=== PATIENT | male | born 1975 | race Caucasian/White ===

== ENCOUNTER 2018-05-19 05:31 | Inpatient (IN) | payer BC, OTHER ==
[~2018-05-19] VITALS: Ht 182.9 cm; Wt 138.9 kg
[~2018-05-19 05:31] MED LIST: ACET-1256 PO; CIPR1TAB11 PO; EFFSR150 PO; FLUT0.15 NAE; LEVO5TAB2 PO; METF-384 PO; MONT1TAB3 PO; OMEG10007 PO; PHEN-571 PO; POLY335019 PO; TAMS0.4C38 PO
[2018-05-19] MEDS ORDERED: MoRPHine SULFATE 10 MG/ML CARP/VIAL IV STA (05:42)
[2018-05-19] MEDS ORDERED: KETOROLAC TROMETHAMINE 30 MG/ML VIAL IV STA (05:42)
[2018-05-19] MEDS ORDERED: ONDANSETRON INJ 2 MG/ML 2 ML VIAL IV STA (05:42)
[2018-05-19] MEDS ORDERED: SODIUM CHLORIDE 0.9% 1000ML 1,000 ML IV ONE (05:45)
[2018-05-19] MEDS ORDERED: GLC/500 PO (06:05)
[2018-05-19] MEDS ORDERED: VENL150C71 PO (06:08)
[2018-05-19 06:09] LABS: BASO % 0.2 %; BASO ABS # 0.02 K/uL (0-0.2); EOS % 0.2 %; EOS ABS # 0.03 K/uL (0-0.5); HEMOGLOBIN 14.1 g/dL (14.0-18.0); IG# 0.04 K/uL (0.00-0.02); LYMPH % 12.7 %; LYMPH ABS # 1.64 K/uL (1.2-3.4); MEAN CELL VOLUME 88.6 fL (80-100); MEAN CORPUSCULAR HEMOGLOBIN 29.7 pg (25-34); MEAN CORPUSCULAR HGB CONC 33.6 g/dl (32-36); MEAN PLATELET VOLUME 10.3 fL (7.4-10.4); MONO % 4.1 %; MONO ABS # 0.53 K/uL (0.11-0.59); NEUT % 82.5 %; NEUT ABS # 10.61 K/uL (1.4-6.5); PLATELET COUNT 217 K/uL (130-400); RED CELL DISTRIBUTION WIDTH CV 14.4 % (11.5-14.5); RED CELL DISTRIBUTION WIDTH SD 47.2 fL (36.4-46.3); WHITE BLOOD COUNT 12.87 K/uL (4.8-10.8)
[2018-05-19 06:29] LABS: CALCIUM 8.8 mg/dl (8.5-10.1); CREATININE 1.33 mg/dl (0.60-1.40); POTASSIUM 3.9 mmol/L (3.5-5.1); TOTAL PROTEIN 7.9 gm/dl (6.4-8.2)
[2018-05-19] MEDS ORDERED: HYDROmorphone INJ 0.5 MG/0.5 ML SYR IV STA (07:25)
--- NOTE | 2018-05-19 08:19 | History and Physical ---
History & Physical Date & Time of Service: May 19, 2018 at 08:00 Chief Complaint: Severe Right Flank Pain,Nausea/Vomiting Primary Care Physician: No Doctor, Assigned History of Present Illness Source: patient 43yo male with history of T2DM, morbid obesity, and prior kidney stone requiring lithotripsy & stent placement who presents with back and right flank pain beginning late last evening. He started having back pain late last night while he and his family were camping at a campground, followed by right flank pain starting about 0130. This was associated with multiple episodes of vomiting as well as vomiting en route to the hospital. He has mild suprapubic pain and dysuria. No obvious fever. Some gross hematuria. He received multiple doses of IV narcotic and anti-emetics in the ER with improved pain and nausea. Past Medical/Surgical History PMH: 1. Nephrolithiasis - 2016, s/p stent placement ([facility] [address]) 2. T2DM 3. allergic rhinitis 4. anxiety PSH: 1. lumbar back surgery - diskectomy 2. 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[employer]) Immunizations History of Influenza Vaccine: Yes History of Tetanus Vaccine?: Yes History of Pneumococcal: No History of Hepatitis B Vaccine: Yes Allergies Coded Allergies: Clarithromycin (Verified Adverse Reaction, Mild, METALLIC TASTE IN MOUTH, 03/13/16) Home Medications Scheduled Fish Oil ([place]-3), 1 CAP PO QPM Fluticasone Propionate (Nasal) (Flonase Allergy Relief), 2 SPRAYS PHONG QAM Levocetirizine Dihydrochloride (Xyzal), 5 MG PO QPM Metformin Hcl (Glucophage), 500 MG PO BID Montelukast Sodium (Singulair), 10 MG PO HS Venlafaxine Hcl (Effexor Xr), 150 MG PO DAILY Scheduled PRN Acetaminophen (Tylenol), 1,000 MG PO TID PRN for Pain Review of Systems Constitutional: + sweats, No fever Eyes: No worsening of vision ENT: + sore throat (from vomiting) Respiratory: No cough, No shortness of breath, No dyspnea on exertion Cardiovascular: No chest pain, No edema Abdomen: + pain, + nausea, + vomiting, No diarrhea, No constipation, No GI bleeding Musculoskeletal: No joint pain Genitourinary - Male: + hematuria, + dysuria Neurologic: + numbness/tingling (left foot - chronic), No memory loss Psychiatric: + anxiety Endocrine: No fatigue Hematologic / Lymphatic: No abnormal bleeding/bruising Integumentary: No rash Allergic / Immunologic: + environmental allergies Physical Exam Vital Signs Date Time Temp Pulse Resp B/P (MAP) Pulse Ox O2 Delivery O2 Flow Rate FiO2 05/19/18 06:44 80 18 156/91 96 Room Air 05/19/18 05:34 36.7 79 18 153/93 95 Room Air General Appearance: no apparent distress, + obese Head: normocephalic, atraumatic Eyes: PERRL ENT: TMs normal, + pharyngeal erythema Neck: supple, no adenopathy, thyroid normal, no JVD Respiratory/Chest: lungs clear, no respiratory distress, no accessory muscle use Cardiovascular: regular rate, rhythm, no gallop, no murmur, normal peripheral pulses Abdomen/GI: normal bowel sounds, non tender, soft, no organomegaly, + pertinent finding (mild flank tenderness, right side) Back: normal inspection Extremities/Musculoskelatal: no pedal edema Neurologic/Psych: no motor/sensory deficits, alert, normal mood/affect, normal reflexes, oriented x 3 Skin: + rash (tinea pedis b/l feet) Lymphatic: no adenopathy (no cervical LAD) Diagnostics Laboratory Results Results Past 24 Hours Test 05/19/18 05:45 05/19/18 05:50 Range/Units Urine Color BROWN Urine Appearance CLOUDY CLEAR Urine pH 5.0 4.5-7.5 Urine Specific [place] 1.027 1.000-1.030 Urine Protein 1+ NEG Urine Glucose (UA) NEG NEG Urine Ketones TRACE NEG Urine Occult Blood 3+ NEG Urine Nitrite NEG NEG Urine Bilirubin NEG NEG Urine Urobilinogen NEG NEG Urine Leukocyte Esterase TRACE NEG Urine WBC (Auto) 1-5 0-5 /hpf Urine RBC (Auto) >30 0-4 /hpf Urine Hyaline Casts (Auto) 5-10 0-5 /lpf Urine Epithelial Cells (Auto) 5-10 0-5 /lpf Urine Bacteria (Auto) NEG NEG Urine Yeast (Auto) NONE PRSENT Bedside Glucose 155 70-99 mg/dl White Blood Count 12.87 4.8-10.8 K/uL Red Blood Count 4.74 4.7-6.1 M/uL Hemoglobin 14.1 14.0-18.0 g/dL Hematocrit 42.0 42-52 % Mean Corpuscular Volume 88.6 80-100 fL Mean Corpuscular Hemoglobin 29.7 25-34 pg Mean Corpuscular Hemoglobin Concent 33.6 32-36 g/dl Platelet Count 217 130-400 K/uL Mean Platelet Volume 10.3 7.4-10.4 fL Neutrophils (%) (Auto) 82.5 % Lymphocytes (%) (Auto) 12.7 % Monocytes (%) (Auto) 4.1 % Eosinophils (%) (Auto) 0.2 % Basophils (%) (Auto) 0.2 % Neutrophils # (Auto) 10.61 1.4-6.5 K/uL Lymphocytes # (Auto) 1.64 1.2-3.4 K/uL Monocytes # (Auto) 0.53 0.11-0.59 K/uL Eosinophils # (Auto) 0.03 0-0.5 K/uL Basophils # (Auto) 0.02 0-0.2 K/uL RDW Standard Deviation 47.2 36.4-46.3 fL RDW Coefficient of Variation 14.4 11.5-14.5 % Immature Granulocyte % (Auto) 0.3 % Immature Granulocyte # (Auto) 0.04 0.00-0.02 K/uL Sodium Level 137 136-145 mmol/L Potassium Level 3.9 3.5-5.1 mmol/L Chloride Level 105 98-107 mmol/L Carbon Dioxide Level 25 21-32 mmol/L Anion Gap 7.0 3-11 mmol/L Blood Urea Nitrogen 19 7-18 mg/dl Creatinine 1.33 0.60-1.40 mg/dl Est Creatinine Clear Calc Drug Dose 103.5 ml/min Estimated GFR () 75.4 Estimated GFR (Non- 65.0 BUN/Creatinine Ratio 14.0 10-20 Random Glucose 155 70-99 mg/dl Calcium Level 8.8 8.5-10.1 mg/dl Total Bilirubin 0.5 0.2-1 mg/dl Aspartate Amino Transf (AST/SGOT) 24 15-37 U/L Alanine Aminotransferase (ALT/SGPT) 38 12-78 U/L Alkaline Phosphatase 71 45-117 U/L Total Protein 7.9 6.4-8.2 gm/dl Albumin 4.0 3.4-5.0 gm/dl Globulin 3.9 2.5-4.0 gm/dl Albumin/Globulin Ratio 1.0 0.9-2 Lipase 264 73-393 U/L Microbiology Results 05/19/18 Urine Culture, Received Pending Diagnostic Radiology CT abd/pelvis - right mid-ureter 6mm kidney stone with mild hydroureteronephrosis Impression Assessment and Plan 43yo male with morbid obesity, prior kidney stone, allergies, and T2DM presenting with right flank pain & vomiting 2nd to an obstructing right-sided kidney stone. 1. right-sided kidney stone - * urology consult requested - I have already spoken with their service * keep NPO except for meds until urology evaluates * copious IV hydration with NS at 200cc/hr * flomax 0.4mg daily * IV pain meds * IV anti-emetics * may have complicating UTI - urine culture pending, antibiotics in meantime * pyridium prn for dysuria * check coags in the event he needs surgical intervention 2. question of UTI - urine culture already sent. Obtain 2 sets of blood cultures and start rocephin 1gm daily. 3. T2DM - hold metformin, BSGs ac/hs, novolog for correction. 4. allergies - substitute zyrtec for xyzal. Cont nasal steroid. 5. DVT proph - SCDs. Chemical means to be held due to possible need for urological surgery. 6. FEN - NPO for now, NS hydration, BMP in am. 7. morbid obesity with BMI 41.5 8. emesis - zantac 50mg IV q8h. Zofran prn. full code level 1 Resuscitation Status VTE Prophylaxis Will order VTE Prophylaxis: Yes (SCDs) Note total visit time 60 minutes
[2018-05-19] MEDS ORDERED: HYDROmorphone INJ 0.5 MG/0.5 ML SYR IV PRN (08:30)
[2018-05-19] MEDS ORDERED: ALUMINUM/MAGNESIUM/SIMETH (MAALOX MAX) 30 ML UDC PO PRN (08:30)
[2018-05-19] MEDS ORDERED: ACETAMINOPHEN 325 MG TAB PO PRN (08:30)
[2018-05-19] MEDS ORDERED: MAGNESIUM HYDROXIDE SUSP 30 ML UDC PO PRN (08:30)
[2018-05-19] MEDS ORDERED: VENLAFAXINE HCL XR 150 MG CAPXR PO SCH (09:00)
--- NOTE | 2018-05-19 09:03 | DIAGNOSTIC IMAGING REPORT ---
ABD/PELVIS WITHOUT FOR STONE CT DOSE: 2305.42 mGy.cm HISTORY: Pain right flank pain TECHNIQUE: Multiaxial CT images of the abdomen and pelvis were performed without the use of intravenous and oral contrast according to the standard department stone protocol. A dose lowering technique was utilized adhering to the principles of ALARA. COMPARISON STUDY: None. FINDINGS: Lung bases are clear. Liver spleen pancreas is unremarkable. Diffuse colonic diverticulosis. 4 mm calcification mid right ureter. Mild fullness right ureter and right renal collecting system. Nonobstructive bowel pattern. Bladder is midline. There are no significant pelvic calcifications. There are several small reactive inguinal nodes. IMPRESSION: 4 mm obstructing calculus mid right ureter. Mild right hydroureteronephrosis. The above report was generated using voice recognition software. It may contain grammatical, syntax or spelling errors. Electronically signed by: Bandar Anne M.D. 05/19/2018 6:48 AM Dictated Date/Time: 05/19/2018 6:40 AM
[2018-05-19 09:35] VITALS: BP 143/91; PULSE 68; TEMP 36.6; Ht 182.9 cm; Wt 138.9 kg
[2018-05-19] MEDS ORDERED: GLUCOSE 40% GEL 15 GM TUBE PO PRN (09:45)
[2018-05-19] MEDS ORDERED: GLUCAGON FOR INJ 1 MG VIAL IM PRN (09:45)
[2018-05-19] MEDS ORDERED: CARBOHYDRATES FOR HYPOGLYCEMIA PO PRN (09:45)
[2018-05-19] MEDS ORDERED: GLUCOSE 10 TABS/TUBE PO PRN (09:45)
[2018-05-19] MEDS ORDERED: DEXTROSE 50% 50 ML SYR IV PRN (09:45)
[2018-05-19] MEDS: SODIUM CHLORIDE 0.9% 1000ML 1,000 ML IV SCH ×4 (10:26→22:43)
[2018-05-19] MEDS: FLUTICASONE PROPIONATE NA SPR 16 GM BTL NAE SCH (11:15)
[2018-05-19] MEDS: TAMSULOSIN HCL 0.4 MG CAP PO SCH (11:19)
[2018-05-19] MEDS: CEFTRIAXONE SOD INJ 1 GM in DEXTROSE 5% ADD-VANTAGE 50ML 50 ML IV SCH (11:20)
--- NOTE | 2018-05-19 11:25 | Urology Consultation ---
History General Date of Service: May 19, 2018. Primary Care Physician: No Doctor, Assigned Pt seen a urologist before?: Yes History of Present Illness Patient is a 43-year-old white male admitted through the emergency room with right renal colic secondary to a 4 mm mid right ureteral calculus. When in the ER the pain was severe currently pain appears to be fairly well- controlled. He has no nausea vomiting fevers or chills currently. Voiding without difficulty. Laboratory Labs were reviewed and are within normal limits unless listed below. 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 History of Influenza Vaccine: Yes History of Tetanus Vaccine?: Yes History of Pneumococcal: No History of Hepatitis B Vaccine: Yes Allergies Coded Allergies: Clarithromycin (Verified Adverse Reaction, Mild, METALLIC TASTE IN MOUTH, 03/13/16) Medications Home Medications: Home Meds and Scripts Medications Dose Route/Sig Max Daily Dose Days Date Category Effexor Xr (Venlafaxine Hcl) 150 Mg Cap 150 Mg PO DAILY 05/19/18 Reported Glucophage (Metformin Hcl) 500 Mg Tab 500 Mg PO BID 05/19/18 Reported Tylenol (Acetaminophen) 500 Mg Tab 1,000 Mg PO TID PRN 03/10/16 Reported [place]-3 (Fish Oil) 1 Ea Cap 1 Cap PO QPM 03/07/16 Reported Singulair (Montelukast Sodium) 10 Mg Tab 10 Mg PO HS 03/07/16 Reported Xyzal (Levocetirizine Dihydrochloride) 5 Mg Tab 5 Mg PO QPM 03/07/16 Reported Flonase Allergy Relief (Fluticasone Propionate (Nasal)) 50 Mcg/Act Spr 2 Sprays PHONG QAM 03/07/16 Reported Inpatient Medications: Current Inpatient Medications Medications (Trade) Dose Ordered Sig/[place] Route Start Time Stop Time Status Last Admin Dose Admin Acetaminophen (Tylenol Tab) 650 mg Q4H PRN PO 05/19/18 08:30 06/18/18 08:29 Al Hydrox/Mg Hydrox/Simethicone (Maalox Max Susp) 15 ml Q4H PRN PO 05/19/18 08:30 06/18/18 08:29 Magnesium Hydroxide (Milk Of Magnesia Susp) 30 ml Q6H PRN PO 05/19/18 08:30 06/18/18 08:29 Ondansetron HCl (Zofran Inj) 4 mg Q6H PRN IV 05/19/18 08:30 06/18/18 08:29 Fluticasone Propionate (Flonase Nasal [place]) 2 sprays QAM PHONG 05/19/18 09:00 06/18/18 08:59 Montelukast Sodium (Singulair Tab) 10 mg HS PO 05/19/18 21:00 06/18/18 20:59 Venlafaxine HCl (effeXOR EXTENDED REL CAP) 150 mg DAILY PO 05/19/18 09:00 06/18/18 08:59 Cetirizine HCl (zyrTEC TAB) 10 mg HS PO 05/19/18 21:00 06/18/18 20:59 Ceftriaxone Sodium 1 gm/ Dextrose 50 ml @ 100 mls/hr Q24H IV 05/19/18 10:00 05/29/18 08:29 05/19/18 11:20 100 MLS/HR Hydromorphone HCl (Dilaudid Inj) 0.5 mg Q3H PRN IV 05/19/18 08:30 06/02/18 08:29 Insulin Aspart (novoLOG ASPART) SLIDING SCALE G... ACHS SC 05/19/18 12:00 06/18/18 11:59 Phenazopyridine HCl (Pyridium Tab) 100 mg TID PRN PO 05/19/18 08:30 06/18/18 08:29 Ranitidine HCl 50 mg/Dextrose 102 ml @ 200 mls/hr Q8H IV 05/19/18 14:00 06/18/18 08:29 Tamsulosin HCl (Flomax Cap) 0.4 mg QAM PO 05/19/18 09:00 06/18/18 08:59 05/19/18 11:19 0.4 MG Sodium Chloride 1,000 ml @ 200 mls/hr Q5H IV 05/19/18 08:30 06/18/18 08:29 05/19/18 10:26 200 MLS/HR Glucose (Glucose 40% Gel) 15-30 GRAMS 15 GRAMS... UD PRN PO 05/19/18 09:45 06/18/18 09:44 Glucose (Glucose Chew Tab) 4-8 Tablets 4 Tabl... UD PRN PO 05/19/18 09:45 06/18/18 09:44 Dextrose (Dextrose 50% 50ML Syringe) 25-50ML 25ML FOR ... UD PRN IV 05/19/18 09:45 06/18/18 09:44 Glucagon (Glucagon Inj) 1 mg UD PRN IM 05/19/18 09:45 06/18/18 09:44 Carbohydrates (Carbohydrates For Hypoglycemia) 15-30 GRAMS 15 grams if BSG 54-69... UD PRN PO 05/19/18 09:45 06/18/18 09:44 Review of Systems Review of Systems Additional Comments: Evaluated from his admitting history and physical and ER notes Physical Exam Vital Signs: Vital Signs Past 12 Hours Date Time Temp Pulse Resp B/P (MAP) Pulse Ox O2 Delivery O2 Flow Rate FiO2 05/19/18 09:35 36.6 68 16 143/91 Room Air 05/19/18 09:15 Room Air 05/19/18 09:01 66 18 133/85 99 05/19/18 08:55 66 18 133/85 99 Room Air 05/19/18 06:44 80 18 156/91 96 Room Air 05/19/18 05:34 36.7 79 18 153/93 95 Room Air Physical Exam: General Appearance: WD/WN, no apparent distress ENT: hearing grossly normal Neck: supple Respiratory/Chest: lungs clear, normal breath sounds Cardiovascular: regular rate, rhythm Gastrointestinal: Abdomen: normal abdomen Assessment & Plan Assessment & Plan Assessment Renal colic secondary to a right ureteral calculus CT reviewed with patient and his stone is approximately 4 mm Several years ago patient had a stent placed for another stone and did not tolerate the stent very well Discussed having extrapleural shockwave lithotripsy tomorrow unstented as if the stone is visible on KUB which he has not had yet I did explain to him that if the stone is not visible then he would be looking at a ureteroscopy laser lithotripsy and stent placement or trial of passage We will review his KUB when available
[2018-05-19] MEDS ORDERED: NURSING VERBAL MED ORDER ONE ×2 (11:30→13:45)
[2018-05-19] MEDS: PHENAZOPYRIDINE HCL 100 MG TAB PO PRN (12:00)
[2018-05-19] MEDS: INSULIN ASPART 100 UNITS/ML 3 ML PEN SC SCH ×3 (12:00→20:58)
--- NOTE | 2018-05-19 13:29 | DIAGNOSTIC IMAGING REPORT ---
KUB CLINICAL HISTORY: Stone pain COMPARISON STUDY: No previous studies for comparison. FINDINGS: The soft tissues, psoas shadows, renal outlines and intestinal gas pattern appear normal. There is no evidence for bowel obstruction. No abnormal abdominal calcifications are seen. IMPRESSION: Normal study. The above report was generated using voice recognition software. It may contain grammatical, syntax or spelling errors. Electronically signed by: Bandar Anne M.D. 05/19/2018 1:27 PM Dictated Date/Time: 05/19/2018 1:25 PM
[2018-05-19] MEDS: ONDANSETRON INJ 2 MG/ML 2 ML VIAL IV PRN (13:30)
[2018-05-19] MEDS: HYDROmorphone INJ 2 MG/ML SYR/VIAL IV PRN ×2 (14:15→19:59)
[2018-05-19] MEDS: RANITIDINE IV 50 MG in DEXTROSE 5% 100ML 100 ML IV SCH ×2 (14:17→21:51)
--- NOTE | 2018-05-19 14:36 | Progress Note ---
Subjective Date of Service: May 19, 2018. (Babmi Webb CRNP) Objective Vital Signs Date Time Temp Pulse Resp B/P (MAP) Pulse Ox O2 Delivery O2 Flow Rate FiO2 05/19/18 09:35 36.6 68 16 143/91 Room Air 05/19/18 09:15 Room Air 05/19/18 09:01 66 18 133/85 99 05/19/18 08:55 66 18 133/85 99 Room Air 05/19/18 06:44 80 18 156/91 96 Room Air 05/19/18 05:34 36.7 79 18 153/93 95 Room Air (Bambi Webb CRNP) Laboratory Results Last 24 Hours Test 05/19/18 05:45 05/19/18 05:50 05/19/18 12:24 Urine Color BROWN Urine Appearance CLOUDY Urine pH 5.0 Urine Specific [place] 1.027 Urine Protein 1+ Urine Glucose (UA) NEG Urine Ketones TRACE Urine Occult Blood 3+ Urine Nitrite NEG Urine Bilirubin NEG Urine Urobilinogen NEG Urine Leukocyte Esterase TRACE Urine WBC (Auto) 1-5 /hpf Urine RBC (Auto) >30 /hpf Urine Hyaline Casts (Auto) 5-10 /lpf Urine Epithelial Cells (Auto) 5-10 /lpf Urine Bacteria (Auto) NEG Urine Yeast (Auto) Bedside Glucose 155 mg/dl 116 mg/dl White Blood Count 12.87 K/uL Red Blood Count 4.74 M/uL Hemoglobin 14.1 g/dL Hematocrit 42.0 % Mean Corpuscular Volume 88.6 fL Mean Corpuscular Hemoglobin 29.7 pg Mean Corpuscular Hemoglobin Concent 33.6 g/dl Platelet Count 217 K/uL Mean Platelet Volume 10.3 fL Neutrophils (%) (Auto) 82.5 % Lymphocytes (%) (Auto) 12.7 % Monocytes (%) (Auto) 4.1 % Eosinophils (%) (Auto) 0.2 % Basophils (%) (Auto) 0.2 % Neutrophils # (Auto) 10.61 K/uL Lymphocytes # (Auto) 1.64 K/uL Monocytes # (Auto) 0.53 K/uL Eosinophils # (Auto) 0.03 K/uL Basophils # (Auto) 0.02 K/uL RDW Standard Deviation 47.2 fL RDW Coefficient of Variation 14.4 % Immature Granulocyte % (Auto) 0.3 % Immature Granulocyte # (Auto) 0.04 K/uL Prothrombin Time 10.8 SECONDS Prothromb Time International Ratio 1.0 Sodium Level 137 mmol/L Potassium Level 3.9 mmol/L Chloride Level 105 mmol/L Carbon Dioxide Level 25 mmol/L Anion Gap 7.0 mmol/L Blood Urea Nitrogen 19 mg/dl Creatinine 1.33 mg/dl Est Creatinine Clear Calc Drug Dose 103.5 ml/min Estimated GFR () 75.4 Estimated GFR (Non- 65.0 BUN/Creatinine Ratio 14.0 Random Glucose 155 mg/dl Calcium Level 8.8 mg/dl Total Bilirubin 0.5 mg/dl Aspartate Amino Transf (AST/SGOT) 24 U/L Alanine Aminotransferase (ALT/SGPT) 38 U/L Alkaline Phosphatase 71 U/L Total Protein 7.9 gm/dl Albumin 4.0 gm/dl Globulin 3.9 gm/dl Albumin/Globulin Ratio 1.0 Lipase 264 U/L (Bambi Webb CRNP) Assessment and Plan Stone not visible on KUB. Patient desires to proceed with cystoscopy, laser lithotripsy with stent placement. Patient believes that he can make it through until tomorrow. Will advance diet today, continue Flomax, IVF, pain management. Strain all urine. Will make NPO at midnight and coordinate procedure for tomorrow. (Bambi Webb CRNP) Agree with plan (Christiano Vallejo M.D.)
[2018-05-19] MEDS ORDERED: IV FLUIDS COMPLETED PRN (14:45)
[2018-05-19 15:17] VITALS: BP 151/89; PULSE 73; TEMP 36.5; O2SAT 94
[2018-05-19 15:45] VITALS: O2SAT 94
--- NOTE | 2018-05-19 16:20 | DIAGNOSTIC IMAGING REPORT ---
CHEST 2 VIEWS ROUTINE CLINICAL HISTORY: Pre op, laser lithotripsy COMPARISON STUDY: 03/10/2016 FINDINGS: The cardiac and mediastinal contours are normal. There is no evidence of focal pulmonary consolidation. There is no evidence of failure. No pleural effusions are visualized.[ IMPRESSION: No active disease in the chest. Electronically signed by: Wellington Booker M.D. 05/19/2018 4:19 PM Dictated Date/Time: 05/19/2018 4:18 PM
[2018-05-19] MEDS: VENLAFAXINE HCL XR 150 MG CAPXR PO SCH (20:59)
[2018-05-19] MEDS: CETIRIZINE HCL 10 MG TAB PO SCH (20:59)
[2018-05-19] MEDS: MONTELUKAST SOD 10 MG TAB PO SCH (20:59)
[2018-05-19 23:06] VITALS: BP 127/72; PULSE 68; TEMP 36.8; O2SAT 97
[2018-05-20] VITALS (8 sets, daily range): BP systolic 124–167; BP diastolic 80–99; PULSE 62–76; TEMP 36.6–36.9; O2SAT 94–97
--- NOTE | 2018-05-20 00:32 | Anesthesiology Progress Note ---
Anesthesia Progress Note Date of Service May 20, 2018. Progress Notes 43yo male with history of T2DM, morbid obesity, and prior kidney stones scheduled for laser lithotripsy. Pt denies history of anesthetic complications. On exam, patient's airway is notable for a MP 3 and morbid obesity. Pt was instructed to remain NPO after midnight except for a sip of water with pills if needed. The patient was consented for general anesthesia. Please contact anesthesia with any questions or concerns. Marilee Baird MD, PhD Anesthesiology
[2018-05-20] MEDS: HYDROmorphone INJ 2 MG/ML SYR/VIAL IV PRN (00:49)
--- NOTE | 2018-05-20 01:01 | EMERGENCY ROOM VISIT NOTE ---
History First contact with patient: 05:38 Chief Complaint: FLANK PAIN Stated Complaint: NEPHROLITHIASIS, NEPHROLITHIASIS History of Present Illness The patient is a 43 year old male who presents to the Emergency Room with complaints of right flank pain that began 4 5 hours ago. The patient does have a history of kidney stones, however his last episode was on the left. His pain feels similar to that previous episode. He was evidently on a short vacation with his family as they were camping between here in the [facility]. The patient states his symptoms began escalating primarily in his back, and that began to radiate into his groin. The pain is a sharp stabbing pain that has a range from a 3/10 to a 10/10. The patient has been experiencing severe nausea and had multiple episodes of emesis when traveling from his campsite to the ER. The patient is diabetic, but believes his sugars have been running well. He had required stenting and a several day hospitalization with his last kidney stone, and was concerned about the same. He attempted to take some Tylenol, however with the nausea and vomiting he is unsure if this is still in his system. Review of Systems More than 10 systems were reviewed and otherwise negative with the exception of history of present illness. 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[employer]) Current/Historical Medications Scheduled Fish Oil (Lamar-3), 1 CAP PO QPM Fluticasone Propionate (Nasal) (Flonase Allergy Relief), 2 SPRAYS PHONG QAM Levocetirizine Dihydrochloride (Xyzal), 5 MG PO QPM Metformin Hcl (Glucophage), 500 MG PO BID Montelukast Sodium (Singulair), 10 MG PO HS Venlafaxine Hcl (Effexor Xr), 150 MG PO DAILY Scheduled PRN Acetaminophen (Tylenol), 1,000 MG PO TID PRN for Pain Physical Exam Vital Signs Date Time Temp Pulse Resp B/P (MAP) Pulse Ox O2 Delivery O2 Flow Rate FiO2 05/19/18 06:44 80 18 156/91 96 Room Air 05/19/18 05:34 36.7 79 18 153/93 95 Room Air Physical Exam VITALS: Vitals are noted on the nurse's note and reviewed by myself. Vital signs stable. GENERAL: Well-developed, well-nourished, white male who is in moderate discomfort secondary to his stated complaint. He is diaphoretic. HEART: Regular rate and rhythm without murmurs gallops or rubs. LUNGS: Clear to auscultation bilaterally without wheezes, rales or rhonchi. No retractions or accessory muscle use. ABDOMEN: Positive normal bowel sounds x 4. Soft, nontender, without masses or organomegaly. No guarding or rebound tenderness. Mild right CVA tenderness. MUSCULOSKELETAL: No muscle atrophy, erythema, or edema noted. Full range of motion in all extremities. Medical Decision & Procedures ER Provider Diagnostic Interpretation: ABD/PELVIS WITHOUT FOR STONE CT DOSE: 2305.42 mGy.cm HISTORY: Pain right flank pain TECHNIQUE: Multiaxial CT images of the abdomen and pelvis were performed without the use of intravenous and oral contrast according to the standard department stone protocol. A dose lowering technique was utilized adhering to the principles of ALARA. COMPARISON STUDY: None. FINDINGS: Lung bases are clear. Liver spleen pancreas is unremarkable. Diffuse colonic diverticulosis. 4 mm calcification mid right ureter. Mild fullness right ureter and right renal collecting system. Nonobstructive bowel pattern. Bladder is midline. There are no significant pelvic calcifications. There are several small reactive inguinal nodes. IMPRESSION: 4 mm obstructing calculus mid right ureter. Mild right hydroureteronephrosis. Laboratory Results 05/19/18 05:50 Red Blood Count 4.74, Mean Corpuscular Volume 88.6, Mean Corpuscular Hemoglobin 29.7, Mean Corpuscular Hemoglobin Concent 33.6, Mean Platelet Volume 10.3, Neutrophils (%) (Auto) 82.5, Lymphocytes (%) (Auto) 12.7, Monocytes (%) (Auto) 4.1, Eosinophils (%) (Auto) 0.2, Basophils (%) (Auto) 0.2, Neutrophils # (Auto) 10.61, Lymphocytes # (Auto) 1.64, Monocytes # (Auto) 0.53, Eosinophils # (Auto) 0.03, Basophils # (Auto) 0.02 05/19/18 05:50 Test 05/19/18 05:45 05/19/18 05:50 Urine Color BROWN Urine Appearance CLOUDY (CLEAR) Urine pH 5.0 (4.5-7.5) Urine Specific [place] 1.027 (1.000-1.030) Urine Protein 1+ (NEG) Urine Glucose (UA) NEG (NEG) Urine Ketones TRACE (NEG) Urine Occult Blood 3+ (NEG) Urine Nitrite NEG (NEG) Urine Bilirubin NEG (NEG) Urine Urobilinogen NEG (NEG) Urine Leukocyte Esterase TRACE (NEG) Urine WBC (Auto) 1-5 /hpf (0-5) Urine RBC (Auto) >30 /hpf (0-4) Urine Hyaline Casts (Auto) 5-10 /lpf (0-5) Urine Epithelial Cells (Auto) 5-10 /lpf (0-5) Urine Bacteria (Auto) NEG (NEG) Urine Yeast (Auto) (NONE PRSENT) White Blood Count 12.87 K/uL (4.8-10.8) Red Blood Count 4.74 M/uL (4.7-6.1) Hemoglobin 14.1 g/dL (14.0-18.0) Hematocrit 42.0 % (42-52) Mean Corpuscular Volume 88.6 fL (80-100) Mean Corpuscular Hemoglobin 29.7 pg (25-34) Mean Corpuscular Hemoglobin Concent 33.6 g/dl (32-36) Platelet Count 217 K/uL (130-400) Mean Platelet Volume 10.3 fL (7.4-10.4) Neutrophils (%) (Auto) 82.5 % Lymphocytes (%) (Auto) 12.7 % Monocytes (%) (Auto) 4.1 % Eosinophils (%) (Auto) 0.2 % Basophils (%) (Auto) 0.2 % Neutrophils # (Auto) 10.61 K/uL (1.4-6.5) Lymphocytes # (Auto) 1.64 K/uL (1.2-3.4) Monocytes # (Auto) 0.53 K/uL (0.11-0.59) Eosinophils # (Auto) 0.03 K/uL (0-0.5) Basophils # (Auto) 0.02 K/uL (0-0.2) RDW Standard Deviation 47.2 fL (36.4-46.3) RDW Coefficient of Variation 14.4 % (11.5-14.5) Immature Granulocyte % (Auto) 0.3 % Immature Granulocyte # (Auto) 0.04 K/uL (0.00-0.02) Prothrombin Time 10.8 SECONDS (9.0-12.0) Prothromb Time International Ratio 1.0 (0.9-1.1) Anion Gap 7.0 mmol/L (3-11) Est Creatinine Clear Calc Drug Dose 103.5 ml/min Estimated GFR () 75.4 Estimated GFR (Non- 65.0 BUN/Creatinine Ratio 14.0 (10-20) Calcium Level 8.8 mg/dl (8.5-10.1) Total Bilirubin 0.5 mg/dl (0.2-1) Aspartate Amino Transf (AST/SGOT) 24 U/L (15-37) Alanine Aminotransferase (ALT/SGPT) 38 U/L (12-78) Alkaline Phosphatase 71 U/L (45-117) Total Protein 7.9 gm/dl (6.4-8.2) Albumin 4.0 gm/dl (3.4-5.0) Globulin 3.9 gm/dl (2.5-4.0) Albumin/Globulin Ratio 1.0 (0.9-2) Lipase 264 U/L (73-393) Medications Administered Medications (Trade) Dose Ordered Sig/Korina Route Start Time Stop Time Status Last Admin Dose Admin Sodium Chloride 1,000 ml @ 999 mls/hr Q1H1M ONCE IV 05/19/18 05:45 05/19/18 06:45 DC 05/19/18 05:54 999 MLS/HR Ketorolac Tromethamine (Toradol Inj) 30 mg NOW STAT IV 05/19/18 05:42 05/19/18 05:48 DC 05/19/18 05:53 30 MG Ondansetron HCl (Zofran Inj) 4 mg NOW STAT IV 05/19/18 05:42 05/19/18 05:48 DC 05/19/18 05:53 4 MG Morphine Sulfate (MoRPHine SULFATE INJ) 8 mg NOW STAT IV 05/19/18 05:42 05/19/18 05:48 DC 05/19/18 05:53 8 MG Hydromorphone HCl (Dilaudid Inj) 0.5 mg NOW STAT IV 05/19/18 07:25 05/19/18 07:26 DC 05/19/18 07:51 0.5 MG Ondansetron HCl (Zofran Inj) 4 mg Q6H PRN IV 05/19/18 08:30 06/18/18 08:29 05/19/18 13:30 4 MG Hydromorphone HCl (Dilaudid Inj) 0.5 mg Q3H PRN IV 05/19/18 08:30 05/19/18 13:46 DC 05/19/18 12:23 0.5 MG Phenazopyridine HCl (Pyridium Tab) 100 mg TID PRN PO 05/19/18 08:30 06/18/18 08:29 05/19/18 12:00 100 MG Sodium Chloride 1,000 ml @ 200 mls/hr Q5H IV 05/19/18 08:30 06/18/18 08:29 05/19/18 22:43 200 MLS/HR ED Course Physical exam and history were performed. Nursing notes, EMR, and Medication List were personally reviewed. Patient appears to have right flank pain bringing him to the emergency department today. The patient was able to provide a urine prior to my arrival to the room and this is brown/bloody on inspection. IV access was established and labs were obtained. Bedside glucose was 155. The patient was hydrated with normal saline. He was given IV Toradol, IV morphine, IV Dilaudid, and IV Zofran for comfort. CT scan was ordered to better evaluate his symptoms. The patient's blood work is as above and was reviewed. The patient does have a mildly elevated white blood cell count. I am unsure if this is from infection or stress reaction from his vomiting in route to the facility. He does not have a significant anemia or gross electrolyte imbalance. His urine is quite bloody. The CT scan is as above and does reveal an obstructing mid ureteral calculi, which does correlate with his symptoms. On reevaluation the patient did have significant improvement of his discomfort after IV narcotics. I discussed options of care with the patient, and he does not feel well for discharge home. He did have a very complicated ureteral stone history in the past, and he is concerned that he may require further urologic intervention. I discussed the case with the on-call hospitalist, who agreed to evaluate the patient here in the department. Please see their dictation for further patient course, plan, and disposition. The chart was completed utilizing Dragon Speech Voice Recognition Software. Grammatical errors, random word insertions, pronoun errors, and incomplete sentences are an occasional consequence of this system due to software limitations, ambient noise, and hardware issues. Any formal questions or concerns about the content, text, or information contained within the body of this dictation should be directly addressed to the provider for clarification. . Medical Decision Differential diagnosis: Etiologies such as renal colic, appendicitis, diverticulitis, mesenteric ischemia, aortic pathology, infections, inflammatory bowel disease, PUD, biliary pathology, UTI, as well as others were entertained. Impression Primary Impression: Nephrolithiasis Additional Impression: Right flank pain Departure Information Dispostion Still a Patient Condition GOOD Referrals No Doctor, Assigned (PCP) Forms HOME CARE DOCUMENTATION FORM, IMPORTANT VISIT INFORMATION Patient Instructions [facility] Health Problem Qualifiers
[2018-05-20] MEDS ORDERED: NURSING DECISION MEDICATION ORDER SCH (01:30)
[2018-05-20] MEDS: SODIUM CHLORIDE 0.9% 1000ML 1,000 ML IV SCH ×4 (03:42→20:15)
[2018-05-20] MEDS: RANITIDINE IV 50 MG in DEXTROSE 5% 100ML 100 ML IV SCH ×2 (05:37→13:51)
[2018-05-20] MEDS: INSULIN ASPART 100 UNITS/ML 3 ML PEN SC SCH ×3 (06:00→21:33)
[2018-05-20 06:47] LABS: BASO % 0.2 %; BASO ABS # 0.02 K/uL (0-0.2); EOS % 1.3 %; EOS ABS # 0.12 K/uL (0-0.5); IG# 0.02 K/uL (0.00-0.02); LYMPH % 30.3 %; LYMPH ABS # 2.78 K/uL (1.2-3.4); MEAN CELL VOLUME 88.9 fL (80-100); MEAN CORPUSCULAR HEMOGLOBIN 28.8 pg (25-34); MEAN CORPUSCULAR HGB CONC 32.4 g/dl (32-36); MEAN PLATELET VOLUME 10.3 fL (7.4-10.4); MONO % 5.8 %; MONO ABS # 0.53 K/uL (0.11-0.59); NEUT % 62.2 %; PLATELET COUNT 179 K/uL (130-400); RED CELL DISTRIBUTION WIDTH CV 14.4 % (11.5-14.5); RED CELL DISTRIBUTION WIDTH SD 47.2 fL (36.4-46.3); WHITE BLOOD COUNT 9.17 K/uL (4.8-10.8)
[2018-05-20 07:19] LABS: CALCIUM 7.9 mg/dl (8.5-10.1); CREATININE 1.19 mg/dl (0.60-1.40); POTASSIUM 4.1 mmol/L (3.5-5.1)
[2018-05-20] MEDS: TAMSULOSIN HCL 0.4 MG CAP PO SCH (08:30)
[2018-05-20] MEDS: FLUTICASONE PROPIONATE NA SPR 16 GM BTL NAE SCH (08:30)
[2018-05-20] MEDS: PHENAZOPYRIDINE HCL 100 MG TAB PO PRN ×2 (08:31→20:05)
[2018-05-20] MEDS: CEFTRIAXONE SOD INJ 1 GM in DEXTROSE 5% ADD-VANTAGE 50ML 50 ML IV SCH (10:08)
--- NOTE | 2018-05-20 13:10 | Urology Progress Note ---
Progress Note Date of Service May 20, 2018. Subjective Pt evaluation today including: conversation w/ patient, physical exam, chart review, lab review, review of studies Pain: Controlled PO Intake: NPO today for procedure Voiding: no voiding problems 43 YO male, mid right ureteral stone Reports that his pain continues in the right flank, controlled with pain medication Has been straining all urine, no stone passage Denies nausea/vomiting Remains afebrile Increased urinary frequency and intermittent hematuria Constitutional: No fever, No chills Respiratory: No shortness of breath Cardiovascular: No chest pain Abdomen: No nausea, No vomiting Male : + urinary frequency, No dysuria, No incontinence Neurologic: No numbness/tingling Objective Vital Signs Date Time Temp Pulse Resp B/P (MAP) Pulse Ox O2 Delivery O2 Flow Rate FiO2 05/20/18 08:49 97 Room Air 05/20/18 08:25 Room Air 05/20/18 07:50 36.7 66 16 124/80 (95) 97 Room Air 05/20/18 00:02 Room Air 05/19/18 23:06 36.8 68 18 127/72 (90) 97 Room Air 05/19/18 15:45 94 Room Air 05/19/18 15:17 36.5 73 18 151/89 (109) 94 Room Air Physical Exam General Appearance: no apparent distress ENT: hearing grossly normal Neck: supple, no JVD Respiratory/Chest: no respiratory distress, no accessory muscle use Cardiovascular: no edema, no JVD Abdomen: soft, + tenderness Extremities: normal inspection Neurologic/Psychiatric: alert, normal mood/affect, oriented x 3 Skin: normal color, warm/dry Laboratory Results Last 24 Hours Test 05/19/18 17:03 05/19/18 20:15 05/20/18 06:01 05/20/18 06:10 Bedside Glucose 185 mg/dl 137 mg/dl 139 mg/dl White Blood Count 9.17 K/uL Red Blood Count 4.16 M/uL Hemoglobin 12.0 g/dL Hematocrit 37.0 % Mean Corpuscular Volume 88.9 fL Mean Corpuscular Hemoglobin 28.8 pg Mean Corpuscular Hemoglobin Concent 32.4 g/dl Platelet Count 179 K/uL Mean Platelet Volume 10.3 fL Neutrophils (%) (Auto) 62.2 % Lymphocytes (%) (Auto) 30.3 % Monocytes (%) (Auto) 5.8 % Eosinophils (%) (Auto) 1.3 % Basophils (%) (Auto) 0.2 % Neutrophils # (Auto) 5.70 K/uL Lymphocytes # (Auto) 2.78 K/uL Monocytes # (Auto) 0.53 K/uL Eosinophils # (Auto) 0.12 K/uL Basophils # (Auto) 0.02 K/uL RDW Standard Deviation 47.2 fL RDW Coefficient of Variation 14.4 % Immature Granulocyte % (Auto) 0.2 % Immature Granulocyte # (Auto) 0.02 K/uL Sodium Level 139 mmol/L Potassium Level 4.1 mmol/L Chloride Level 109 mmol/L Carbon Dioxide Level 23 mmol/L Anion Gap 7.0 mmol/L Blood Urea Nitrogen 14 mg/dl Creatinine 1.19 mg/dl Est Creatinine Clear Calc Drug Dose 115.6 ml/min Estimated GFR () 86.2 Estimated GFR (Non- 74.4 BUN/Creatinine Ratio 12.1 Random Glucose 142 mg/dl Calcium Level 7.9 mg/dl Test 05/20/18 12:03 Bedside Glucose 106 mg/dl Assessment and Plan Will proceed with cystoscopy, laser lithotripsy, with right ureteral stent placement this afternoon. Patient voices understanding and wishes to proceed. If tolerated well likely discharge this evening, possibly tomorrow for pain control. Outpatient follow up to be coordinated.
[2018-05-20] MEDS ORDERED: MIDAZOLAM HCL 1 MG/ML 2ML VIAL ONE (14:46)
[2018-05-20] MEDS ORDERED: FENTANYL CITRATE INJ 50 MCG/1 ML 2 ML VIAL ONE (14:47)
[2018-05-20] MEDS ORDERED: Cysto-Conray II 17.2% 250ML BOTTLE ONE (14:49)
[2018-05-20] MEDS ORDERED: LIDOCAINE HCL 2% 2 ML VIAL (20MG/ML) ONE (14:50)
[2018-05-20] MEDS ORDERED: ONDANSETRON INJ 2 MG/ML 2 ML VIAL ONE (14:50)
[2018-05-20] MEDS ORDERED: DEXAMETHASONE SOD INJ 4 MG/ML VIAL ONE (14:50)
[2018-05-20] MEDS ORDERED: PROPOFOL IV EMULSION 10 MG/ML 20 ML VIAL ONE ×2 (14:50→16:36)
[2018-05-20] MEDS ORDERED: PHEN-775 PO (16:25)
[2018-05-20] MEDS ORDERED: CIPR-255 PO (16:25)
[2018-05-20] MEDS ORDERED: POTATAB13 PO (16:25)
[2018-05-20] MEDS ORDERED: OXYC7.5T65 PO (16:25)
--- NOTE | 2018-05-20 16:27 | Discharge Instructions ---
Discharge Instructions Date of Service May 20, 2018. Admission Reason for Admission: Nephrolithiasis, Nephrolithiasis Discharge Discharge Diagnosis / Problem: R ureteral stone s/p uscope, laser litho, stent Discharge Goals Goal(s): Decrease discomfort, Improve function, Improve disease control, Therapeutic intervention Activity Recommendations Activity Limitations: per Instructions/Follow-up section Lifting Limitations: no more than 25 pounds, gradually increase as tolerated Exercise/Sports Limitations: rest today, gradually increase as tolerated May Resume Sexual Activity: when tolerated, after one week Shower/Bathe: no limitations Driving or Machine Use: resume 1 day after discharge . Instructions / Follow-Up Instructions / Follow-Up Follow-up in [facility] for stent removal - office will call Wednesday for visit date and time. Current Hospital Diet Patient's current hospital diet: Diabetes Type 2 Diet Discharge Diet Recommended Diet: Regular Diet (good fluid intake) Procedures Procedures Performed: Cystoscopy, left semirigid ureteroscopy with basket stone extraction and ureteral stent placement Pending Studies Studies pending at discharge: yes List of pending studies: Stone analysis Medical Emergencies . Who to Call and When: Medical Emergencies: If at any time you feel your situation is an emergency, please call 911 immediately. . Non-Emergent Contact Non-Emergency issues call your: Urologist Call Non-Emergent contact if: you have a fever, temperature is above 101, your pain is not controlled, your pain is worsening, your pain is unusual for you, your pain is concerning you, you have any medication questions . . "Provider Documentation" section prepared by Juanjose Owens. . [place] Drug Monitoring Program Search Results: patient reviewed within database, no issues identified
[2018-05-20] MEDS ORDERED: SUCCINYLCHOLINE 100MG/5ML SYR IV ONE (16:36)
--- NOTE | 2018-05-20 16:55 | [facility] Operative Report ---
Operative Report Operative Date May 20, 2018. Pre-Operative Diagnosis Right radiolucent ureteral stone with intractable colic Post-Operative Diagnosis Right radiolucent ureteral stone with intractable colic Procedure(s) Performed Cystoscopy, left semirigid ureteroscopy with basket stone extraction and ureteral stent placement, meatal dilation Surgeon Dr. 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 Specimens A. Right ureteral stone for chemical analysis Drains 6 [place] 28 cm loop stent on the right-hand side Anesthesia Type General Complication(s) none Disposition no Recovery Room / PACU Indications 43-year-old male with a history of stone disease admitted for acute renal colic to have a radiolucent stone on KUB. Please see urology consultation and progress notes for further details. He is being brought today to the operating room for endoscopic management of his disease. Intravenous ciprofloxacin was provided for antibiotic coverage and SCDs used for DVT prophylaxis. Consent obtained from the patient preoperatively today. Description of Procedure Patient was properly identified and brought into the operative suite after identification for proper consent of the chart. General anesthesia with endotracheal intubation was initiated and patient was prepped and draped in the standard fashion for this procedure. Full timeout procedure was followed. Attempts at passing a 22 [place] rigid cystoscope met with resistance at the level of the meatus consistent with the patient's previous history of meatal stenosis. This was able to be dilated using the rigid cystoscope obturator. 22 [place] rigid cystoscope was passed into the bladder under direct visualization demonstrating an elevated bladder neck with minimal lateral lobe hypertrophy. Mild bladder trabeculation was present with no intravesical lesions, papillary masses or mucosal changes. Left-sided ureteral orifice was noted to be in the normal anatomic location of the right-sided ureteral orifice was noted to have stone material at the orifice. Sensor tip wire was able to be advanced past this up to the level of the right kidney and left in place until the end of the case as a safety wire. Using a second working wire a semirigid ureteroscope was able to be passed beyond the stone and a relatively dilated ureter was noted. Stone was small enough to be able to be grasped using an open-ended basket and extracted from the ureter without resistance or difficulties. Semirigid ureteroscope was readvanced with the ureter up to the level of the vessels with no additional stones being appreciated. A solitary stone was present on CT scan imaging preoperatively. Complete exit ureteroscopy was performed demonstrating no evidence of ureteral injuries or tears. Cystoscope was backloaded over the safety wire and a 6 [place] 28 cm loop ureteral stent was advanced with redundant loops being present within the bladder and a full coil at the level of the right renal pelvis. Hydronephrotic drip was appreciated. Bladder drained and cystoscope was removed. Anesthesia was reversed the patient was transferred to recovery room in stable condition. Follow-up instructions: Patient should be stable for discharge home later today. Prescription for ciprofloxacin, Percocet, Pyridium and potassium citrate for urine pH of 5 and radiolucent stone, suspected uric acid lithiasis is provided. Will arrange for outpatient cystoscopy and stent removal. Patient is instructed to contact our service should he note any fevers, chills, nausea, vomiting or other difficulties in the postoperative period. I attest to the content of the Intraoperative Record and any orders documented therein. Any exceptions are noted below.
[2018-05-20] MEDS ORDERED: PHENAZOPYRIDINE HCL 200 MG TAB PO PRN (17:00)
[2018-05-20] MEDS ORDERED: OXYCODONE/ACETAMINOPHEN 5-325 TAB PO PRN (17:00)
--- NOTE | 2018-05-20 17:05 | DIAGNOSTIC IMAGING REPORT ---
RETROGRADE INCLUDES KUB CLINICAL HISTORY: RT LASER LITHOTRIPSY AND STENT PLACEMENT COMPARISON STUDY: CT of the abdomen and pelvis and KUB May 19, 2018. Fluoroscopy time: 24 seconds. FINDINGS: 3 fluoroscopic images from right retrograde exam were submitted for interpretation. These images demonstrate cannulation of the right ureter with placement of a right ureteral stent which appears appropriately positioned. IMPRESSION: Fluoroscopic images from right retrograde exam with ureteral stent insertion. Electronically signed by: Juan Guerrero M.D. 05/20/2018 5:04 PM Dictated Date/Time: 05/20/2018 5:03 PM
[2018-05-20] MEDS ORDERED: FENTANYL CITRATE INJ 50 MCG/1 ML 2 ML VIAL IV PRN (17:30)
[2018-05-20] MEDS ORDERED: ONDANSETRON INJ 2 MG/ML 2 ML VIAL IV PRN (17:30)
[2018-05-20] MEDS ORDERED: ATROPINE SULFATE 0.1 MG/ML 5ML SYR IV PRN (17:30)
--- NOTE | 2018-05-20 17:32 | Anesthesiology Progress Note ---
Anesthesia Post Op Note Date & Time May 20, 2018 at 17:32 Vital Signs Pain Intensity: 0 Vital Signs Past 12 Hours Date Time Temp Pulse Resp B/P (MAP) Pulse Ox O2 Delivery O2 Flow Rate FiO2 05/20/18 17:25 67 18 139/94 100 Oxymask 10 05/20/18 17:15 76 20 119/70 100 Oxymask 10 05/20/18 17:07 36.8 70 20 103/74 98 Oxymask 10 05/20/18 15:23 36.9 60 16 128/84 (99) 100 Room Air 05/20/18 15:07 36.6 62 18 147/80 (102) 97 Room Air 05/20/18 08:49 97 Room Air 05/20/18 08:25 Room Air 05/20/18 07:50 36.7 66 16 124/80 (95) 97 Room Air Notes Mental Status: alert / awake / arousable, participated in evaluation Pt Amnestic to Procedure: Yes Nausea / Vomiting: adequately controlled Pain: adequately controlled Airway Patency, RR, SpO2: stable & adequate BP & HR: stable & adequate Hydration State: stable & adequate Anesthetic Complications: no major complications apparent
[2018-05-20] MEDS ORDERED: NURSING VERBAL MED ORDER ONE (18:45)
[2018-05-20] MEDS: ONDANSETRON INJ 2 MG/ML 2 ML VIAL IV PRN (20:02)
[2018-05-20] MEDS: OXYCODONE/ACETAMINOPHEN 5-325 TAB PO PRN (20:03)
[2018-05-20] MEDS: VENLAFAXINE HCL XR 150 MG CAPXR PO SCH (21:33)
[2018-05-20] MEDS: MONTELUKAST SOD 10 MG TAB PO SCH (21:33)
[2018-05-20] MEDS: CETIRIZINE HCL 10 MG TAB PO SCH (21:33)
--- NOTE | 2018-05-21 00:41 | Progress Note ---
Subjective Date of Service: May 20, 2018. Subjective Pt evaluation today including: conversation w/ patient, conversation w/ family ( at bedside), physical exam, chart review, lab review Pain: none during the visit PO Intake: was NPO for cysto/stent placement Voiding: no voiding problems feels much better today but did have significant flank/abdominal pain overnight no dizziness no dyspnea no chest pain no vomiting Problem List Medical Problems: (1) Right flank pain Status: Acute Review of Systems Constitutional: No fever, No chills Respiratory: No cough, No shortness of breath Cardiac: No chest pain Abdomen: + pain Objective Vital Signs Date Time Temp Pulse Resp B/P (MAP) Pulse Ox O2 Delivery O2 Flow Rate FiO2 05/20/18 20:00 36.7 75 22 167/99 (121) 97 Room Air 05/20/18 19:11 36.7 64 22 160/93 (115) 94 Room Air 05/20/18 18:30 36.9 76 18 131/84 (100) 94 Room Air 05/20/18 18:30 94 Room Air 05/20/18 17:58 36.9 62 18 133/80 (97) 97 Room Air 05/20/18 17:45 36.6 68 18 134/87 95 Room Air 05/20/18 17:35 67 18 134/85 93 Room Air 05/20/18 17:25 67 18 139/94 100 Oxymask 10 05/20/18 17:15 76 20 119/70 100 Oxymask 10 05/20/18 17:07 36.8 70 20 103/74 98 Oxymask 10 05/20/18 15:23 36.9 60 16 128/84 (99) 100 Room Air 05/20/18 15:07 36.6 62 18 147/80 (102) 97 Room Air 05/20/18 08:49 97 Room Air 05/20/18 08:25 Room Air 05/20/18 07:50 36.7 66 16 124/80 (95) 97 Room Air 05/20/18 00:02 Room Air 05/19/18 23:06 36.8 68 18 127/72 (90) 97 Room Air Physical Exam General Appearance: no apparent distress, + obese ENT: pharynx normal Neck: no JVD Respiratory/Chest: lungs clear, no respiratory distress, no accessory muscle use Cardiovascular: regular rate, rhythm, no gallop, no murmur Abdomen: normal bowel sounds, non tender, soft, no organomegaly Extremities: no pedal edema Neurologic/Psychiatric: alert, normal mood/affect, oriented x 3 Laboratory Results Last 24 Hours Test 05/20/18 06:01 05/20/18 06:10 05/20/18 12:03 05/20/18 17:12 Bedside Glucose 139 mg/dl 106 mg/dl 122 mg/dl White Blood Count 9.17 K/uL Red Blood Count 4.16 M/uL Hemoglobin 12.0 g/dL Hematocrit 37.0 % Mean Corpuscular Volume 88.9 fL Mean Corpuscular Hemoglobin 28.8 pg Mean Corpuscular Hemoglobin Concent 32.4 g/dl Platelet Count 179 K/uL Mean Platelet Volume 10.3 fL Neutrophils (%) (Auto) 62.2 % Lymphocytes (%) (Auto) 30.3 % Monocytes (%) (Auto) 5.8 % Eosinophils (%) (Auto) 1.3 % Basophils (%) (Auto) 0.2 % Neutrophils # (Auto) 5.70 K/uL Lymphocytes # (Auto) 2.78 K/uL Monocytes # (Auto) 0.53 K/uL Eosinophils # (Auto) 0.12 K/uL Basophils # (Auto) 0.02 K/uL RDW Standard Deviation 47.2 fL RDW Coefficient of Variation 14.4 % Immature Granulocyte % (Auto) 0.2 % Immature Granulocyte # (Auto) 0.02 K/uL Sodium Level 139 mmol/L Potassium Level 4.1 mmol/L Chloride Level 109 mmol/L Carbon Dioxide Level 23 mmol/L Anion Gap 7.0 mmol/L Blood Urea Nitrogen 14 mg/dl Creatinine 1.19 mg/dl Est Creatinine Clear Calc Drug Dose 115.6 ml/min Estimated GFR () 86.2 Estimated GFR (Non- 74.4 BUN/Creatinine Ratio 12.1 Random Glucose 142 mg/dl Calcium Level 7.9 mg/dl Assessment and Plan 43yo male with morbid obesity, prior kidney stone, allergies, and T2DM presenting with right flank pain & vomiting 2nd to an obstructing right-sided kidney stone. 1. right-sided kidney stone - symptomatically he is feeling better. However, the plan is for cystoscopy, laser lithotripsy, and stent placement today by Dr. Owens. Will likely remain overnight for observation. 2. question of UTI - urine culture and blood cultures are negative. Can d/c rocephin. No evidence of UTI. 3. T2DM - holding metformin, BSGs ac/hs, novolog for correction. Controlled. 4. allergies - substituting zyrtec for xyzal. Cont nasal steroid. 5. DVT proph - SCDs. Chemical means held at this time. 6. FEN - following his cystoscopy he can eat as tolerated. Cut fluid rate after his procedure to 50cc/hr. BMP am. 7. morbid obesity with BMI 41.5 8. emesis - resolved; has not recurred. hopefully home tomorrow Continued [facility] stay due to: other (cystoscopy with stent placement, etc ) Discharge planning: home
[2018-05-21] MEDS: OXYCODONE/ACETAMINOPHEN 5-325 TAB PO PRN ×2 (01:31→11:29)
[2018-05-21 03:50] VITALS: BP 141/91; PULSE 66; TEMP 36.9; O2SAT 93
[2018-05-21 06:54] VITALS: BP 133/82; PULSE 58; TEMP 36.5; O2SAT 97
--- NOTE | 2018-05-21 07:34 | Progress Note ---
Subjective Date of Service: May 21, 2018. Subjective Pt evaluation today including: conversation w/ patient, physical exam, chart review, lab review, review of inpatient medication list Pain: Dysuria, flank pain resolved. PO Intake: Tolerating a regular diet Voiding: voiding difficulty (Dysuria as noted, likely from meatal stenosis.) 43-year-old male postoperative day #1 status post right ureteroscopy and stone basketing with ureteral stent placement and meatal dilation. He notes dysuria postoperatively but his flank pain is improved. He is tolerating his current stent better than his previous one. Past notes reviewed and intraoperative findings noted with patient. Discharge held yesterday per the hospitalist service due to late time and travel distance per patient. Problem List Medical Problems: (1) Right flank pain Status: Acute Review of Systems Constitutional: No fever, No chills Eyes: No worsening of vision ENT: No hearing loss Respiratory: No sputum, No shortness of breath Cardiac: No chest pain Abdomen: No nausea, No vomiting Male : + dysuria Neurologic: No memory loss, No paralysis Psychiatric: No depression symptoms Heme: No clotting problems Endo: No fatigue Skin: No new/changing skin lesions Objective Vital Signs Date Time Temp Pulse Resp B/P (MAP) Pulse Ox O2 Delivery O2 Flow Rate FiO2 05/21/18 06:54 36.5 58 16 133/82 (99) 97 Room Air 05/21/18 03:50 36.9 66 16 141/91 (108) 93 Room Air 05/20/18 23:50 Room Air 05/20/18 23:39 36.8 65 16 148/89 (108) 97 Room Air 05/20/18 20:00 36.7 75 22 167/99 (121) 97 Room Air 05/20/18 19:11 36.7 64 22 160/93 (115) 94 Room Air 05/20/18 18:30 36.9 76 18 131/84 (100) 94 Room Air 05/20/18 18:30 94 Room Air 05/20/18 17:58 36.9 62 18 133/80 (97) 97 Room Air 05/20/18 17:45 36.6 68 18 134/87 95 Room Air 05/20/18 17:35 67 18 134/85 93 Room Air 05/20/18 17:25 67 18 139/94 100 Oxymask 10 05/20/18 17:15 76 20 119/70 100 Oxymask 10 05/20/18 17:07 36.8 70 20 103/74 98 Oxymask 10 05/20/18 15:23 36.9 60 16 128/84 (99) 100 Room Air 05/20/18 15:07 36.6 62 18 147/80 (102) 97 Room Air 05/20/18 08:49 97 Room Air 05/20/18 08:25 Room Air 05/20/18 07:50 36.7 66 16 124/80 (95) 97 Room Air Physical Exam General Appearance: no apparent distress, + obese Eyes: normal inspection ENT: normal ENT inspection, hearing grossly normal Neck: supple, no adenopathy Respiratory/Chest: no respiratory distress, no accessory muscle use Cardiovascular: no JVD Abdomen: non tender, soft Extremities: non-tender Neurologic/Psychiatric: alert Skin: normal color Laboratory Results Last 24 Hours Test 05/20/18 12:03 05/20/18 17:12 05/20/18 19:22 05/20/18 20:51 Bedside Glucose 106 mg/dl 122 mg/dl 145 mg/dl 174 mg/dl Test 05/21/18 06:58 Assessment and Plan A/P 43-year-old male postoperative day #1 status post right U scope. Will see in the the office for outpatient stent removal as planned this coming week. Prescriptions placed in chart postoperatively yesterday and DC instructions reviewed. We will discuss stone analysis at the time of his follow-up appointment should be available. Patient should be stable for discharge home. Continued [facility] stay due to: other (cystoscopy with stent placement, etc ) Discharge planning: home
[2018-05-21 07:50] LABS: CREATININE 1.15 mg/dl (0.60-1.40); POTASSIUM 4.3 mmol/L (3.5-5.1)
[2018-05-21] MEDS: INSULIN ASPART 100 UNITS/ML 3 ML PEN SC SCH (08:00)
[2018-05-21] MEDS: FLUTICASONE PROPIONATE NA SPR 16 GM BTL NAE SCH (08:35)
[2018-05-21] MEDS: PHENAZOPYRIDINE HCL 100 MG TAB PO PRN (08:35)
[2018-05-21] MEDS: TAMSULOSIN HCL 0.4 MG CAP PO SCH (08:35)
[2018-05-21 10:50] VITALS: BP 133/82; PULSE 58; TEMP 36.5; O2SAT 97
--- NOTE | 2018-05-21 10:56 | Discharge Summary ---
Discharge Summary Date of Service May 21, 2018. Discharge Summary Admission Date: May 19, 2018 at 08:52 Discharge Date: May 20, 2018 Discharge Disposition: Home Principal Diagnosis: Ureterolithiasis Problems/Secondary Diagnoses: Morbid obesity Meatal stenosis Nephrolithiasis Seasonal allergies T2DM Immunizations: Have You Had Influenza Vaccine: Yes History of Tetanus Vaccine?: Yes History of Pneumococcal: No History of Hepatitis B Vaccine: Yes Procedures: Cystoscopy, left semirigid ureteroscopy with basket stone extraction and ureteral stent placement, meatal dilation CT abd/pel CXR KUB Consultations: Urology Medication Reconciliation New Medications: Ciprofloxacin Hcl (Cipro) 500 Mg Tab 500 MG PO BID, #6 TAB Oxycodone/Acetaminophen 7.5MG/325MG (Percocet 7.5MG/325MG) Tab 1 TAB PO Q4 PRN for Pain, #20 TAB Phenazopyridine Hcl (Pyridium) 200 Mg Tab 200 MG PO TID PRN for Bladder pain, #30 TAB Potassium Citrate (Alkalinizer (Urocit-K 15) 15 Meq Tab 15 MEQ PO BID, #60 TAB 6 Refills Continued Medications: Acetaminophen (Tylenol) 500 Mg Tab 1000 MG PO TID PRN for Pain, TAB Fish Oil ([place]-3) 1 Ea Cap 1 CAP PO QPM, CAP Fluticasone Propionate (Nasal) (Flonase Allergy Relief) 50 Mcg/Act Spr 2 SPRAYS PHONG QAM Levocetirizine Dihydrochloride (Xyzal) 5 Mg Tab 5 MG PO QPM, TAB Metformin Hcl (Glucophage) 500 Mg Tab 500 MG PO BID, TAB Montelukast Sodium (Singulair) 10 Mg Tab 10 MG PO HS, TAB Venlafaxine Hcl (Effexor Xr) 150 Mg Cap 150 MG PO DAILY, CAP Discharge Exam Pt feeling much better, no flank pain, no N/V, no lightheadedness. Denies CP or SOB. Having some dysuria. Afebrile. Review of Systems: Constitutional: No fever, No chills, No sweats Eyes: No problem reported ENT: No problem reported Respiratory: No problem reported Cardiovascular: No problem reported Abdomen: No problem reported Musculoskeletal: No problem reported Genitourinary - Male: + dysuria Neurologic: No problem reported Psychiatric: No problem reported Endocrine: No problem reported Hematologic / Lymphatic: No problem reported Integumentary: No problem reported Physical Exam: General Appearance: WD/WN, no apparent distress, + obese Eyes: normal inspection, EOMI, sclerae normal ENT: hearing grossly normal Neck: trachea midline Respiratory/Chest: lungs clear, normal breath sounds, no respiratory distress, no accessory muscle use Cardiovascular: regular rate, rhythm, no edema, no gallop, no murmur Abdomen / GI: normal bowel sounds, non tender (and no CVA tenderness), soft Extremities: normal inspection, no calf tenderness Neurologic/Psychiatric: alert, normal mood/affect, oriented x 3 Skin: normal color, warm/dry, no rash Hospital Course This pt is a 43yo male with morbid obesity, prior kidney stone, allergies, and T2DM presenting with right flank pain & vomiting 2nd to an obstructing right- sided kidney stone. 1. right-sided kidney stone/right hydronephrosis - symptomatically he is feeling better. Now s/o cystoscopy, laser lithotripsy, and stent placement by Dr. Owens. Also had dilatation of meatal stenosis. Dysuria continunes which is expected -continue oxycodone prn, pyridium prn, Cipro x 3 days 2. question of UTI - urine culture and blood cultures are negative. Received rocephin. No evidence of UTI. treating empirically with Cipro anyway for stent placement 3. T2DM - opk to restart metformin on discharge, Controlled. 4. allergies - continue xyzal. Cont nasal steroid. 5. morbid obesity with BMI 41.5 6. emesis - resolved; has not recurred. Stable for dc to home today Total Time Spent: Greater than 30 minutes This includes examination of the patient, discharge planning, medication reconciliation, and communication with other providers. Discharge Instructions Please refer to the electronic Patient Visit Report (Discharge Instructions) for additional information. Follow-Up with PCP within 1-2 weeks With Urology in 1 week Additional Copies To Juanjose Owens MD, Urology; Chacorta Ulrich D.O.
[2018-05-21 11:10] VITALS: BP 128/90; PULSE 65; TEMP 37.1; O2SAT 99
== END 2018-05-21 11:51 | disposition home or self-care (01) | DRG 669 ==
LOC: C.EDB 05:31 → ENRESERV 08:44 → C.MSW 08:52 → EDBEDREQ 08:54
PROVIDERS: ADMIT Internal Medicine; ATTEND Family Medicine
PROC: 0TC78ZZ Extirpation of Matter from Left Ureter, Via Natural or Artificial Opening Endoscopic (ICD-10-PCS; principal; 2018-05-20 07:30)
PROC: 0T778DZ Dilation of Left Ureter with Intraluminal Device, Via Natural or Artificial Opening Endoscopic (ICD-10-PCS; principal; 2018-05-20 07:30)
DX: N20.1 Calculus of ureter (principal); E66.01 Morbid (severe) obesity due to excess calories; Z68.41 Body mass index [BMI] 40.0-44.9, adult; E11.9 Type 2 diabetes mellitus without complications; R11.10 Vomiting, unspecified; Z79.84 Long term (current) use of oral hypoglycemic drugs; Z79.899 Other long term (current) drug therapy; Z88.1 Allergy status to other antibiotic agents

== ENCOUNTER 2023-05-20 18:53 | Inpatient (IN) ==
[2023-05-20] MEDS ORDERED: ONDANSETRON INJ 2 MG/ML 2 ML VIAL IV STA (19:12)
[2023-05-20] MEDS ORDERED: HYDROmorphone INJ 0.5 MG/0.5 ML SYR IV STA (19:12)
[2023-05-20] MEDS ORDERED: SODIUM CHLORIDE 0.9% 1000ML 1,000 ML IV SCH (19:15)
[2023-05-20] MEDS ORDERED: fentaNYL citrate PF 100 MCG/2 ML VIAL IV STA ×2 (19:16→19:35)
[2023-05-20] MEDS ORDERED: LORazepam 2 MG/1 ML VIAL ONE (19:45)
[2023-05-20 20:15] LABS: Basophils # (auto) 0.04 K/uL (0-0.2); Basophils % (auto) 0.3 %; Eosinophils # (auto) 0.03 K/uL (0-0.50); Eosinophils % (auto) 0.2 %; Hematocrit (blood only) 45.5 % (42.0-52.0); Hemoglobin 14.7 g/dl (14.0-18.0); Immature Granulocytes # (auto) 0.09 K/uL (0.01-0.20); Immature Granulocytes % (auto) 0.7 %; Lymphocytes # (auto) 2.16 K/uL (1.2-3.4); Lymphocytes % (auto) 16.9 %; Mean Corpuscular Hemoglobin 28.7 pg (25.0-34.0); Mean Corpuscular Hgb Conc 32.3 g/dL (32.0-36.0); Mean Corpuscular Volume 88.9 fL (80.0-100.0); Mean Platelet Volume 10.2 fL (9.4-12.4); Monocytes # (auto) 0.52 K/uL (0.11-0.59); Monocytes % (auto) 4.1 %; Neutrophils # (auto) 9.92 K/uL (1.40-6.50); Neutrophils % (auto) 77.8 %; Platelet Count 254 K/uL (130-400); RDW Coefficient of Variation 14.2 % (11.5-14.5); RDW Standard Deviation 45.9 fL (36.4-46.3); Red Blood Count 5.12 M/uL (4.70-6.10); White Blood Count 12.76 K/ul (4.8-10.8)
[2023-05-20 20:30] LABS: Albumin Globulin Ratio 1.5 (0.9-2); Albumin Level 4.7 gm/dl (3.4-5.0); BUN Creatinine Ratio 8.5 (10-20); Bilirubin,Total 0.7 mg/dl (0.2-1.0); Calcium 10.4 mg/dl (8.6-10.3); Creatinine Clr Calc Pharmacy 67.8 ml/min; Est GFR (African American) 47.9 ml/min; Est GFR (Non-African American) 41.3 ml/min; Globulin 3.1 gm/dl (2.5-4.0); Total Protein 7.8 gm/dl (6.0-8.3)
[2023-05-20 20:41] LABS: Appearance Urine Turbid (Clear); Blood Urine Negative (Negative); Color Urine Dark Yellow; Epithelial Cell Urine Auto >30 /lpf (0-5); Glucose Urine UA Negative (Negative); Ketones Urine 1+ (Negative); Leukocyte Esterase Urine Negative (Negative); Nitrite Urine Negative (Negative); Protein Urine 2+ (Negative); Specific Gravity Urine 1.033 (1.000-1.030); Urobilinogen Urine Negative (Negative); pH Urine 5.5 (4.5-7.5)
[2023-05-20 20:42] LABS: Bilirubin Urine 1+ (Negative)
[2023-05-20 21:00] LABS: Bacteria Urine Automated 1+ (Negative); Calcium Oxalate Crystals Urine Present (None Prsent); Cast Urine Automated >30 /lpf (0-5); RBC Urine Automated 0-4 /hpf (0-4)
[2023-05-20] MEDS ORDERED: HYDROmorphone INJ 0.5 MG/0.5 ML SYR IV PRN (22:00)
[2023-05-21] MEDS ORDERED: ONDANSETRON INJ 2 MG/ML 2 ML VIAL IV PRN ×2 (00:36→10:37)
[2023-05-21] MEDS ORDERED: Nursing to Pharmacy Communication SCH (01:15)
[2023-05-21] MEDS: SODIUM CHLORIDE 0.9% 1000ML 1,000 ML IV SCH ×2 (01:17→12:01)
[2023-05-21] MEDS: FLUTICASONE PROPIONATE NA SPR 16 GM BTL NAE SCH ×3 (01:27→21:53)
[2023-05-21] MEDS: VENLAFAXINE HCL XR 150 MG CAPXR PO SCH ×2 (01:27→21:53)
[2023-05-21] MEDS: VENLAFAXINE HCL XR 75 MG CAPXR PO SCH ×2 (01:27→21:53)
[2023-05-21] MEDS: TAMSULOSIN HCL 0.4 MG CAP PO SCH ×4 (01:27→21:53)
--- NOTE | 2023-05-21 02:00 | Emergency Department Note ---
Impression & Plan Fracture dislocation of ankle joint ED Provider Note CHIEF COMPLAINT: Ankle pain HISTORY OF PRESENT ILLNESS: This 48-year-old male patient past medical history of obesity, urethral stricture, kidney stones, BPH presents to the emergency department with complaints of left ankle pain and deformity. He states he was weed whacking at an angle, standing on a hill when he slipped. He immediately felt his ankle and saw that it was in the "wrong direction." He states he called for help and bystanders summoned EMS. He does have a history of foot drop in this leg secondary to lumbar disc herniation years ago. He states he also suffers from diabetic neuropathy. REVIEW OF SYSTEMS: A review of systems was performed with positives and pertinent negatives listed in the history of present illness. 10 systems were reviewed and are otherwise negative. ALLERGIES: see below MEDICATIONS: see below PMH: see below SOCIAL HISTORY: see below DDx:Fracture, subluxation, dislocation, contusion, ligamentous injury, neurovascular, compartment syndrome, rhabdomyolysis, as well as other pa thologies. PHYSICAL EXAM: Vital signs reviewed. General: Well-appearing 48-year-old male, in significant discomfort. HEENT: No scleral icterus, PERRLA, neck supple. Atraumatic. Cardiovascular: Regular rate and rhythm, no extra sounds. Pulmonary: Clear to auscultation bilaterally, normal work of breathing. Abdomen: Soft, obese nontender, nondistended, positive bowel sounds. Musculoskeletal: Left ankle with significant deformity and lateral displacement of the foot with external rotation. Neurovascularly intact distally. Neurologic: Patient awake alert and oriented x 3, speech is clear Skin: Warm, dry, no rash EMERGENCY DEPARTMENT COURSE/MDM: This patient was evaluated and appeared to be in significant discomfort. Neurovascular exam of the left ankle fracture dislocation was intact. Ankle is felt to be in need of urgent reduction. Pt had a snack 2 hrs prior to arrival. He was given IV dilaudid 0.5 mg x1 for pain, zofran 4 mg IV. XR was obtained and reveals fx/dislocation of the ankle. Due to the severe deformity of the ankle, fentanyl 100mcg was repeated and the joint reduced, as below. He did require IV valium 5 mg prior to second attempt at adequate reduction. Case was reviewed with Dr. Shore of ortho who admitted the patient for definitive operative management. Pt was informed of the findings and plan. PROCEDURE:Anterior Shoulder Dislocation Reduction Indication: Left ankle fracture dislocation Verbal consent obtained. Risks and benefits were explained with the usual customary discussion. A time out was taken. Neurovascular examination before the procedure was intact. The L ankle fracture/dislocation was reduced by placing the patient supine with the left leg at a 90 degree angle and exaggerating the deformity traction on the foot, countertraction at the thigh was applied. This resulted in a near reduction without complication. Neurovascular examination after the procedure was intact however more complete reduction was desired. Patient was then given Ativan and Dr. Vásquez was called to assist in further reduction with success. The patient had significant pain relief and tolerated the procedure well. Please see Dr. Vásquez's notes for further details. MONITORING: An order for cardiac monitoring was placed and the patient is noted to be in a normal sinus rhythm at 81 beats per minute. RADIOLOGY: X-ray of the left ankle to my interpretation reveals evidence of trimalleolar fracture with lateral displacement of the foot and external rotation. Postreduction x-ray of the left ankle to my interpretation reveals better alignment of the fracture. EKG: To my interpretation reveals normal sinus rhythm at 93 bpm. Incomplete right bundle branch block, previous inferior infarct with Q waves noted. QTc is 469. When compared to previous dated May 19, 2018, inferior Q waves are now noted. T wave abnormality in the anterior leads is new. DISPOSITION: Admission Past Med/Surg History Medical History BPH with obstruction/lower urinary tract symptoms Depression Diabetes Kidney stones Recurrent nephrolithiasis Surgical History Previous back surgery 02/2010 Social History Smoking Status: Never smoker Hx Alcohol Use: No Hx Substance Use: No Preferred Language: Indonesian Communication Ability: Effective Lumber Checker Required: No Beliefs That Will Affect Care: Scientology Scientology Beliefs: Methedist Current Living Situation: Family Current Living Situation Comment: Lives at home with , 2 kids, and 2 puppies. Feels Safe at Home: Yes Assistive Devices: None Allergies Allergies Allergy/AdvReac Type Severity Reaction Status Date / Time dog dander Allergy Verified 06/02/22 15:39 house dust mite Allergy Verified 06/02/22 15:39 clarithromycin AdvReac Mild METALLIC Verified 06/02/22 15:39 TASTE IN MOUTH Home Meds Home Medications Medication Instructions Recorded Confirmed fluticasone propionate 50 1 sprays intranasal BID 11/14/19 05/20/23 mcg/actuation nasal spray,suspension (Flonase Allergy Relief) levocetirizine 5 mg tablet (Xyzal) 5 mg PO DAILY PRN Allergy Symptoms 11/14/19 05/20/23 montelukast 10 mg tablet 10 mg PO DAILY 11/14/19 05/20/23 (Singulair) metformin 500 mg tablet 100 mg PO AMPM 05/20/23 05/20/23 semaglutide 0.25 mg or 0.5 mg (2 0.25 - 0.5 mg subcut WK 05/20/23 05/20/23 mg/3 mL) subcutaneous pen injector (Ozempic) tamsulosin 0.4 mg capsule 0.4 mg PO AMHS 05/20/23 05/20/23 venlafaxine 150 mg tablet,extended 150 mg PO QAM 05/20/23 05/20/23 release 24 hr venlafaxine 75 mg capsule,extended 75 mg PO QAM 05/20/23 05/20/23 release 24 hr Previous Rx's Medication Instructions Recorded aspirin 81 mg tablet,delayed 81 mg PO BID 42 days #84 tabs 05/23/23 release oxycodone 5 mg tablet 5 mg PO Q4H PRN pain #30 tabs 05/23/23 Results & Data (ED) Vital Signs Vital Signs - 24 hr 05/20/23 19:01 05/20/23 19:30 05/20/23 19:45 Temperature 36.7 C Temperature Source Temporal Artery Scan Pulse Rate 114 H 78 97 H Pulse Rate from SpO2 Sensor Pulse Rhythm Regular Respiratory Rate 18 Respiratory Effort / Characteristics Non-Labored Spontaneous Respiratory Depth Normal Respiratory Pattern Regular Blood Pressure Blood Pressure Mean Pulse Oximetry 100 98 Oxygen Delivery Method Room Air Room Air Sepsis Recent Fever Within 48 Hours No Sepsis New/Unexplained Change in Mental Status No Sepsis Action Taken by Nursing No Action Required 05/20/23 19:36 05/20/23 19:40 05/20/23 19:50 Temperature Temperature Source Pulse Rate 101 H 94 H 103 H Pulse Rate from SpO2 Sensor 91 H 94 H 102 H Pulse Rhythm Respiratory Rate 18 23 21 Respiratory Effort / Characteristics Respiratory Depth Respiratory Pattern Blood Pressure Blood Pressure Mean Pulse Oximetry 96 93 95 Oxygen Delivery Method Sepsis Recent Fever Within 48 Hours Sepsis New/Unexplained Change in Mental Status Sepsis Action Taken by Nursing 05/20/23 20:00 05/20/23 20:00 05/20/23 20:10 Temperature Temperature Source Pulse Rate 105 H 102 H Pulse Rate from SpO2 Sensor 104 H 102 H Pulse Rhythm Respiratory Rate 22 30 H Respiratory Effort / Characteristics Respiratory Depth Respiratory Pattern Blood Pressure 153/104 H Blood Pressure Mean 109 Pulse Oximetry 94 96 Oxygen Delivery Method Sepsis Recent Fever Within 48 Hours Sepsis New/Unexplained Change in Mental Status Sepsis Action Taken by Nursing 05/20/23 20:20 05/20/23 20:30 05/20/23 20:30 Temperature Temperature Source Pulse Rate 94 H 94 H Pulse Rate from SpO2 Sensor 94 H 95 H Pulse Rhythm Respiratory Rate 21 24 Respiratory Effort / Characteristics Respiratory Depth Respiratory Pattern Blood Pressure 141/84 H Blood Pressure Mean 110 Pulse Oximetry 95 95 Oxygen Delivery Method Sepsis Recent Fever Within 48 Hours Sepsis New/Unexplained Change in Mental Status Sepsis Action Taken by Nursing 05/20/23 20:40 05/20/23 20:50 Temperature Temperature Source Pulse Rate 94 H 91 H Pulse Rate from SpO2 Sensor 94 H 94 H Pulse Rhythm Respiratory Rate 21 23 Respiratory Effort / Characteristics Respiratory Depth Respiratory Pattern Blood Pressure Blood Pressure Mean Pulse Oximetry 95 95 Oxygen Delivery Method Sepsis Recent Fever Within 48 Hours Sepsis New/Unexplained Change in Mental Status Sepsis Action Taken by Retirement Medications Current Medication List: was personally reviewed by me Laboratory Data Attestation: I reviewed the patient's lab results. 05/20/23 Unknown 05/20/23 Unknown Administered Medications Discontinued Medications Aspirin (Aspirin 81 Mg Ectab) 81 mg PO BID [facility] Stop: 06/21/23 08:59 Last Admin: 05/23/23 08:52 Dose: 81 mg Documented By: Admin: 05/22/23 20:01 Dose: 81 mg Documented By: Admin: 05/22/23 08:38 Dose: 81 mg Documented By: DEMETRI Diazepam (Diazepam 5 Mg/Ml Inj 10ml Vial) Confirm Administered Dose 50 mg .ROUTE .STK-MED ONE Stop: 05/20/23 19:46 Last Admin: 05/20/23 20:09 Dose: Not Given Documented By: DAYANA Fentanyl Citrate (Fentanyl Citrate Pf 100 Mcg/2 Ml Vial) 100 mcg IV NOW STA Stop: 05/20/23 19:17 Last Admin: 05/20/23 19:28 Dose: 100 mcg Documented By: DAYANA Fentanyl Citrate (Fentanyl Citrate Pf 100 Mcg/2 Ml Vial) 100 mcg IV NOW STA Stop: 05/20/23 19:36 Last Admin: 05/20/23 19:38 Dose: 100 mcg Documented By: DAYANA Fluticasone Propionate (Fluticasone Propionate Na Spr 16 Gm Btl) 1 sprays PHONG BID TERRIE Stop: 06/20/23 00:35 Last Admin: 05/23/23 08:52 Dose: 1 sprays Documented By: Admin: 05/22/23 20:01 Dose: 1 sprays Documented By: Admin: 05/22/23 08:39 Dose: 1 sprays Documented By: Admin: 05/21/23 21:53 Dose: 1 sprays Documented By: Admin: 05/21/23 10:17 Dose: Not Given Documented By: Admin: 05/21/23 01:27 Dose: 1 sprays Documented By: CHAIM Hydromorphone HCl (Hydromorphone Inj 0.5 Mg/0.5 Ml Syr) 0.5 mg IV NOW STA Stop: 05/20/23 19:13 Last Admin: 05/20/23 19:35 Dose: Not Given Documented By: DAYANA Hydromorphone HCl (Hydromorphone Inj 0.5 Mg/0.5 Ml Syr) 0.5 mg IV Q1H PRN PRN Reason: Pain Stop: 06/03/23 21:59 Last Admin: 05/20/23 22:03 Dose: 0.5 mg Documented By: DAYANA Hydromorphone HCl (Hydromorphone Inj 0.5 Mg/0.5 Ml Syr) 0.5 mg IV Q2H PRN PRN Reason: Pain Stop: 06/04/23 00:35 Last Admin: 05/22/23 17:52 Dose: 0.5 mg Documented By: Admin: 05/22/23 11:10 Dose: 0.5 mg Documented By: Admin: 05/22/23 08:38 Dose: 0.5 mg Documented By: Admin: 05/22/23 06:36 Dose: 0.5 mg Documented By: Admin: 05/22/23 04:30 Dose: 0.5 mg Documented By: Admin: 05/22/23 02:10 Dose: 0.5 mg Documented By: Admin: 05/21/23 23:55 Dose: 0.5 mg Documented By: Admin: 05/21/23 21:49 Dose: 0.5 mg Documented By: Admin: 05/21/23 19:42 Dose: 0.5 mg Documented By: Admin: 05/21/23 17:21 Dose: 0.5 mg Documented By: Admin: 05/21/23 08:33 Dose: 0.5 mg Documented By: IQRA Sodium Chloride (Nss 1000ml) 1,000 mls @ 999 mls/hr IV .Q1H1M TERRIE Stop: 05/20/23 20:15 Last Infusion: 05/20/23 20:38 Dose: 0 mls/hr Documented By: Admin: 05/20/23 19:30 Dose: 999 mls/hr Documented By: DAYANA Sodium Chloride (Nss 1000ml) 1,000 mls @ 80 mls/hr IV .[id number] TERRIE Stop: 06/20/23 00:35 Last Infusion: 05/21/23 17:16 Dose: 0 mls/hr Documented By: Admin: 05/21/23 12:01 Dose: 80 mls/hr Documented By: Infusion: 05/21/23 11:43 Dose: 0 mls/hr Documented By: Infusion: 05/21/23 07:20 Dose: 0 mls/hr Documented By: Admin: 05/21/23 01:17 Dose: 80 mls/hr Documented By: CHAIM Cefazolin Sodium (Ancef 3000mg) 72.5 mls @ 130 mls/hr IV PREOP TERRIE; Protocol Stop: 05/21/23 16:00 Last Admin: 05/21/23 11:44 Dose: Not Given Documented By: CELINE Lactated Ringer's (Lr) 500 mls @ 999 mls/hr IV .Q31M ONE Stop: 05/21/23 09:26 Last Infusion: 05/21/23 11:44 Dose: 0 mls/hr Documented By: Admin: 05/21/23 08:40 Dose: 999 mls/hr Documented By: IQRA Ceftriaxone Sodium 2,000 mg/ (Dextrose) 70 mls @ 100 mls/hr IV Q24H TERRIE; Protocol Stop: 05/26/23 14:14 Last Infusion: 05/22/23 14:13 Dose: 0 mls/hr Documented By: Admin: 05/22/23 13:07 Dose: 100 mls/hr Documented By: Infusion: 05/21/23 16:48 Dose: 0 mls/hr Documented By: Admin: 05/21/23 16:01 Dose: 100 mls/hr Documented By: CELINE Magnesium Sulfate/Dextrose (Magnesium Sulfate / D5w) 1 gm in 100 mls @ 50 mls/hr IV ONE ONE Stop: 05/22/23 09:59 Last Infusion: 05/22/23 10:54 Dose: 0 mls/hr Documented By: Admin: 05/22/23 08:38 Dose: 50 mls/hr Documented By: DEMETRI Insulin Aspart (Insulin Aspart Per Unit Charge) 0 units SC ACHS TERRIE Stop: 06/20/23 16:29 Last Admin: 05/23/23 08:47 Dose: 4 units Documented By: VITO Co-signed By: DEMETRI Admin: 05/22/23 20:41 Dose: Not Given Documented By: ARTIE Co-signed By: KIRIT Admin: 05/22/23 17:49 Dose: 3 units Documented By: DEMETRI Co-signed By: FELIPA Admin: 05/22/23 13:07 Dose: 5 units Documented By: DEMETRI Co-signed By: FELIPA Admin: 05/22/23 08:37 Dose: 5 units Documented By: DEMETRI Co-signed By: KRANTHI Admin: 05/21/23 20:42 Dose: Not Given Documented By: Admin: 05/21/23 18:22 Dose: Not Given Documented By: CELINE Insulin Glargine (Lantus Per Unit Charge) 5 units SQ BID TERRIE Stop: 06/20/23 20:59 Last Admin: 05/23/23 09:09 Dose: 5 units Documented By: VITO Co-signed By: MARTIN Admin: 05/22/23 20:41 Dose: 5 units Documented By: ARTIE Co-signed By: KIRIT Admin: 05/22/23 08:37 Dose: 5 units Documented By: DEMETRI Co-signed By: KRANTHI Admin: 05/21/23 20:46 Dose: 5 units Documented By: MUKUND Co-signed By: ALECIA Ketorolac Tromethamine (Ketorolac 30 Mg/Ml Vial) 30 mg IV Q8 TERRIE Stop: 05/27/23 13:59 Last Admin: 05/23/23 05:10 Dose: 30 mg Documented By: Admin: 05/22/23 21:37 Dose: 30 mg Documented By: Admin: 05/22/23 13:54 Dose: 30 mg Documented By: DEMETRI Lorazepam (Lorazepam 2 Mg/1 Ml Vial) Confirm Administered Dose 2 mg .ROUTE .STK-MED ONE Stop: 05/20/23 19:46 Last Admin: 05/20/23 19:50 Dose: 2 mg Documented By: DAYANA Montelukast Sodium (Montelukast Sodium 10 Mg Tablet) 10 mg PO DAILY TERRIE Stop: 06/20/23 08:59 Last Admin: 05/23/23 08:51 Dose: 10 mg Documented By: Admin: 05/22/23 08:38 Dose: 10 mg Documented By: Admin: 05/21/23 10:17 Dose: Not Given Documented By: CELINE Ondansetron HCl (Ondansetron Inj 2 Mg/Ml 2 Ml Vial) 4 mg IV NOW STA Stop: 05/20/23 19:13 Last Admin: 05/20/23 19:27 Dose: 4 mg Documented By: DAYANA Oxycodone HCl (Oxycodone Hcl Ir 5 Mg Tab (Immediate Release)) 5 mg PO Q4H PRN PRN Reason: Pain Stop: 06/04/23 11:41 Last Admin: 05/23/23 10:49 Dose: 5 mg Documented By: Admin: 05/22/23 10:12 Dose: 5 mg Documented By: Admin: 05/22/23 00:49 Dose: 5 mg Documented By: Admin: 05/21/23 20:46 Dose: 5 mg Documented By: Admin: 05/21/23 15:57 Dose: 5 mg Documented By: CELINE Tamsulosin HCl (Tamsulosin Hcl 0.4 Mg Cap) 0.4 mg PO AMHS TERRIE Stop: 06/20/23 00:35 Last Admin: 05/23/23 08:51 Dose: 0.4 mg Documented By: Admin: 05/22/23 20:01 Dose: 0.4 mg Documented By: Admin: 05/22/23 08:39 Dose: 0.4 mg Documented By: Admin: 05/21/23 21:53 Dose: 0.4 mg Documented By: Admin: 05/21/23 14:12 Dose: 0.4 mg Documented By: Admin: 05/21/23 01:27 Dose: 0.4 mg Documented By: CHAIM Venlafaxine HCl (Venlafaxine Hcl Xr 75 Mg Capxr) 75 mg PO HS TERRIE Stop: 06/20/23 01:14 Last Admin: 05/22/23 20:00 Dose: 75 mg Documented By: Admin: 05/21/23 21:53 Dose: 75 mg Documented By: Admin: 05/21/23 01:27 Dose: 75 mg Documented By: CHAIM Venlafaxine HCl (Venlafaxine Hcl Xr 150 Mg Capxr) 150 mg PO HS TERRIE Stop: 06/20/23 01:14 Last Admin: 05/22/23 20:01 Dose: 150 mg Documented By: Admin: 05/21/23 21:53 Dose: 150 mg Documented By: Admin: 05/21/23 01:27 Dose: 150 mg Documented By: CHAIM Imaging Data Radiologist's Impression: Ankle X-Ray 05/20/23 19:05 LEFT ANKLE 3 VIEWS CLINICAL HISTORY: Left ankle trauma. FINDINGS: 3 portable views of the left ankle are obtained. No prior studies are available for comparison at the time of dictation. The skeletal structures are well mineralized. There is a displaced horizontal fracture of the distal fibula. There is lateral displacement of the distal fragment by approximately 2 cm, as well as approximately 3.5 cm of overriding of fragments. There is also a large dorsally displaced bone fragment, likely from the posterior malleolus of the tibia. There is dislocation of the ankle joint, with lateral displacement of the talus, which is angulated and overrides the distal tibia. An os trigonum is incidentally noted. There is a joint effusion. Significant soft tissue swelling is seen around the ankle. IMPRESSION: Fracture/dislocation of the left ankle joint as above. Electronically signed by: Coleman Isabel M.D. 05/21/2023 7:02 AM Tibia/Fibula X-Ray 05/20/23 19:05 XR tibia fibula LT 2V CLINICAL HISTORY: Lower leg trauma COMPARISON STUDY: Left ankle 05/20/2023. FINDINGS: Overlying splint material obscures fine bony detail. No significantly change in the left ankle fracture/dislocation which is better appreciated on the prior ankle radiograph. The proximal tibia and proximal fibula appear intact. No knee effusion. Fractures appear to involve the lateral and posterior malleoli. IMPRESSION: 1. No change in the left ankle fracture/dislocation. 2. The proximal tibia and fibula appear intact. ACT 112: Negative or not required by law. Electronically signed by: Carlos Alcantara M.D. 05/21/2023 8:03 AM Chest X-Ray 05/20/23 19:12 SINGLE VIEW CHEST CLINICAL HISTORY: Preoperative examination FINDINGS: An AP, portable, upright chest radiograph is compared to study dated 05/19/2018. The cardiomediastinal silhouette is unremarkable. There is mild elevation of right hemidiaphragm. The lungs and pleural spaces are clear. No pneumothorax is seen. The bony thorax is grossly intact. IMPRESSION: No active disease in the chest. ACT 112: Negative or not required by law. Electronically signed by: Coleman Isabel M.D. 05/21/2023 7:10 AM Ankle X-Ray 05/20/23 19:48 LEFT ANKLE 3 VIEWS CLINICAL HISTORY: Postreduction examination. FINDINGS: 3 portable views of the left ankle are compared to study performed earlier the same day 05/20/2023. The examination is performed through cast, obscuring fine bony detail. There is improved alignment status post closed reduction. Again seen is an oblique fracture of the distal fibular shaft. There is persistent lateral displacement of the distal fragment by one shaft length with mild overriding of fragments and angulation at the fracture site. There is a fracture of the posterior malleolus of the tibia with displaced fragments. There is persistent ankle joint dislocation. There is lateral displacement of the talus by approximately 1.5 cm, and dorsal displacement of the talus by approximately 2.5 cm. There is a joint effusion. Surrounding soft tissue edema is noted. IMPRESSION: Fracture/dislocation of the left ankle joint as above with improved alignment status post closed reduction. Electronically signed by: Coleman Isabel M.D. 05/21/2023 8:01 AM Discharge Plan Visit Data Chief Complaint: Ankle Pain Stated Complaint: ANKLE PAIN ED Provider: Linsey,Sammi B Discharge Problem: Fracture dislocation of ankle joint Patient Disposition: Admitted As Inpatient Discharge Instructions Interventions: ED Discharge Assessment Last Done: 05/20/23 23:56
--- NOTE | 2023-05-21 07:03 | XRay Report ---
LEFT ANKLE 3 VIEWS CLINICAL HISTORY: Left ankle trauma. FINDINGS: 3 portable views of the left ankle are obtained. No prior studies are available for compari son at the time of dictation. The skeletal structures are well mineralized. There is a displaced hori zontal fracture of the distal fibula. There is lateral displacement of the distal fragment by approxi mately 2 cm, as well as approximately 3.5 cm of overriding of fragments. There is also a large dorsal ly displaced bone fragment, likely from the posterior malleolus of the tibia. There is dislocation of the ankle joint, with lateral displacement of the talus, which is angulated and overrides the distal tibia. An os trigonum is incidentally noted. There is a joint effusion. Significant soft tissue swel ling is seen around the ankle. IMPRESSION: Fracture/dislocation of the left ankle joint as above. Electronically signed by: Coleman Isabel M.D. 05/21/2023 7:02 AM
--- NOTE | 2023-05-21 07:11 | XRay Report ---
SINGLE VIEW CHEST CLINICAL HISTORY: Preoperative examination FINDINGS: An AP, portable, upright chest radiograph is compared to study dated 05/19/2018. The cardiom ediastinal silhouette is unremarkable. There is mild elevation of right hemidiaphragm. The lungs and pleural spaces are clear. No pneumothorax is seen. The bony thorax is grossly intact. IMPRESSION: No active disease in the chest. ACT 112: Negative or not required by law. Electronically signed by: Coleman Isabel M.D. 05/21/2023 7:10 AM
--- NOTE | 2023-05-21 07:22 | Anesthesiology Consultation ---
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 History Surgery Operation Date: 05/21/23 10:20 Proposed Procedures p Left Open Reduction Internal Fixation Sally - Roger Shore DO Height/Weight Height: 6 ft Weight: 133 kg Allergies Allergy/AdvReac Type Severity Reaction Status Date / Time dog dander Allergy Verified 06/02/22 15:39 house dust mite Allergy Verified 06/02/22 15:39 clarithromycin AdvReac Mild METALLIC Verified 06/02/22 15:39 TASTE IN MOUTH Medications Home Medications Medication Instructions Recorded Confirmed Last Taken fluticasone propionate 50 1 sprays intranasal BID 11/14/19 05/20/23 Unknown mcg/actuation nasal spray,suspension (Flonase Allergy Relief) levocetirizine 5 mg tablet (Xyzal) 5 mg PO DAILY PRN Allergy Symptoms 11/14/19 05/20/23 Unknown montelukast 10 mg tablet 10 mg PO DAILY 11/14/19 05/20/23 Unknown (Singulair) metformin 500 mg tablet 100 mg PO AMPM 05/20/23 05/20/23 Unknown semaglutide 0.25 mg or 0.5 mg (2 0.25 - 0.5 mg subcut WK 05/20/23 05/20/23 Unknown mg/3 mL) subcutaneous pen injector (Ozempic) tamsulosin 0.4 mg capsule 0.4 mg PO AMHS 05/20/23 05/20/23 Unknown venlafaxine 150 mg tablet,extended 150 mg PO QAM 05/20/23 05/20/23 Unknown release 24 hr venlafaxine 75 mg capsule,extended 75 mg PO QAM 05/20/23 05/20/23 Unknown release 24 hr Active Medications Generic Name Dose Route Start Last Admin Trade Name Freq PRN Reason Stop Dose Admin Fluticasone Propionate 1 sprays 05/21/23 00:36 05/21/23 01:27 Fluticasone Propionate Na Spr 16 Gm Btl PHONG 06/20/23 00:35 1 sprays BID TERRIE Administration Sodium Chloride 1,000 mls @ 80 mls/hr 05/21/23 00:36 05/21/23 01:17 Nss 1000ml IV 06/20/23 00:35 80 mls/hr .[id number] TERRIE Administration Tamsulosin HCl 0.4 mg 05/21/23 00:36 05/21/23 01:27 Tamsulosin Hcl 0.4 Mg Cap PO 06/20/23 00:35 0.4 mg AMHS TERRIE Administration Venlafaxine HCl 75 mg 05/21/23 01:15 05/21/23 01:27 Venlafaxine Hcl Xr 75 Mg Capxr PO 06/20/23 01:14 75 mg HS TERRIE Administration Venlafaxine HCl 150 mg 05/21/23 01:15 05/21/23 01:27 Venlafaxine Hcl Xr 150 Mg Capxr PO 06/20/23 01:14 150 mg HS TERRIE Administration Past Medical History Medical History BPH with obstruction/lower urinary tract symptoms Depression Diabetes Kidney stones Recurrent nephrolithiasis Past Surgical History Surgical History Previous back surgery 02/2010 Social History Smoking Status: Never smoker Hx Alcohol Use: No Hx Substance Use: No Physical Exam Vital Signs Last Vital Signs Temp 98.2 F 05/21/23 02:03 Pulse 85 05/21/23 02:03 Resp 16 05/21/23 02:03 BP 157/98 H 05/21/23 02:03 Pulse Ox 97 05/21/23 02:03 O2 Del Method Room Air 05/21/23 02:03 Testing Laboratory Results 05/20/23 Unknown 05/20/23 Unknown Urine Color Dark Yellow 05/20/23 Unknown Urine Appearance Turbid (Clear) A 05/20/23 Unknown Urine pH 5.5 (4.5-7.5) 05/20/23 Unknown Ur Specific [place] 1.033 (1.000-1.030) H 05/20/23 Unknown Urine Protein 2+ (Negative) H 05/20/23 Unknown Urine Glucose (UA) Negative (Negative) 05/20/23 Unknown Urine Ketones 1+ (Negative) H 05/20/23 Unknown Urine Nitrite Negative (Negative) 05/20/23 Unknown Ur Leukocyte Esterase Negative (Negative) 05/20/23 Unknown Urine WBC (Auto) 5-10 /hpf (0-5) H 05/20/23 Unknown Urine RBC (Auto) 0-4 /hpf (0-4) 05/20/23 Unknown U Hyaline Cast (Auto) >30 /lpf (0-5) H 05/20/23 Unknown U Epithel Cells (Auto) >30 /lpf (0-5) H 05/20/23 Unknown Urine Bacteria (Auto) 1+ (Negative) H 05/20/23 Unknown Electrocardiogram Date: 05/20/23 Poor data quality, interpretation may be adversely affected Normal sinus rhythm, rate 95 bpm Incomplete right bundle branch block Inferior infarct , age undetermined Abnormal ECG When compared with ECG of 19-MAY-2018 14:50, Inferior infarct is now Present Nonspecific T wave abnormality now evident in Anterior leads Chest X-Ray Date: 05/21/23 Findings: + NAD
--- NOTE | 2023-05-21 08:02 | XRay Report ---
LEFT ANKLE 3 VIEWS CLINICAL HISTORY: Postreduction examination. FINDINGS: 3 portable views of the left ankle are compared to study performed earlier the same day 04/25. The examination is performed through cast, obscuring fine bony detail. There is improved alig nment status post closed reduction. Again seen is an oblique fracture of the distal fibular shaft. Th ere is persistent lateral displacement of the distal fragment by one shaft length with mild overridin g of fragments and angulation at the fracture site. There is a fracture of the posterior malleolus of the tibia with displaced fragments. There is persistent ankle joint dislocation. There is lateral di splacement of the talus by approximately 1.5 cm, and dorsal displacement of the talus by approximatel y 2.5 cm. There is a joint effusion. Surrounding soft tissue edema is noted. IMPRESSION: Fracture/dislocation of the left ankle joint as above with improved alignment status post closed reduction. Electronically signed by: Coleman Isabel M.D. 05/21/2023 8:01 AM
--- NOTE | 2023-05-21 08:04 | XRay Report ---
XR tibia fibula LT 2V CLINICAL HISTORY: Lower leg trauma COMPARISON STUDY: Left ankle 05/20/2023. FINDINGS: Overlying splint material obscures fine bony detail. No significantly change in the left an kle fracture/dislocation which is better appreciated on the prior ankle radiograph. The proximal tibi a and proximal fibula appear intact. No knee effusion. Fractures appear to involve the lateral and po sterior malleoli. IMPRESSION: 1. No change in the left ankle fracture/dislocation. 2. The proximal tibia and fibula appear intact. ACT 112: Negative or not required by law. Electronically signed by: Carlos Alcantara M.D. 05/21/2023 8:03 AM
[2023-05-21] MEDS ORDERED: fentaNYL citrate PF 100 MCG/2 ML VIAL ONE (08:17)
[2023-05-21] MEDS ORDERED: MIDAZOLAM HCL 1 MG/ML 2ML VIAL ONE ×2 (08:17→09:26)
--- NOTE | 2023-05-21 08:23 | History & Physical Report ---
Date of Service May 21, 2023 Assessment & Plan (1) Closed left ankle fracture: I discussed diagnosis and treatment options to him and his at bedside. I recommended open reduction internal fixation of his left ankle would like to proceed. I told him there is a small chance we may need to do an external fixator depending on soft tissues. He understands the risk benefits alternatives procedure elected proceed. Questions answered at bedside and consents were signed. Time was spent scribing the procedure and postop expectations. He is currently n.p.o. and we plan to do the procedure later today. History of Present Illness Chief Complaint: Left ankle fracture dislocation. Primary Care Provider: Chacorta Ulrich DO Luis Armando is a pleasant 48-year-old male who is out doing yard work yesterday when he slipped on a downslope. He twisted his left ankle severely. He came to the emergency room where radiographs demonstrated a lateral dislocation of the ankle with a syndesmotic injury and a fibular fracture. He was admitted to the orthopedic service for definitive treatment. Allergies Allergy/AdvReac Type Severity Reaction Status Date / Time dog dander Allergy Verified 06/02/22 15:39 house dust mite Allergy Verified 06/02/22 15:39 clarithromycin AdvReac Mild METALLIC Verified 06/02/22 15:39 TASTE IN MOUTH Home Medications Medication Instructions Recorded Confirmed Type fluticasone propionate 50 1 sprays intranasal BID 11/14/19 05/20/23 History mcg/actuation nasal spray,suspension (Flonase Allergy Relief) levocetirizine 5 mg tablet (Xyzal) 5 mg PO DAILY PRN Allergy Symptoms 11/14/19 05/20/23 History montelukast 10 mg tablet 10 mg PO DAILY 11/14/19 05/20/23 History (Singulair) metformin 500 mg tablet 100 mg PO AMPM 05/20/23 05/20/23 History semaglutide 0.25 mg or 0.5 mg (2 0.25 - 0.5 mg subcut WK 05/20/23 05/20/23 History mg/3 mL) subcutaneous pen injector (Ozempic) tamsulosin 0.4 mg capsule 0.4 mg PO AMHS 05/20/23 05/20/23 History venlafaxine 150 mg tablet,extended 150 mg PO QAM 05/20/23 05/20/23 History release 24 hr venlafaxine 75 mg capsule,extended 75 mg PO QAM 05/20/23 05/20/23 History release 24 hr Past Med/Surg History Medical History BPH with obstruction/lower urinary tract symptoms Depression Diabetes Kidney stones Recurrent nephrolithiasis Surgical History Previous back surgery 02/2010 Social History Smoking Status: Never smoker Hx Alcohol Use: No Hx Substance Use: No Preferred Language: Chinese Communication Ability: Effective 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 Other Information That Helps Us Care for You: No Feels Safe at Home: Yes Safety Concerns: Feels Safe At This Time Review of Systems All systems reviewed & are unremarkable except as noted in HPI & below. Physical Exam On physical examination of the left ankle, he has a trauma splint when I saw him. He can move his toes some. 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 Constitutional WD/WN, vitals as above Eyes PERRL, conjunctivae normal, anicteric sclerae ENMT external ear and nose normal, oropharynx normal Neck trachea midline, no thyromegaly Respiratory normal respiratory effort, lungs clear to auscultation Cardiovascular RRR, no murmur, no edema Gastrointestinal (Abdomen) normal bowel sounds, soft, nontender, no hepatosplenomegaly Skin no rashes, warm and dry Psychiatric A+Ox3, euthymic affect Results & Data Results & Data Laboratory Results . Diagnostic Findings X-rays of the left ankle show a lateral fracture dislocation with a short oblique fracture of the fibular shaft and a complete disruption of the syndesmosis.. PG Care Time/CCT Total # of Minutes Spent Total Time Spent with Patient: Total time spent is greater than 50% in coordination of care (as documented) at patient's floor/unit and/or counseling patient: Coding Level of Care Code 82769 INT INP/OBS CARE MIN Diagnoses Closed left ankle fracture S82.892A
[2023-05-21] MEDS ORDERED: BUPIVACAINE 0.5 % 5 MG/1 ML PF 10ML VIAL ONE (08:32)
[2023-05-21] MEDS: HYDROmorphone INJ 0.5 MG/0.5 ML SYR IV PRN ×5 (08:33→23:55)
[2023-05-21] MEDS ORDERED: DexMEDEtomidine HCL IV 100 MCG/ML VIAL IV ONE (08:55)
[2023-05-21] MEDS ORDERED: LACTATED RINGER'S 500 ML IV ONE (08:56)
[2023-05-21] MEDS ORDERED: VENLAFAXINE HCL XR 150 MG CAPXR PO SCH (09:00)
[2023-05-21] MEDS ORDERED: VENLAFAXINE HCL XR 75 MG CAPXR PO SCH (09:00)
[2023-05-21] MEDS ORDERED: KETAMINE 50 MG/5 ML SYRINGE ONE (09:22)
[2023-05-21] MEDS ORDERED: LIDOCAINE 2% 2 ML VIAL/AMP(20MG/ML) INFIL ONE (09:41)
[2023-05-21] MEDS ORDERED: ONDANSETRON INJ 2 MG/ML 2 ML VIAL ONE (09:41)
[2023-05-21] MEDS ORDERED: PROPOFOL IV EMULSION 10 MG/ML 20 ML VIAL IV ONE (09:41)
[2023-05-21] MEDS ORDERED: ePHEDrine sulfate 50 MG/ML SYR ONE (09:57)
[2023-05-21] MEDS: MONTELUKAST SODIUM 10 MG TABLET PO SCH (10:17)
--- NOTE | 2023-05-21 10:32 | Operative Report ---
PG Post Operative Report Pre & Post Diagnosis Operation Date: 05/21/23 10:20 Pre-Op Diagnosis: Fracture dislocation of the left ankle Post-Op Diagnosis: Fracture dislocation of the left ankle I identified the patient and participated in the time-out.: Yes Procedure Operation Date: 05/21/23 10:20 Actual Procedures p Left Open Reduction Internal Fixation Ankle with syndesmotic fixation (Left) - Roger Shore DO Surgeon Roger Shore DO Utility Sales Representative Roger Rai PA-C Estimated Blood Loss 10 Findings Consistent with Post-Op Diagnosis Specimens None Description of Procedure On May 21, 2023 Luis Armando was brought down from his hospital room to the preoperative holding area. The operative extremity identified and signed. Is given a preoperative antibiotic and a spinal anesthetic. He is taken back to the operating room and laid on the table in supine position. He was brought under basic sedation. The left ankle was prepped and draped in sterile fashion. A timeout was done. The patient and the operative extremity was properly identified. A longitudinal incision was made over the fibula. Dissection was taken down through the fascia with care not to disrupt the intermediate branch of the peroneal nerve. The fracture was easily identified. The fracture was then reduced. An Arthrex 8 hole distal fibular locking plate was then placed. Clamps were placed around the plate. Fluoroscopic images showed anatomic alignment of the ankle and the hardware. A locking screw was placed both distally and proximally. All clamps were then removed. Fluoroscopic images showed excellent alignment of the fracture. Additional locking screws were placed both proximally and distally. An Arthrex tight rope syndesmotic button was then placed through the medial cortex and tensioned on the lateral side. The tails were then cut. Final fluoroscopic images showed anatomic taoist of the ankle mortise. There was no syndesmotic separation on stress views. The wound was then irrigated. The deep fascial layer was closed with #0 Vicryl. Skin was closed with 2-0 Vicryl and gadiel. He was then placed in a trauma splint. He was then taken to the postanesthesia care unit in stable condition. He tolerated the procedure well. Roger Rai PA-C, was present for the entire procedure. He was critical for patient positioning, prepping, draping, retraction exposure, wound closure and application of sterile dressing. I attest to the content of the Intraoperative Record and any orders documented therein. Any exceptions are noted below.
--- NOTE | 2023-05-21 10:36 | Electrocardiogram Report ---
Test Reason : Blood Pressure : / mmHG Vent. Rate : 095 BPM Atrial Rate : 095 BPM P-R Int : 132 ms QRS Dur : 096 ms QT Int : 374 ms P-R-T Axes : 045 -05 024 degrees QTc Int : 469 ms Poor data quality, interpretation may be adversely affected Normal sinus rhythm Incomplete right bundle branch block Abnormal ECG When compared with ECG of 19-MAY-2018 14:50, No significant change Confirmed by Kosta Zapien ([id number]) on 05/21/2023 10:36:19 AM Referred By: REFERRED SELF Confirmed By:Kosta Zapien
[2023-05-21] MEDS ORDERED: ePHEDrine sulfate 50 MG/ML AMP IV PRN (10:37)
[2023-05-21] MEDS ORDERED: fentaNYL citrate PF 100 MCG/2 ML VIAL IV PRN (10:37)
[2023-05-21] MEDS ORDERED: ATROPINE SULFATE 0.1 MG/ML 10ML SYR IV PRN (10:37)
--- NOTE | 2023-05-21 11:06 | Fluoroscopy Report ---
INTRAOPERATIVE RADIOGRAPHS CLINICAL HISTORY: Open reduction and internal fixation of the left ankle. Fluoro time: 38 seconds. Ka,r: 1.04 mGy FINDINGS: 3 spot fluoroscopic views of the left ankle are correlated with radiograph performed 023. There has been buttress plate fixation of a distal fibular fracture with quaker of near-angela tomic alignment at the fracture site and the ankle joint. An additional small plate is seen along the medial cortex of the distal tibia. There is a posterior tibial placenta fracture. Overlying soft tis brigid edema is noted. IMPRESSION: Intraoperative images from open reduction and internal fixation of an ankle fracture/disl ocation as above. Electronically signed by: Coleman Isabel M.D. 05/21/2023 11:05 AM
--- NOTE | 2023-05-21 12:24 | Anesthesiology Progress Note ---
Date of Service May 21, 2023 Anesthesia Post Procedure Vital Signs Vital Signs: Temp Pulse Pulse Pulse Pulse Resp BP 05/21/23 12:10 97.9 F 75 16 05/21/23 11:40 98.6 F 74 16 05/21/23 11:20 75 16 05/21/23 11:10 97.9 F 83 20 05/21/23 11:00 83 22 05/21/23 10:52 97.3 F L 85 16 05/21/23 07:45 98.6 F 88 18 05/21/23 02:03 98.2 F 85 16 05/20/23 23:40 76 16 05/20/23 23:30 79 26 H 05/20/23 23:30 142/90 H 05/20/23 23:20 79 14 05/20/23 23:10 78 17 05/20/23 23:00 82 21 05/20/23 23:00 143/90 H 05/20/23 22:50 88 18 05/20/23 22:40 81 16 05/20/23 22:30 85 17 05/20/23 22:30 123/85 05/20/23 22:20 87 21 05/20/23 22:10 93 H 22 05/20/23 22:00 82 15 05/20/23 22:00 131/97 05/20/23 21:50 85 20 05/20/23 21:40 92 H 16 05/20/23 21:30 84 21 05/20/23 21:30 135/88 05/20/23 21:20 88 21 05/20/23 21:10 92 H 18 05/20/23 21:00 90 22 05/20/23 21:00 134/80 05/20/23 20:50 91 H 23 05/20/23 20:40 94 H 21 05/20/23 20:30 94 H 24 05/20/23 20:30 141/84 H 05/20/23 20:20 94 H 21 05/20/23 20:10 102 H 30 H 05/20/23 20:00 105 H 22 05/20/23 20:00 153/104 H 05/20/23 19:50 103 H 21 05/20/23 19:40 94 H 23 05/20/23 19:36 101 H 18 05/20/23 23:56 81 18 142/90 H 07/27/23 21:49 85 19 05/20/23 19:45 97 H 05/20/23 19:30 78 05/20/23 19:01 98.1 F 114 H 18 BP Pulse Ox O2 Del Method O2 Flow Rate 05/21/23 12:10 145/79 H 96 Room Air 05/21/23 11:40 137/88 97 Room Air 05/21/23 11:20 113/78 98 Room Air 05/21/23 11:10 126/72 95 Room Air 05/21/23 11:00 127/76 94 Room Air 05/21/23 10:52 120/69 100 Oxymask 6 05/21/23 07:45 155/96 H 96 Room Air 05/21/23 02:03 157/98 H 97 Room Air 05/20/23 23:40 98 05/20/23 23:30 99 05/20/23 23:30 05/20/23 23:20 99 05/20/23 23:10 97 05/20/23 23:00 100 05/20/23 23:00 05/20/23 22:50 76 L 05/20/23 22:40 97 05/20/23 22:30 98 05/20/23 22:30 05/20/23 22:20 95 05/20/23 22:10 97 05/20/23 22:00 98 05/20/23 22:00 05/20/23 21:50 96 05/20/23 21:40 97 05/20/23 21:30 96 05/20/23 21:30 05/20/23 21:20 95 05/20/23 21:10 95 05/20/23 21:00 95 05/20/23 21:00 05/20/23 20:50 95 05/20/23 20:40 95 05/20/23 20:30 95 05/20/23 20:30 05/20/23 20:20 95 05/20/23 20:10 96 05/20/23 20:00 94 05/20/23 20:00 05/20/23 19:50 95 05/20/23 19:40 93 05/20/23 19:36 96 05/20/23 23:56 100 Room Air 05/20/23 21:49 135/88 97 Room Air 05/20/23 19:45 05/20/23 19:30 98 Room Air 05/20/23 19:01 100 Room Air Pain Intensity Left Ankle: Pain Intensity: 2 Transfer of Care Handoff Completed per policy Notes Mental Status: alert / awake / arousable and participated in evaluation Patient Amnestic to Procedure: Yes Nausea / Vomiting: adequately controlled Pain: adequately controlled Airway Patency, RR, SpO2: stable & adequate BP & HR: stable & adequate Hydration State: stable & adequate Neuraxial Anesthesia: was administered and sensory block is resolving Anesthetic Complications: no major complications apparent and Pt Satisfied with anesthetic care
--- NOTE | 2023-05-21 13:32 | Hospitalist Consultation ---
Date of Consultation May 21, 2023 Assessment & Plan (1) Frequent PVCs: -Currently stable and asymptomatic -We were consulted to follow the patient while admitted for management of his chronic medical conditions and frequent PVC's during his operation this am -The patient denies any chest pain, heart palpitations, or recent SOB -ECG today shows NSR with frequent PVC's incomplete RBBB -Obtain STAT repeat CBC, CMP, and mag -No need to monitor on telemetry at this time -Will correct any electrolyte abnormalities on repeat labs -Can follow up with his PCP and Cardiology outpatient as needed -Thank you for allowing us to participate in the care of this patient, reach out with any questions or concerns -Medicine will continue to follow (2) UTI (urinary tract infection): -Patient has noted dysuria over the past 48-72 hours -Given symptoms and UA yesterday concerning for possible infection will start the patient on Ceftriaxone for now -Urine culture from yesterday is in process, continue to follow -No recent fevers, will monitor repeat CBC for leukocytosis -For now will hold blood cultures as he is stable and non-toxic (3) REMI (acute kidney injury): -Patient cr yesterday was 1.88, baseline appears near 1.0 -Will follow up on repeat CMP and bladder scan -Currently on 80 mL/hr NSS at this time, will continue and adjust fluids as needed based on repeat labs -If REMI is persistent today will obtain BL renal US for further evaluation -Monitor daily renal function ordered at the time of this consult (4) Status post ORIF of fracture of ankle: -Pain control, perioperative abx, and DVT PPX per the primary team -No reported intraoperative complications -Rest of care per the primary team (5) DMII (diabetes mellitus, type 2): -Hold metformin and Ozempic -Monitor BSG ACHS, goal is 110-160 -Will start basal insulin of 5 units lantus BID for now -CF of 50 and CR of 15 ACHS -DMII diet -Adjust regimen as needed (6) BPH with obstruction/lower urinary tract symptoms: -Restarting flomax -Having his nurse obtain bladder scan as he has not yet urinated since his procedure -PRN straight cath orders for PVR equal to or greater than 300 cc Plan The patient was discussed with Dr. Camejo at the time of the consult Supervising Physician Co-Signing Physician Notes I personally saw and examined the patient. I verified all claire points and agree with Phan Dugna PA-C with the following exceptions and/or additions: 48 year old POD#0 Left Open Reduction Internal Fixation Ankle with syndesmotic fixation. EBL 10ml. reports dysuria for the last 5 days. No chest pain or shortness of breath on exertion normally. No palpitations. O/E A&Ox3, HS RRR, no murmurs, Chest CTAB, Abdo mild suprapubic tenderness A/P VTE/Pain/bowel management per primary orthopedic team Frequent PVCs - suspect due to stress of operation, no concern for ischemic heart disease prior to this, no specific treatment required, HR currently appears regular with listening for 60 seconds therefore suspect this has already resolved, certainly bigeminy or significant PVC burden a concern UTI - dysuria, follow up urine culture, ceftriaxone IV History of Present Illness Reason for Consultation: post-operative arrhythmias Requesting Physician: Roger Shore DO Attending Physician: Dr. Kamar Camejo History of Present Illness Luis Armando is a 48 year old male with a PMH significant for DMII, kidney stone disease, BPH, and anxiety who initially presented to the [facility] ED on 05/21 via EMS due to left ankle pain and dislocation after slipping while doing yard work outside. The patient was admitted to the orthopedic service yesterday and u nderwent Open Reduction Internal Fixation of the left Ankle with syndesmotic fixation with Dr. Shore this am. We received a routine consult for "post operative arrhythmias" without further information give. I spoke with the patient's nurse on the Orthopedic floor who was never given sign out regarding arrhythmias or the need for a consult. After discussions with the Orthopedic team we were told that Anesthesia was requesting a medicine consult. Per the operative report, EBL was listed as 10 cc and there were no intraoperative complications listed. Review of the patient's labs from 05/20 re veal a leukocytosis of 12 with left shift of 9.9, cr of 1.88 (baseline is 1.0), AG of 14 with Bicarb of 23, and turbid urine with 2+ protein, 1+ ketones, 5-10 WBC, > 30 hyaline casts and epithelial cells, 1+ bacteria, and calcium oxilate crystal present. After discussions with the Anesthesia team they explained that the patient had an some PVC's and incomplete RBBB on ECG yesterday and had frequent PVC's during the procedure. They wanted the medicine service to follow while admitted due to his hx of DMII and frequent PVC's. At the time of the exam the patient was sitting in bed in no acute distress with is sitting bedside, history was obtained from both. He states that he is feeling well after his procedure, he is without pain and is slowly regaining sensation in his LE's. He denies any recent chest discomfort or pulmonary symptoms. He denies recent increases in CHAVEZ while walking up steps or doing his typical yard work. He denies recent fever, chills, cough, abd pain, nausea, vo miting, diarrhea, melena. When asked about urinary symptoms he states that he has been experiencing dysuria over the past 2-3 days. He has a history of recurrent UTI's due to chronic urinary retention from BPH and urethral stricture, he also has to self cath at times during the week. He is prescribed prn Methenamine hippurate when he starts to develop UTI symptoms. He took a 5 day course approximately 2 weeks ago. He tells me he has not urinated since his procedure this am. Please refer to Dr. Camejo's attestation for any changes to the treatment plan Allergies Allergy/AdvReac Type Severity Reaction Status Date / Time dog dander Allergy Verified 06/02/22 15:39 house dust mite Allergy Verified 06/02/22 15:39 clarithromycin AdvReac Mild METALLIC Verified 06/02/22 15:39 TASTE IN MOUTH Home Medications Medication Instructions Recorded Confirmed Type fluticasone propionate 50 1 sprays intranasal BID 11/14/19 05/20/23 History mcg/actuation nasal spray,suspension (Flonase Allergy Relief) levocetirizine 5 mg tablet (Xyzal) 5 mg PO DAILY PRN Allergy Symptoms 11/14/19 05/20/23 History montelukast 10 mg tablet 10 mg PO DAILY 11/14/19 05/20/23 History (Singulair) metformin 500 mg tablet 100 mg PO AMPM 05/20/23 05/20/23 History semaglutide 0.25 mg or 0.5 mg (2 0.25 - 0.5 mg subcut WK 05/20/23 05/20/23 History mg/3 mL) subcutaneous pen injector (Ozempic) tamsulosin 0.4 mg capsule 0.4 mg PO AMHS 05/20/23 05/20/23 History venlafaxine 150 mg tablet,extended 150 mg PO QAM 05/20/23 05/20/23 History release 24 hr venlafaxine 75 mg capsule,extended 75 mg PO QAM 05/20/23 05/20/23 History release 24 hr Patient History Medical History BPH with obstruction/lower urinary tract symptoms Depression Diabetes Kidney stones Recurrent nephrolithiasis Surgical History Previous back surgery 02/2010 Social History Smoking Status: Never smoker Hx Alcohol Use: No Hx Substance Use: No Preferred Language: Slovenian Communication Ability: Effective Block And Case Maker Required: No Beliefs That Will Affect Care: Baptist Baptist Beliefs: Methedist Current Living Situation: Family Current Living Situation Comment: Lives at home with , 2 kids, and 2 puppies. Other Information That Helps Us Care for You: No Feels Safe at Home: Yes Safety Concerns: Feels Safe At This Time Assistive Devices: None Physical Exam Physical Exam: Physical Exam: General: In no acute distress, stated age, well-nourished, good hygiene HEENT: Normocephalic, atraumatic, no scleral icterus, pupils around round, symmetrical, and reactive to light, moist mucus membranes, trachea midline, no thyromegaly Chest/Pulm: No respiratory distress, symmetrical chest expansion, clear breath sounds throughout Cardiac: RRR, no murmurs noted Abdomen: Negative for ascites and bruising, normoactive bowel sounds, soft, non-tender to palpation throughout : Negative BL CVA tenderness Musculoskeletal: LLE currently wrapped and with brace in place, patient with minimal BL LE motor function due to never block, patient confirms sensation and motor function are slowly improving Extremities: Radial, dorsalis pedis, and posterior tibial pulses are intact and symmetrical Skin: Warm, dry, no rashes , lesions, or scars noted Neuro: Alert and oriented to person, place, month, year, and president, no focal defects, no tremors noted Psych: No acute distress, calm and cooperative during the exam Results & Data Results & Data Vital Signs (Past 12 Hours) Vital Signs Temp Pulse Pulse Resp BP Pulse Ox O2 Del Method 05/21/23 12:43 37.2 C 82 15 132/83 95 Room Air 05/21/23 12:10 36.6 C 75 16 145/79 H 96 Room Air 05/21/23 11:40 37.0 C 74 16 137/88 97 Room Air 05/21/23 11:20 75 16 113/78 98 Room Air 05/21/23 11:10 36.6 C 83 20 126/72 95 Room Air 05/21/23 11:00 83 22 127/76 94 Room Air 05/21/23 10:52 36.3 C L 85 16 120/69 100 Oxymask 05/21/23 07:45 37.0 C 88 18 155/96 H 96 Room Air 05/21/23 02:03 36.8 C 85 16 157/98 H 97 Room Air O2 Flow Rate 05/21/23 12:43 05/21/23 12:10 05/21/23 11:40 05/21/23 11:20 05/21/23 11:10 05/21/23 11:00 05/21/23 10:52 6 05/21/23 07:45 05/21/23 02:03 Laboratory Results Abnormal lab results 05/20/23 05/20/23 05/20/23 Range/Units Unknown Unknown Unknown WBC 12.76 H (4.8-10.8) K/ul Neut # (Auto) 9.92 H (1.40-6.50) K/uL Anion Gap 14 H (3-11) Creatinine 1.88 H (0.6-1.4) mg/dl BUN/Creatinine Ratio 8.5 L (10-20) Glucose 175 H (70-99(Fasting)) mg/dl POC Glucose (70-99) mg/dl Calcium 10.4 H (8.6-10.3) mg/dl Urine Appearance Turbid A (Clear) Ur Specific [place] 1.033 H (1.000-1.030) Urine Protein 2+ H (Negative) Urine Ketones 1+ H (Negative) Urine Bilirubin 1+ H (Negative) Urine WBC (Auto) 5-10 H (0-5) /hpf U Hyaline Cast (Auto) >30 H (0-5) /lpf U Epithel Cells (Auto) >30 H (0-5) /lpf Urine Bacteria (Auto) 1+ H (Negative) Calcium Oxalate Crystal Present A (None Prsent) 05/21/23 05/21/23 Range/Units 07:34 10:54 WBC (4.8-10.8) K/ul Neut # (Auto) (1.40-6.50) K/uL Anion Gap (3-11) Creatinine (0.6-1.4) mg/dl BUN/Creatinine Ratio (10-20) Glucose (70-99(Fasting)) mg/dl POC Glucose 116 H 124 H (70-99) mg/dl Calcium (8.6-10.3) mg/dl Urine Appearance (Clear) Ur Specific [place] (1.000-1.030) Urine Protein (Negative) Urine Ketones (Negative) Urine Bilirubin (Negative) Urine WBC (Auto) (0-5) /hpf U Hyaline Cast (Auto) (0-5) /lpf U Epithel Cells (Auto) (0-5) /lpf Urine Bacteria (Auto) (Negative) Calcium Oxalate Crystal (None Prsent) Diagnostic Findings Ankle X-Ray 05/20/23 19:05 LEFT ANKLE 3 VIEWS CLINICAL HISTORY: Left ankle trauma. FINDINGS: 3 portable views of the left ankle are obtained. No prior studies are available for comparison at the time of dictation. The skeletal structures are well mineralized. There is a displaced horizontal fracture of the distal fibula. There is lateral displacement of the distal fragment by approximately 2 cm, as well as approximately 3.5 cm of overriding of fragments. There is also a large dorsally displaced bone fragment, likely from the posterior malleolus of the tibia. There is dislocation of the ankle joint, with lateral displacement of the talus, which is angulated and overrides the distal tibia. An os trigonum is incidentally noted. There is a joint effusion. Significant soft tissue swelling is seen around the ankle. IMPRESSION: Fracture/dislocation of the left ankle joint as above. Electronically signed by: Coleman Isabel M.D. 05/21/2023 7:02 AM Tibia/Fibula X-Ray 05/20/23 19:05 XR tibia fibula LT 2V CLINICAL HISTORY: Lower leg trauma COMPARISON STUDY: Left ankle 05/20/2023. FINDINGS: Overlying splint material obscures fine bony detail. No significantly change in the left ankle fracture/dislocation which is better appreciated on the prior ankle radiograph. The proximal tibia and proximal fibula appear intact. No knee effusion. Fractures appear to involve the lateral and posterior malleoli. IMPRESSION: 1. No change in the left ankle fracture/dislocation. 2. The proximal tibia and fibula appear intact. ACT 112: Negative or not required by law. Electronically signed by: Carlos Alcantara M.D. 05/21/2023 8:03 AM Chest X-Ray 05/20/23 19:12 SINGLE VIEW CHEST CLINICAL HISTORY: Preoperative examination FINDINGS: An AP, portable, upright chest radiograph is compared to study dated 05/19/2018. The cardiomediastinal silhouette is unremarkable. There is mild elevation of right hemidiaphragm. The lungs and pleural spaces are clear. No pneumothorax is seen. The bony thorax is grossly intact. IMPRESSION: No active disease in the chest. ACT 112: Negative or not required by law. Electronically signed by: Coleman Isabel M.D. 05/21/2023 7:10 AM Ankle X-Ray 05/20/23 19:48 LEFT ANKLE 3 VIEWS CLINICAL HISTORY: Postreduction examination. FINDINGS: 3 portable views of the left ankle are compared to study performed earlier the same day 05/20/2023. The examination is performed through cast, obscuring fine bony detail. There is improved alignment status post closed reduction. Again seen is an oblique fracture of the distal fibular shaft. There is persistent lateral displacement of the distal fragment by one shaft length with mild overriding of fragments and angulation at the fracture site. There is a fracture of the posterior malleolus of the tibia with displaced fragments. There is persistent ankle joint dislocation. There is lateral displacement of the talus by approximately 1.5 cm, and dorsal displacement of the talus by approximately 2.5 cm. There is a joint effusion. Surrounding soft tissue edema is noted. IMPRESSION: Fracture/dislocation of the left ankle joint as above with improved alignment status post closed reduction. Electronically signed by: Coleman Isabel M.D. 05/21/2023 8:01 AM Ankle X-Ray 05/21/23 00:00 INTRAOPERATIVE RADIOGRAPHS CLINICAL HISTORY: Open reduction and internal fixation of the left ankle. Fluoro time: 38 seconds. Ka,r: 1.04 mGy FINDINGS: 3 spot fluoroscopic views of the left ankle are correlated with radiograph performed 05/20/2023. There has been buttress plate fixation of a distal fibular fracture with yazidism of near-anatomic alignment at the fracture site and the ankle joint. An additional small plate is seen along the medial cortex of the distal tibia. There is a posterior tibial placenta fracture. Overlying soft tissue edema is noted. IMPRESSION: Intraoperative images from open reduction and internal fixation of an ankle fracture/dislocation as above. Electronically signed by: Coleman Isabel M.D. 05/21/2023 11:05 AM ECG Additional Comments: Sinus rhythm with frequent Premature ventricular complexes Incomplete right bundle branch block Borderline ECG When compared with ECG of 20-MAY-2023 20:16, Premature ventricular complexes are now Present Confirmed by Kosta Zapien ([id number]) on 05/21/2023 1:55:18 PM PG Care Time/CCT Total # of Minutes Spent Total Time Spent with Patient: Total time spent is greater than 50% in coordination of care (as documented) at patient's floor/unit and/or counseling patient: [place] [address] IN/OBS CONSULT LVL 4,60M Patient Type New Medical Decision Making High Complexity Diagnoses Frequent PVCs I49.3 UTI (urinary tract infection) N39.0 REMI (acute kidney injury) N17.9 Status post ORIF of fracture of ankle Z98.890; Z87.81 DMII (diabetes mellitus, type 2) E11.9 BPH with obstruction/lower urinary tract symptoms N40.1; N13.8
--- NOTE | 2023-05-21 13:55 | Electrocardiogram Report ---
Test Reason : Blood Pressure : / mmHG Vent. Rate : 072 BPM Atrial Rate : 072 BPM P-R Int : 120 ms QRS Dur : 098 ms QT Int : 424 ms P-R-T Axes : 048 002 027 degrees QTc Int : 464 ms Sinus rhythm with frequent Premature ventricular complexes Incomplete right bundle branch block Borderline ECG When compared with ECG of 20-MAY-2023 20:16, Premature ventricular complexes are now Present Confirmed by Kosta Zapien ([id number]) on 05/21/2023 1:55:18 PM Referred By: REFERRED SELF Confirmed By:Kosta Zapien
[2023-05-21 14:42] LABS: Basophils # (auto) 0.02 K/uL (0-0.2); Basophils % (auto) 0.2 %; Eosinophils # (auto) 0.06 K/uL (0-0.50); Eosinophils % (auto) 0.6 %; Hemoglobin 12.1 g/dl (14.0-18.0); Immature Granulocytes # (auto) 0.03 K/uL (0.01-0.20); Immature Granulocytes % (auto) 0.3 %; Lymphocytes # (auto) 3.01 K/uL (1.2-3.4); Lymphocytes % (auto) 30.1 %; Mean Corpuscular Hemoglobin 29.2 pg (25.0-34.0); Mean Corpuscular Hgb Conc 32.7 g/dL (32.0-36.0); Mean Corpuscular Volume 89.4 fL (80.0-100.0); Mean Platelet Volume 9.8 fL (9.4-12.4); Monocytes # (auto) 0.67 K/uL (0.11-0.59); Monocytes % (auto) 6.7 %; Neutrophils % (auto) 62.1 %; Platelet Count 186 K/uL (130-400); RDW Coefficient of Variation 14.6 % (11.5-14.5); RDW Standard Deviation 47.3 fL (36.4-46.3); Red Blood Count 4.14 M/uL (4.70-6.10); White Blood Count 9.99 K/ul (4.8-10.8)
[2023-05-21 15:48] LABS: Albumin Globulin Ratio 1.6 (0.9-2); Albumin Level 3.6 gm/dl (3.4-5.0); BUN Creatinine Ratio 10.8 (10-20); Bilirubin,Total 0.7 mg/dl (0.2-1.0); Calcium 8.4 mg/dl (8.6-10.3); Creatinine Clr Calc Pharmacy 91.7 ml/min; Est GFR (Non-African American) 59.5 ml/min; Globulin 2.3 gm/dl (2.5-4.0); Magnesium 1.7 mg/dl (1.7-2.4); Potassium 3.8 mmol/L (3.5-5.1); Total Protein 5.9 gm/dl (6.0-8.3)
[2023-05-21] MEDS: oxyCODONE HCL IR 5 MG TAB (IMMEDIATE RELEASE) PO PRN ×2 (15:57→20:46)
[2023-05-21] MEDS: cefTRIAXone SODIUM 2,000 MG in DEXTROSE 5% 50 ML IV SCH (16:01)
[2023-05-21] MEDS ORDERED: metFORMIN HCL 500 MG TAB PO SCH (17:00)
[2023-05-21] MEDS: INSULIN ASPART PER UNIT CHARGE SC SCH ×2 (18:22→20:42)
[2023-05-21] MEDS: LANTUS PER UNIT CHARGE SQ SCH (20:46)
[2023-05-22] MEDS: oxyCODONE HCL IR 5 MG TAB (IMMEDIATE RELEASE) PO PRN ×2 (00:49→10:12)
[2023-05-22] MEDS: HYDROmorphone INJ 0.5 MG/0.5 ML SYR IV PRN ×6 (02:10→17:52)
[2023-05-22 06:46] LABS: Basophils # (auto) 0.03 K/uL (0-0.2); Basophils % (auto) 0.3 %; Eosinophils # (auto) 0.06 K/uL (0-0.50); Eosinophils % (auto) 0.6 %; Hematocrit (blood only) 39.3 % (42.0-52.0); Hemoglobin 12.9 g/dl (14.0-18.0); Immature Granulocytes # (auto) 0.04 K/uL (0.01-0.20); Immature Granulocytes % (auto) 0.4 %; Lymphocytes # (auto) 2.65 K/uL (1.2-3.4); Lymphocytes % (auto) 26.5 %; Mean Corpuscular Hemoglobin 29.1 pg (25.0-34.0); Mean Corpuscular Hgb Conc 32.8 g/dL (32.0-36.0); Mean Corpuscular Volume 88.7 fL (80.0-100.0); Mean Platelet Volume 9.9 fL (9.4-12.4); Monocytes # (auto) 0.88 K/uL (0.11-0.59); Monocytes % (auto) 8.8 %; Neutrophils # (auto) 6.35 K/uL (1.40-6.50); Neutrophils % (auto) 63.4 %; Platelet Count 181 K/uL (130-400); RDW Coefficient of Variation 14.5 % (11.5-14.5); RDW Standard Deviation 46.7 fL (36.4-46.3); Red Blood Count 4.43 M/uL (4.70-6.10); White Blood Count 10.01 K/ul (4.8-10.8)
--- NOTE | 2023-05-22 07:04 | Orthopedic Progress Note ---
Date of Service May 22, 2023 Assessment & Plan (1) Status post ORIF of fracture of ankle: Unfortunately struggling with some pain with his left ankle. This is not unexpected. The surgery went well. His ankle is elevated. His creatinine is returning to normal I do want to start him on some Toradol 30 mg IV every 8 hours to help with his pain. My experience this will give him most pain relief. We will continue to encourage fluid intake. He is on ceftriaxone for possible UTI and will be followed up with the hospitalist for that. He is currently on insulin for his diabetes as well. We will keep him in the hospital today, mostly for pain control and medical follow-up. He will be seen by physical therapy and will be shown nonweightbearing restrictions. At this point we will plan to discharge him to home tomorrow. Shara Durán was seen and examined at bedside this morning. Unfortunately is doing with a lot of pain in his left ankle. This is not an expected. He currently has his ankle elevated. He is on IV Dilaudid and oxycodone for pain management. He is being worked up by the hospitalist for possible UTI and is on ceftriaxone. He had no acute events overnight.. Review of Systems All systems reviewed & are unremarkable except as noted in HPI & below. Physical Exam On physical examination of his left ankle, the trauma splint is in place. His ankle is currently elevated. He is active motion of his toes and no signs of compartment syndrome.. Results & Data Results & Data Laboratory Results . Diagnostic Findings . PG Care Time/CCT Total # of Minutes Spent Total Time Spent with Patient: Total time spent is greater than 50% in coordination of care (as documented) at patient's floor/unit and/or counseling patient: Coding Level of Care Code 34102 Post Operative Follow-Up Diagnoses Status post ORIF of fracture of ankle Z98.890; Z87.81
[2023-05-22 07:06] LABS: BUN Creatinine Ratio 10.2 (10-20); Calcium 8.7 mg/dl (8.6-10.3); Est GFR (African American) 93.6 ml/min; Est GFR (Non-African American) 80.7 ml/min; Potassium 3.9 mmol/L (3.5-5.1)
[2023-05-22] MEDS ORDERED: MAGNESIUM SULFATE / D5W 1 GM/100 ML BAG IV ONE (08:00)
--- NOTE | 2023-05-22 08:01 | Hospitalist Progress Note ---
Date of Service May 22, 2023 Assessment & Plan (1) Frequent PVCs: Plan: Asymptomatic, no further discomfort as prior admitted outpatient. EKG w/ NSR frequent PVC, incomplete RBBB No need for tele Rec'd to f/u with cards and PCP outpatient if any ongoing issues/can consider holter monitor/etc On ASA BID for DVT prophylaxis in meantime but did discuss once daily for prevention/stress testing if having any CP. Discussed ordering EKG w/ CP however patient reports no further issues but to alert if any occur (2) UTI (urinary tract infection): Plan: Follows w/ Dr Juanjose owens, had been on medication for his prostate w/ flomax but no proscar/etc -- discusssed to discuss w/ Dr Owens in f/u Urine cx w/ pin-point growth -- he had reported dysuria over 4-5 days prior to admission Continue Rocephin for now and f/u urine cx/s (3) REMI (acute kidney injury): Plan: Cr 1.88 on admission w/ normal baseline IVF provided and normalized on repeat Cautious use NSAIDs ordered by primary given ongoing pain reports Avoid nephrotoxins/renal dose meds as able Monitor BMP in AM (4) Status post ORIF of fracture of ankle: Plan: -Pain control, perioperative abx, and DVT PPX per the primary team -No reported intraoperative complications -Rest of care per the primary team (5) DMII (diabetes mellitus, type 2): Plan: Hold metformin and Ozempic while inpatient BSG AC/HS, SSI while inpatient w/ lantus 5mg BID for now Last A1c in system 6.7 but in 2019 -- add w/ AM labs BSGs acceptable and will monitor (6) BPH with obstruction/lower urinary tract symptoms: Plan: Restarted flomax Has urinated since straight cath Tx UTI as above F/u Urology at discharge for consideration adding proscar vs other for BPH Plan continued inpatient stay, f/u urine cx/sensitivity but remains on IV abx for now Hospitalist service will continue to follow along. Please call with any questions/concerns. Admission and Anticipated Discharge Date Admission Date: May 20, 2023 Supervising Physician Co-Signing Physician Notes The patient was not seen by me. The chart was reviewed. Case discussed with DONNA Jordan. Agree with assessment and plan Subjective eval this morning, significant pain. has not been provided with toradol just yet as mentioned by primary. urine cx pinpoint growth -- follows w/ Dr Owens for prostate issues, on flomax but not proscar/finasteride. Discussed can f/u with Dr Owens about adding these. He is not going home today. Passing gas. No palpitations/chest pain/shortness of breath reported. Occasional twinges of discomfort about 5 times in the past several months, nothing since inpatient or being on aspirin for DVT proph. Chronic. Physical Exam Physical Exam: General: WD/WN male sitting up in bed, NAD but reporting need for pain medication, not given toradol yet HEENT: head normocephalic, atraumatic, mmm, trachea midline Resp: CTA, no w/c/r, on room air CV: RRR, no significant m/r/g, no pitting edema, toes mobile , pulses palpable (exception casting to LLE unable to but cap refill <3 seconds) GI +BS, slight distension, nontender MSK/Neuro: LLE wrapped with brace in place, toes mobile, sensation intact, no focal deficit, chronic foot drop reported Psych: AOx3, cooperative with exam Results & Data Results & Data Vital Signs (Past 12 Hours) Vital Signs Temp Pulse Resp BP Pulse Ox O2 Del Method 05/22/23 07:39 36.8 C 83 17 154/87 H 94 Room Air 05/21/23 21:45 Room Air 05/22/23 02:15 37.4 C 05/22/23 00:10 37.8 C H 85 16 165/98 H 94 Room Air 05/22/23 01:08 37.6 C H 05/21/23 20:00 38.1 C H 81 18 147/80 H 96 Room Air Laboratory Results 05/22/23 05/22/23 05/22/23 Range/Units 12:01 08:09 06:05 WBC (4.8-10.8) K/ul RBC (4.70-6.10) M/uL Hgb (14.0-18.0) g/dl Hct (42.0-52.0) % MCV (80.0-100.0) fL MCH (25.0-34.0) pg MCHC (32.0-36.0) g/dL RDW Std Deviation (36.4-46.3) fL RDW Coeff of Lobito (11.5-14.5) % Plt Count (130-400) K/uL MPV (9.4-12.4) fL Immature Gran % (Auto) % Neut % (Auto) % Lymph % (Auto) % Williamson % (Auto) % Eos % (Auto) % Baso % (Auto) % Neut # (Auto) (1.40-6.50) K/uL Lymph # (Auto) (1.2-3.4) K/uL Williamson # (Auto) (0.11-0.59) K/uL Eos # (Auto) (0-0.50) K/uL Baso # (Auto) (0-0.2) K/uL Immature Gran # (Auto) (0.01-0.20) K/uL Sodium 134 L (136-145) mmol/L Potassium 3.9 (3.5-5.1) mmol/L Chloride 99 (98-107) mmol/L Carbon Dioxide 27 (21-32) mmol/L Anion Gap 8 (3-11) BUN 11 (6-23) mg/dl Creatinine 1.08 D (0.6-1.4) mg/dl Est Cr Clr Drug Dosing 118.0 ml/min Est GFR ( Amer) 93.6 ml/min Est GFR (Non-Af Amer) 80.7 ml/min BUN/Creatinine Ratio 10.2 (10-20) Glucose 141 H (70-99(Fasting)) mg/dl POC Glucose 143 H 135 H (70-99) mg/dl Calcium 8.7 (8.6-10.3) mg/dl Magnesium (1.7-2.4) mg/dl Total Bilirubin (0.2-1.0) mg/dl AST (13-39) U/L ALT (7-52) U/L Alkaline Phosphatase (34-104) U/L Total Protein (6.0-8.3) gm/dl Albumin (3.4-5.0) gm/dl Globulin (2.5-4.0) gm/dl Albumin/Globulin Ratio (0.9-2) 25-OH Vitamin D Total (30-100) ng/ml PTH Intact (12.0-88.0) pg/ml 07/05/21/23 05/21/23 Range/Units 06:05 20:24 17:00 WBC 10.01 (4.8-10.8) K/ul RBC 4.43 L (4.70-6.10) M/uL Hgb 12.9 L (14.0-18.0) g/dl Hct 39.3 L (42.0-52.0) % MCV 88.7 (80.0-100.0) fL MCH 29.1 (25.0-34.0) pg MCHC 32.8 (32.0-36.0) g/dL RDW Std Deviation 46.7 H (36.4-46.3) fL RDW Coeff of Lobito 14.5 (11.5-14.5) % Plt Count 181 (130-400) K/uL MPV 9.9 (9.4-12.4) fL Immature Gran % (Auto) 0.4 % Neut % (Auto) 63.4 % Lymph % (Auto) 26.5 % Williamson % (Auto) 8.8 % Eos % (Auto) 0.6 % Baso % (Auto) 0.3 % Neut # (Auto) 6.35 (1.40-6.50) K/uL Lymph # (Auto) 2.65 (1.2-3.4) K/uL Williamson # (Auto) 0.88 H (0.11-0.59) K/uL Eos # (Auto) 0.06 (0-0.50) K/uL Baso # (Auto) 0.03 (0-0.2) K/uL Immature Gran # (Auto) 0.04 (0.01-0.20) K/uL Sodium (136-145) mmol/L Potassium (3.5-5.1) mmol/L Chloride (98-107) mmol/L Carbon Dioxide (21-32) mmol/L Anion Gap (3-11) BUN (6-23) mg/dl Creatinine (0.6-1.4) mg/dl Est Cr Clr Drug Dosing ml/min Est GFR ( Amer) ml/min Est GFR (Non-Af Amer) ml/min BUN/Creatinine Ratio (10-20) Glucose (70-99(Fasting)) mg/dl POC Glucose 144 H 105 H (70-99) mg/dl Calcium (8.6-10.3) mg/dl Magnesium (1.7-2.4) mg/dl Total Bilirubin (0.2-1.0) mg/dl AST (13-39) U/L ALT (7-52) U/L Alkaline Phosphatase (34-104) U/L Total Protein (6.0-8.3) gm/dl Albumin (3.4-5.0) gm/dl Globulin (2.5-4.0) gm/dl Albumin/Globulin Ratio (0.9-2) 25-OH Vitamin D Total (30-100) ng/ml PTH Intact (12.0-88.0) pg/ml 05/21/23 05/21/23 05/21/23 Range/Units 14:20 14:20 14:20 WBC (4.8-10.8) K/ul RBC (4.70-6.10) M/uL Hgb (14.0-18.0) g/dl Hct (42.0-52.0) % MCV (80.0-100.0) fL MCH (25.0-34.0) pg MCHC (32.0-36.0) g/dL RDW Std Deviation (36.4-46.3) fL RDW Coeff of Lobito (11.5-14.5) % Plt Count (130-400) K/uL MPV (9.4-12.4) fL Immature Gran % (Auto) % Neut % (Auto) % Lymph % (Auto) % Williamson % (Auto) % Eos % (Auto) % Baso % (Auto) % Neut # (Auto) (1.40-6.50) K/uL Lymph # (Auto) (1.2-3.4) K/uL Williamson # (Auto) (0.11-0.59) K/uL Eos # (Auto) (0-0.50) K/uL Baso # (Auto) (0-0.2) K/uL Immature Gran # (Auto) (0.01-0.20) K/uL Sodium Cancelled (136-145) mmol/L Potassium Cancelled (3.5-5.1) mmol/L Chloride Cancelled (98-107) mmol/L Carbon Dioxide Cancelled (21-32) mmol/L Anion Gap Cancelled (3-11) BUN Cancelled (6-23) mg/dl Creatinine Cancelled (0.6-1.4) mg/dl Est Cr Clr Drug Dosing Cancelled ml/min Est GFR ( Amer) Cancelled ml/min Est GFR (Non-Af Amer) Cancelled ml/min BUN/Creatinine Ratio Cancelled (10-20) Glucose Cancelled (70-99(Fasting)) mg/dl POC Glucose (70-99) mg/dl Calcium Cancelled (8.6-10.3) mg/dl Magnesium (1.7-2.4) mg/dl Total Bilirubin Cancelled (0.2-1.0) mg/dl AST Cancelled (13-39) U/L ALT Cancelled (7-52) U/L Alkaline Phosphatase Cancelled (34-104) U/L Total Protein Cancelled (6.0-8.3) gm/dl Albumin Cancelled (3.4-5.0) gm/dl Globulin Cancelled (2.5-4.0) gm/dl Albumin/Globulin Ratio Cancelled (0.9-2) 25-OH Vitamin D Total 17.3 L (30-100) ng/ml PTH Intact 44.6 (12.0-88.0) pg/ml 05/21/23 05/21/23 Range/Units 14:20 14:20 WBC 9.99 (4.8-10.8) K/ul RBC 4.14 L (4.70-6.10) M/uL Hgb 12.1 L (14.0-18.0) g/dl Hct 37.0 L (42.0-52.0) % MCV 89.4 (80.0-100.0) fL MCH 29.2 (25.0-34.0) pg MCHC 32.7 (32.0-36.0) g/dL RDW Std Deviation 47.3 H (36.4-46.3) fL RDW Coeff of Lobito 14.6 H (11.5-14.5) % Plt Count 186 (130-400) K/uL MPV 9.8 (9.4-12.4) fL Immature Gran % (Auto) 0.3 % Neut % (Auto) 62.1 % Lymph % (Auto) 30.1 % Williamson % (Auto) 6.7 % Eos % (Auto) 0.6 % Baso % (Auto) 0.2 % Neut # (Auto) 6.20 (1.40-6.50) K/uL Lymph # (Auto) 3.01 (1.2-3.4) K/uL Williamson # (Auto) 0.67 H (0.11-0.59) K/uL Eos # (Auto) 0.06 (0-0.50) K/uL Baso # (Auto) 0.02 (0-0.2) K/uL Immature Gran # (Auto) 0.03 (0.01-0.20) K/uL Sodium 134 L (136-145) mmol/L Potassium 3.8 (3.5-5.1) mmol/L Chloride 101 (98-107) mmol/L Carbon Dioxide 25 (21-32) mmol/L Anion Gap 8 (3-11) BUN 15 (6-23) mg/dl Creatinine 1.39 D (0.6-1.4) mg/dl Est Cr Clr Drug Dosing 91.7 ml/min Est GFR ( Amer) 69.0 ml/min Est GFR (Non-Af Amer) 59.5 ml/min BUN/Creatinine Ratio 10.8 (10-20) Glucose 175 H (70-99(Fasting)) mg/dl POC Glucose (70-99) mg/dl Calcium 8.4 L D (8.6-10.3) mg/dl Magnesium 1.7 (1.7-2.4) mg/dl Total Bilirubin 0.7 (0.2-1.0) mg/dl AST 22 (13-39) U/L ALT 29 (7-52) U/L Alkaline Phosphatase 51 (34-104) U/L Total Protein 5.9 L D (6.0-8.3) gm/dl Albumin 3.6 (3.4-5.0) gm/dl Globulin 2.3 L (2.5-4.0) gm/dl Albumin/Globulin Ratio 1.6 (0.9-2) 25-OH Vitamin D Total (30-100) ng/ml PTH Intact (12.0-88.0) pg/ml PG Care Time/CCT Total # of Minutes Spent Total Time Spent with Patient: Total time spent is greater than 50% in coordination of care (as documented) at patient's floor/unit and/or counseling patient: Coding Level of Care Code 54191 SUB INP/OBS CARE 2/35MIN Diagnoses Frequent PVCs I49.3 UTI (urinary tract infection) N39.0 REMI (acute kidney injury) N17.9 Status post ORIF of fracture of ankle Z98.890; Z87.81 DMII (diabetes mellitus, type 2) E11.9 BPH with obstruction/lower urinary tract symptoms N40.1; N13.8
[2023-05-22] MEDS: INSULIN ASPART PER UNIT CHARGE SC SCH ×4 (08:37→20:41)
[2023-05-22] MEDS: LANTUS PER UNIT CHARGE SQ SCH ×2 (08:37→20:41)
[2023-05-22] MEDS: MONTELUKAST SODIUM 10 MG TABLET PO SCH (08:38)
[2023-05-22] MEDS: ASPIRIN 81 MG ECTAB PO SCH ×2 (08:38→20:01)
[2023-05-22] MEDS: TAMSULOSIN HCL 0.4 MG CAP PO SCH ×2 (08:39→20:01)
[2023-05-22] MEDS: FLUTICASONE PROPIONATE NA SPR 16 GM BTL NAE SCH ×2 (08:39→20:01)
[2023-05-22] MEDS ORDERED: ASPIRIN 81 MG ECTAB PO SCH (09:00)
[2023-05-22] MEDS: cefTRIAXone SODIUM 2,000 MG in DEXTROSE 5% 50 ML IV SCH (13:07)
[2023-05-22] MEDS: KETOROLAC 30 MG/ML VIAL IV SCH ×2 (13:54→21:37)
[2023-05-22] MEDS: VENLAFAXINE HCL XR 75 MG CAPXR PO SCH (20:00)
[2023-05-22] MEDS: VENLAFAXINE HCL XR 150 MG CAPXR PO SCH (20:01)
[2023-05-23] MEDS: KETOROLAC 30 MG/ML VIAL IV SCH (05:10)
[2023-05-23 07:22] LABS: Basophils # (auto) 0.03 K/uL (0-0.2); Basophils % (auto) 0.4 %; Eosinophils # (auto) 0.11 K/uL (0-0.50); Eosinophils % (auto) 1.4 %; Hematocrit (blood only) 36.1 % (42.0-52.0); Hemoglobin 11.9 g/dl (14.0-18.0); Immature Granulocytes # (auto) 0.03 K/uL (0.01-0.20); Immature Granulocytes % (auto) 0.4 %; Lymphocytes # (auto) 2.12 K/uL (1.2-3.4); Lymphocytes % (auto) 26.3 %; Mean Corpuscular Hemoglobin 28.6 pg (25.0-34.0); Mean Corpuscular Volume 86.8 fL (80.0-100.0); Mean Platelet Volume 10.1 fL (9.4-12.4); Monocytes # (auto) 0.74 K/uL (0.11-0.59); Monocytes % (auto) 9.2 %; Neutrophils # (auto) 5.03 K/uL (1.40-6.50); Neutrophils % (auto) 62.3 %; Platelet Count 168 K/uL (130-400); RDW Coefficient of Variation 14.2 % (11.5-14.5); RDW Standard Deviation 45.3 fL (36.4-46.3); Red Blood Count 4.16 M/uL (4.70-6.10); White Blood Count 8.06 K/ul (4.8-10.8)
[2023-05-23 07:39] LABS: BUN Creatinine Ratio 13.5 (10-20); Calcium 8.9 mg/dl (8.6-10.3); Creatinine Clr Calc Pharmacy 132.8 ml/min; Est GFR (African American) 107.9 ml/min; Est GFR (Non-African American) 93.1 ml/min; Potassium 4.6 mmol/L (3.5-5.1)
--- NOTE | 2023-05-23 07:42 | Hospitalist Progress Note ---
Date of Service May 23, 2023 Assessment & Plan (1) Frequent PVCs: Plan: Asymptomatic, no further discomfort as prior admitted outpatient. EKG w/ NSR frequent PVC, incomplete RBBB No need for tele Rec'd to f/u with cards and PCP outpatient if any ongoing issues/can consider holter monitor/etc On ASA BID for DVT prophylaxis in meantime but did discuss once daily for prevention/stress testing if having any CP. Discussed ordering EKG w/ CP however patient reports no further issues but to alert if any occur Discussed with patient about continuing baby aspirin once off DVT prophylaxis but to also f/u PCP about possible referral to cardiology/stress testing vs ho lter monitor as outpatient. No further issues over past 48 hours while inpatient Stable for discharge Did discuss w/ patient about bowel regimen at dc to prevent constipation as reported w/ prior surgeries (2) UTI (urinary tract infection): Plan: Follows w/ Dr Juanjose owens, had been on medication for his prostate w/ flomax but no proscar/etc -- discussed to discuss w/ Dr Owens in f/u Urine cx final normal twan No further abx F/u Dr Owens outpatient recommended Can resume mag citrate for prevention of stone formation (3) REMI (acute kidney injury): Plan: Cr 1.88 on admission w/ normal baseline IVF provided and normalized on repeat Toradol utilized for pain and renal function remained stable Cr 0.96 prior to discharge Patient has f/u with Dr Jorge -- did discuss cautious use NSAIDs half-way. He is going to stay hydrated/monitor urine (4) Status post ORIF of fracture of ankle: Plan: POD #2 ORIF LEFT ankle with Dr Shore Pain control/bowel regimen/PT/OT per primary service Utilizing ASA 81mg BID for DVT prophylaxis as above (5) DMII (diabetes mellitus, type 2): Plan: Held metformin and Ozempic while inpatient BSG AC/HS, SSI while inpatient w/ lantus 5mg BID for now Last A1c in system 6.7 but in 2019 -- repeat A1c improved to 6.1 Discussed can resume ozempic at discharge but would wait until moving bowels to ensure no issues w/ constipation BSG 127 prior to discharge (6) BPH with obstruction/lower urinary tract symptoms: Plan: Restarted flomax , has urinated since without reported issue Follows w/ Juanjose Owens from Urology --> rec to f/u and discuss about 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 Please call with any questions/concerns. Admission and Anticipated Discharge Date Admission Date: May 20, 2023 Supervising Physician Co-Signing Physician Notes The patient was not seen by me. The chart was reviewed. Case discussed with DONNA Jordan. Agree with assessment and plan Subjective eval this morning, feeling well, doing better since getting toradol. anticipating discharge. passing lots of gas but no bowel movement. issues prior w/ constipation after surgery and discussed bowel regimen. has f/u Dr Jorge outpatient. Dr Owens rec'd to f/u about proscar/finasteride. No CP - continuing aspirin bid, rec to continue once daily/eval by PCP /ref to cards as outpatient. urine culture negative. no fevers. no chest pain/shortness of breath. questions/concerns addressed. Physical Exam Physical Exam: General: WD/WN male sitting up in chair, dressed, NAD, anticipating discharge and wondering about medicated prior to travel/trip home HEENT: head normocephalic, atraumatic, mmm, trachea midline Resp: CTA, no w/c/r, on room air CV: RRR, no significant m/r/g, no pitting edema, toes mobile , pulses palpable (exception casting due to LLE but cap refill <3 seconds/toes mobile) GI +BS throughout, slight distension, nontender MSK/Neuro: LLE wrapped with brace in place, toes mobile, sensation intact, no focal deficit, chronic foot drop reported Psych: AOx3, cooperative with exam Results & Data Results & Data Vital Signs (Past 12 Hours) Vital Signs Temp Pulse Resp BP BP Pulse Ox O2 Del Method 05/23/23 07:39 36.8 C 79 15 124/80 97 Room Air 05/22/23 21:00 36.9 C 76 18 149/88 H 98 Room Air Laboratory Results 05/23/23 05/23/23 05/23/23 Range/Units 07:56 06:46 06:46 WBC (4.8-10.8) K/ul RBC (4.70-6.10) M/uL Hgb (14.0-18.0) g/dl Hct (42.0-52.0) % MCV (80.0-100.0) fL MCH (25.0-34.0) pg MCHC (32.0-36.0) g/dL RDW Std Deviation (36.4-46.3) fL RDW Coeff of Lobito (11.5-14.5) % Plt Count (130-400) K/uL MPV (9.4-12.4) fL Immature Gran % (Auto) % Neut % (Auto) % Lymph % (Auto) % Coke % (Auto) % Eos % (Auto) % Baso % (Auto) % Neut # (Auto) (1.40-6.50) K/uL Lymph # (Auto) (1.2-3.4) K/uL Coke # (Auto) (0.11-0.59) K/uL Eos # (Auto) (0-0.50) K/uL Baso # (Auto) (0-0.2) K/uL Immature Gran # (Auto) (0.01-0.20) K/uL Sodium (136-145) mmol/L Potassium (3.5-5.1) mmol/L Chloride (98-107) mmol/L Carbon Dioxide (21-32) mmol/L Anion Gap (3-11) BUN (6-23) mg/dl Creatinine (0.6-1.4) mg/dl Est Cr Clr Drug Dosing ml/min Est GFR ( Amer) ml/min Est GFR (Non-Af Amer) ml/min BUN/Creatinine Ratio (10-20) Glucose (70-99(Fasting)) mg/dl POC Glucose 127 H (70-99) mg/dl Estimat Average Glucose 128 mg/dl Hemoglobin A1c 6.1 H (4.5-5.6) % Calcium (8.6-10.3) mg/dl TSH 0.981 (0.300-4.500) uIu/ml 05/23/23 05/23/23 05/22/23 Range/Units 06:46 06:46 20:34 WBC 8.06 (4.8-10.8) K/ul RBC 4.16 L (4.70-6.10) M/uL Hgb 11.9 L (14.0-18.0) g/dl Hct 36.1 L (42.0-52.0) % MCV 86.8 (80.0-100.0) fL MCH 28.6 (25.0-34.0) pg MCHC 33.0 (32.0-36.0) g/dL RDW Std Deviation 45.3 (36.4-46.3) fL RDW Coeff of Lobito 14.2 (11.5-14.5) % Plt Count 168 (130-400) K/uL MPV 10.1 (9.4-12.4) fL Immature Gran % (Auto) 0.4 % Neut % (Auto) 62.3 % Lymph % (Auto) 26.3 % Coke % (Auto) 9.2 % Eos % (Auto) 1.4 % Baso % (Auto) 0.4 % Neut # (Auto) 5.03 (1.40-6.50) K/uL Lymph # (Auto) 2.12 (1.2-3.4) K/uL Coke # (Auto) 0.74 H (0.11-0.59) K/uL Eos # (Auto) 0.11 (0-0.50) K/uL Baso # (Auto) 0.03 (0-0.2) K/uL Immature Gran # (Auto) 0.03 (0.01-0.20) K/uL Sodium 134 L (136-145) mmol/L Potassium 4.6 (3.5-5.1) mmol/L Chloride 101 (98-107) mmol/L Carbon Dioxide 28 (21-32) mmol/L Anion Gap 5 (3-11) BUN 13 (6-23) mg/dl Creatinine 0.96 (0.6-1.4) mg/dl Est Cr Clr Drug Dosing 132.8 ml/min Est GFR ( Amer) 107.9 ml/min Est GFR (Non-Af Amer) 93.1 ml/min BUN/Creatinine Ratio 13.5 (10-20) Glucose 135 H (70-99(Fasting)) mg/dl POC Glucose 114 H (70-99) mg/dl Estimat Average Glucose mg/dl Hemoglobin A1c (4.5-5.6) % Calcium 8.9 (8.6-10.3) mg/dl TSH (0.300-4.500) uIu/ml 05/22/23 05/22/23 Range/Units 16:58 12:01 WBC (4.8-10.8) K/ul RBC (4.70-6.10) M/uL Hgb (14.0-18.0) g/dl Hct (42.0-52.0) % MCV (80.0-100.0) fL MCH (25.0-34.0) pg MCHC (32.0-36.0) g/dL RDW Std Deviation (36.4-46.3) fL RDW Coeff of Lobito (11.5-14.5) % Plt Count (130-400) K/uL MPV (9.4-12.4) fL Immature Gran % (Auto) % Neut % (Auto) % Lymph % (Auto) % Coke % (Auto) % Eos % (Auto) % Baso % (Auto) % Neut # (Auto) (1.40-6.50) K/uL Lymph # (Auto) (1.2-3.4) K/uL Coke # (Auto) (0.11-0.59) K/uL Eos # (Auto) (0-0.50) K/uL Baso # (Auto) (0-0.2) K/uL Immature Gran # (Auto) (0.01-0.20) K/uL Sodium (136-145) mmol/L Potassium (3.5-5.1) mmol/L Chloride (98-107) mmol/L Carbon Dioxide (21-32) mmol/L Anion Gap (3-11) BUN (6-23) mg/dl Creatinine (0.6-1.4) mg/dl Est Cr Clr Drug Dosing ml/min Est GFR ( Amer) ml/min Est GFR (Non-Af Amer) ml/min BUN/Creatinine Ratio (10-20) Glucose (70-99(Fasting)) mg/dl POC Glucose 135 H 143 H (70-99) mg/dl Estimat Average Glucose mg/dl Hemoglobin A1c (4.5-5.6) % Calcium (8.6-10.3) mg/dl TSH (0.300-4.500) uIu/ml PG Care Time/CCT Total # of Minutes Spent Total Time Spent with Patient: Total time spent is greater than 50% in coordination of care (as documented) at patient's floor/unit and/or counseling patient: Coding Level of Care Code 29879 SUB INP/OBS CARE 2/35MIN Diagnoses Frequent PVCs I49.3 UTI (urinary tract infection) N39.0 REMI (acute kidney injury) N17.9 Status post ORIF of fracture of ankle Z98.890; Z87.81 DMII (diabetes mellitus, type 2) E11.9 BPH with obstruction/lower urinary tract symptoms N40.1; N13.8
[2023-05-23 07:52] LABS: Estimated Average Glucose 128 mg/dl; Hemoglobin A1C 6.1 % (4.5-5.6)
[2023-05-23] MEDS: INSULIN ASPART PER UNIT CHARGE SC SCH (08:47)
[2023-05-23] MEDS: TAMSULOSIN HCL 0.4 MG CAP PO SCH (08:51)
[2023-05-23] MEDS: MONTELUKAST SODIUM 10 MG TABLET PO SCH (08:51)
[2023-05-23] MEDS: FLUTICASONE PROPIONATE NA SPR 16 GM BTL NAE SCH (08:52)
[2023-05-23] MEDS: ASPIRIN 81 MG ECTAB PO SCH (08:52)
[2023-05-23] MEDS: LANTUS PER UNIT CHARGE SQ SCH (09:09)
--- NOTE | 2023-05-23 09:11 | Orthopedic Progress Note ---
Date of Service May 23, 2023 Assessment & Plan (1) Status post ORIF of fracture of ankle: Overall he is doing well and happy with his progress. The Toradol seemed to help a lot with his pain. He is been doing well with physical therapy. He will be nonweightbearing on the left leg. He is on aspirin 81 mg twice a day for DVT prophylaxis. He can be discharged to home later today if okay with the hospitalist. Full orthopedic discharge instructions were placed in the discharge summary. A follow-up with orthopedics in 2 weeks. Shara Durán was seen and examined at bedside this morning. Overall he is doing better. He said the Toradol helped a lot with his pain. He is sitting up in a chair. He is doing well with therapy. He has no complaints.. Review of Systems All systems reviewed & are unremarkable except as noted in HPI & below. Physical Exam On physical examination of the left leg, the trauma splint is clean and dry. He has active motion of his toes.. Results & Data Results & Data Laboratory Results . Diagnostic Findings . PG Care Time/CCT Total # of Minutes Spent Total Time Spent with Patient: Total time spent is greater than 50% in coordination of care (as documented) at patient's floor/unit and/or counseling patient: Coding Level of Care Code 90186 Post Operative Follow-Up Diagnoses Status post ORIF of fracture of ankle Z98.890; Z87.81
--- NOTE | 2023-05-23 09:14 | Discharge Summary ---
Date of Service May 23, 2023 Admission HPI (Per Admitting) Luis Armando is a pleasant 48-year-old male who is out doing yard work yesterday when he slipped on a downslope. He twisted his left ankle severely. He came to the emergency room where radiographs demonstrated a lateral dislocation of the ankle with a syndesmotic injury and a fibular fracture. He was admitted to the orthopedic service for definitive treatment. Admission Exam (Per Admitting) On physical examination of the left ankle, he has a trauma splint when I saw him. He can move his toes some. 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 Principal Diagnosis Same as "Discharge Diagnosis" noted below under Discharge Instructions. Discharge Exam On physical examination of the left leg, the trauma splint is clean and dry. He has active motion of his toes.. Discharge Data Consultations 05/20/23 20:30 ED Decision to Admit Stat 05/21/23 12:22 Consult Hospitalist Routine Procedures Performed Operation Date: 05/21/23 10:20 Actual Procedures p Left Open Reduction Internal Fixation Ankle(Left) - Roger Shore DO Ordered Studies 05/21/23 [place] ankle LT min 3V RTN Routine Hospital Course (1) Status post ORIF of fracture of ankle: On May 20, 2023 Luis Armando suffered a fracture dislocation of his left ankle. He went to the emergency room and had his ankle reduced. He was then admitted to the orthopedic service. The following day he was taken to the operating room and underwent an open reduction internal fixation of his left ankle without complication. He had a spinal anesthetic. Postoperatively he was started on aspirin for DVT prophylaxis and transferred back to the general orthopedic floors. His hospital course was uneventful. On postop day #1, his vital signs were stable. He was having a lot of pain in the left ankle. We kept it elevated and kept him on pain control. We started him on Toradol which seemed to help a lot with his pain. He was seen by physical therapy. The following day he continued to do well. He was seen once again by physical therapy. He was then discharged home. He will follow-up with orthopedics in 2 weeks. PG Care Time/CCT Total # of Minutes Spent Total Time Spent with Patient: Total time spent is greater than 50% in coordination of care (as documented) at patient's floor/unit and/or counseling patient: Discharge Plan Discharge Items Patient Disposition: Home - Home Health Services Reason For Visit: ANKLE FRACTURE Discharge Diagnosis: Left ankle fracture Activity: Per Instructions section Non-emergency contact: Surgeon Call non-emergency contact if: your wound has increased redness and your wound has increased drainage Follow-up/Referrals: Chacorta Ulrich DO [Primary Care Provider] - Diet: Regular Addtl Attending Provider Instructions: ORTHOPEDIC INSTRUCTIONS Activity Recommendations: Nonweightbearing on the left ankle Medications: Take narcotics as prescribed. Take an aspirin 81 mg twice a day for 6 weeks. Dressing Care: Leave the trauma splint in place until follow-up in the office Showering: Do not get the trauma splint wet. Follow-Up Visit: Follow-up with Dr. Shore's PA (Roger Rai) 2-3 weeks after your day of surger y. He will remove your gadiel and answer any questions. If you have any additional questions or concerns, Dr Shore is usually in the office at the same time and will be available Please call the office to set up an appointment for a time that works for you. Pending Studies at Discharge: No Stand-Alone Forms: [employer], Smoking Cessation Medications and DC Order Prescriptions: New aspirin 81 mg Tablet,Delayed Release (/Ec) 81 mg PO BID 42 Days Qty: 84 0RF oxycodone 5 mg Tablet 5 mg PO Q4H PRN (Reason: pain) Qty: 30 0RF Continued montelukast [Singulair] 10 mg tablet 10 mg PO DAILY levocetirizine [Xyzal] 5 mg tablet 5 mg PO DAILY PRN (Reason: Allergy Symptoms) fluticasone propionate [Flonase Allergy Relief] 50 mcg/actuation spray,suspension 1 sprays INTNAS BID venlafaxine 75 mg capsule,extended release 24hr 75 mg PO QAM venlafaxine 150 mg Tablet Extended Release 24hr 150 mg PO QAM tamsulosin 0.4 mg capsule 0.4 mg PO AMHS metformin 500 mg tablet 100 mg PO AMPM Ozempic 0.25 mg or 0.5 mg (2 mg/3 mL) pen injector 0.25 - 0.5 mg SUBCUT WK Discharge Orders: Discharge Order (Routine); Ordered 05/23/23 Ordered By: Roger Shore Admission Data Admit Date/Time: 05/20/23 20:52 Attending Provider: Roger Shore Admit Provider: Roger Shore Primary Care Provider: Chacorta Ulrich Other Providers: Roger Shore ; Dennis Stephens ; Katharine Almaraz ; Kamar Bustos ; Bob Castro ; Chris Live ; Kalpesh Laura ; Coleman Batista ; Umu Mckinney ; Nell Díaz ; Lalito Bergman ; Carmen Bennett ; Sven Barker ; Bambi rCuz ; Phan Dugan ; Rufino Oseguera ; Katharine Alvarez ; Bette Mccarthy ; Saul Greer ; Kamar Camejo ; Aimee Pena ; Rafa Aguilar ; Burt Park ; Chris Trivedi ; Kena Lozada ; Vin Vences ; Michele Maria ; Sandra Dyer ; Samuel Calderon ; Bob Parra ; Chris Gupta
[2023-05-23] MEDS: oxyCODONE HCL IR 5 MG TAB (IMMEDIATE RELEASE) PO PRN (10:49)
== END 2023-05-23 11:44 | disposition home or self-care (01) | DRG 493 ==
LOC: ED 18:53 → 3N 20:52

== ENCOUNTER 2023-08-29 12:54 | Observation (INO) ==
[2023-08-29] MEDS ORDERED: KETOROLAC 30 MG/ML VIAL IV STA (13:32)
[2023-08-29] MEDS ORDERED: SODIUM CHLORIDE 0.9% 1,000 ML IV ONE (13:32)
--- NOTE | 2023-08-29 13:38 | Emergency Department Note ---
Impression & Plan Cellulitis of perineum, Abrasion of penis with infection, Infection of scrotum, Acute gout involving toe of left foot ED Provider Note Name: EDGARD NICHOLS Age: 48 Sex: Male Arrives Via: Walk-In Informant: Patient, ED Provider: Ralph Lawson MD Chief Complaint: Penial Infection Impression: As per impressions above Medical Decision Makin-year-old gentleman with a history of diabetes arrives for evaluation of worsening penile pain as well as left foot pain. Examination of left foot reveals a swollen erythematous left great toe and some erythema over the ball of the foot. This is consistent with gout. There is no significant streaking there is no current drainage. X-rays reveal no evidence of osteomyelitis. Patient was given some Toradol and then some Dilaudid for pain control. Patient's perineal infection is more concerning. He has an abrasion over the lateral left penis which is weeping and increasing cellulitis throughout the penis, suprapubic area and onto the right scrotum. During the short course that he was in the ER symptoms continued to worsen and the redness has significantly increased. Blood cultures were obtained and lactic acid is normal. White count and Pro-Jose look good. Given the findings CT was obtained. There is cellulitis throughout the suprapubic region. I feel patient is at high risk of rapid worsening. I reviewed this with urology who agreed that hospitalization for IV antibiotics is likely indicated. Agreed with plan to start with Unasyn and escalate if need be. Patient is afebrile with good vital signs. At this point there is no clear evidence of sepsis but he does agree high risk of worsening. Triage/Nursing Notes reviewed by Me External Chart Review by me: I personally reviewed inpatient records from a few months ago as well as orthopedic records. Differential:Cellulitis, abrasion, Gideon's, sepsis, abscess, gout, osteomyelitis, many other pathologies considered Vital Signs: reviewed and remarkable for hypertension Interventions: Toradol IV, normal saline bolus IV, Dilaudid IV, Unasyn 3 g IV Labs:ED labs Reviewed by me and remarkable for no significant abnormalities Imaging:X-ray of the left great toe as per my interpretation reveals mild soft tissue swelling no fracture, dislocation or clear evidence of osteomyelitis CT of the pelvis with IV contrast. There is stranding throughout the suprapubic region and along the right perineum. There is no free air. There is no abscess appreciated. This was confirmed by radiologist. Consults:Dr [facility] & Dr Nell BILLY Hospitalist Plan: Disposition:Hospitalization. Condition: Good History of Present Illness: 48-year-old male arrives for evaluation of both pelvic discomfort and left toe inflammation. Patient states he was seen at urology office and a urinalysis was obtained. The next day he noted inflammation of the left side of his penis. Rapidly worsening. He now has some swelling of the penis, the right groin in the suprapubic region. Associated with some discomfort but no fevers, chills, vomiting. Denies any urinary burning. He was seen by urgent care and diagnosed with strep infection and started on amoxicillin yesterday. He has had 3 doses of amoxicillin thus far. He also notes a 12-hour history of left great toe infection/swelling. Had severe pain so he pulled off the medial aspect of the toenail thinking it was a hangnail. This just made the pain worse. Notes swelling and erythema of the toe. Worse with walking on it. Pain comes in waves and is stabbing in nature. Does have some swelling of the left great toe and proximal foot. No drainage nor redness going up the leg or swelling of the leg. Does have a history of a left ankle surgery a few months ago for ankle fracture. Using ibuprofen with some improvement. History of diabetes and blood sugars have been stable. Past Medical History:See Below Home Medications:See Below Allergies:clarithromycin Vitals:Blood Pressure: 189/128, Pulse 96, RR 20, T 36.9C, O2 99% on RA Physical Exam: GENERAL: Patient is uncomfortable appearing and in mild distress. RESPIRATORY: No dyspnea. Clear to auscultation and equal bilaterally. CARDIOVASCULAR: Regular rate and rhythm.No murmur appreciated. GASTROINTESTINAL: Abdomen soft, non-tender, no peritonitis. BACK: No midline tenderness, no CVA tenderness : Swelling of the peripenile area with ulceration of the left side of penis. 2 dark brown growths/warts over the right side of penis. There is some tenderness palpation over the suprapubic and in particular right suprapubic area. There is some thickening of the scrotum on the right with some mild erythema and tenderness palpation. EXTREMITIES: Normal motion all extremities, no cyanosis, no edema. There is erythema and some swelling of the left great toe extending over the ball of the foot on the bottom of the foot. Tenderness palpation with movement. Toenail has been removed over the medial aspect of toe. NEUROLOGIC: Alert and oriented. No focal neurologic deficits appreciated SKIN: No rash, no jaundice, no diaphoresis. PSYCH: Appropriate GCS: 15 ED Course: Times/Reassessments: Repeat evaluations patient's blood pressure is mildly improved. His pain is still continuing thus he was given some IV Dilaudid. He and his are comfortable with plan for hospitalization for close monitoring. Ralph Lawson MD Past Med/Surg History Medical History (Updated 08/29/23 @ 18:38 by Ralph Lawson MD) BPH with obstruction/lower urinary tract symptoms Kidney stones Depression Diabetes Recurrent nephrolithiasis Surgical History Previous back surgery 02/2010 Social History Smoking Status: Never smoker Hx Alcohol Use: No Hx Substance Use: No Preferred Language: Mohawk Communication Ability: Effective Paperboard Box Maker Required: No Beliefs That Will Affect Care: Yazdanism Yazdanism Beliefs: Methedist Current Living Situation: Family Current Living Situation Comment: Lives at home with , 2 kids, and 2 puppies. Feels Safe at Home: Yes Assistive Devices: None Allergies Allergies Allergy/AdvReac Type Severity Reaction Status Date / Time dog dander Allergy Verified 08/29/23 17:09 house dust mite Allergy Verified 08/29/23 17:09 clarithromycin AdvReac Mild METALLIC Verified 08/29/23 17:09 TASTE IN MOUTH Home Meds Home Medications Medication Instructions Recorded Confirmed fluticasone propionate 50 1 sprays intranasal BID 11/14/19 08/29/23 mcg/actuation nasal spray,suspension (Flonase Allergy Relief) levocetirizine 5 mg tablet (Xyzal) 5 mg PO PM Allergy Symptoms 11/14/19 08/29/23 montelukast 10 mg tablet 10 mg PO PM 11/14/19 08/29/23 (Singulair) metformin 500 mg tablet 1,000 mg PO AMPM 05/20/23 08/29/23 semaglutide 0.25 mg or 0.5 mg (2 0.5 mg subcut WK 05/20/23 08/29/23 mg/3 mL) subcutaneous pen injector (Ozempic) tamsulosin 0.4 mg capsule 0.4 mg PO AMHS 05/20/23 08/29/23 venlafaxine 75 mg capsule,extended See Rx Instructions .Route .COMPLEX 05/20/23 08/29/23 release 24 hr aspirin 81 mg tablet,delayed 81 mg PO DAILY 07/20/23 08/29/23 release (Adult Aspirin Regimen) amoxicillin 500 mg capsule 500 mg PO Q8H 08/29/23 08/29/23 methenamine hippurate 1 gram tablet 1 g PO DAILY PRN urinary issues 08/29/23 08/29/23 omega-3 fatty acids-vitamin E 1 cap PO PM 08/29/23 08/29/23 1,000 mg capsule venlafaxine 150 mg See Rx Instructions .Route .COMPLEX 08/29/23 08/29/23 capsule,extended release 24 hr Results & Data (ED) Vital Signs Vital Signs - 24 hr 08/29/23 12:59 08/29/23 13:50 08/29/23 14:00 Temperature 36.9 C Temperature Source Oral Pulse Rate 96 H 79 80 Pulse Rate [Right Finger] Pulse Rate from SpO2 Sensor 80 Pulse Rhythm [Right Finger] Pulse Strength [Right Finger] Respiratory Rate 20 19 22 Respiratory Effort / Characteristics Non-Labored Spontaneous Respiratory Depth Normal Respiratory Pattern Regular Blood Pressure 189/128 H Blood Pressure Mean 148 Blood Pressure Position Sitting Pulse Oximetry 99 98 Oxygen Delivery Method Room Air Room Air Sepsis Recent Fever Within 48 Hours No Sepsis New/Unexplained Change in Mental Status No Sepsis Action Taken by Nursing No Action Required 08/29/23 14:10 08/29/23 14:11 08/29/23 14:20 Temperature Temperature Source Pulse Rate 79 82 Pulse Rate [Right Finger] 80 Pulse Rate from SpO2 Sensor 82 Pulse Rhythm [Right Finger] Regular Pulse Strength [Right Finger] Normal Respiratory Rate 22 14 15 Respiratory Effort / Characteristics Non-Labored Spontaneous Respiratory Depth Normal Respiratory Pattern Regular Blood Pressure 140/100 Blood Pressure Mean 113 Blood Pressure Position Pulse Oximetry 96 97 Oxygen Delivery Method Room Air Room Air Sepsis Recent Fever Within 48 Hours Sepsis New/Unexplained Change in Mental Status Sepsis Action Taken by Nursing 08/29/23 14:21 08/29/23 14:50 08/29/23 15:00 Temperature Temperature Source Pulse Rate 78 76 73 Pulse Rate [Right Finger] Pulse Rate from SpO2 Sensor 79 76 72 Pulse Rhythm [Right Finger] Pulse Strength [Right Finger] Respiratory Rate 19 16 17 Respiratory Effort / Characteristics Respiratory Depth Respiratory Pattern Blood Pressure Blood Pressure Mean Blood Pressure Position Pulse Oximetry 97 97 96 Oxygen Delivery Method Room Air Sepsis Recent Fever Within 48 Hours Sepsis New/Unexplained Change in Mental Status Sepsis Action Taken by Nursing 08/29/23 15:10 08/29/23 15:20 08/29/23 15:30 Temperature Temperature Source Pulse Rate 79 92 H 76 Pulse Rate [Right Finger] Pulse Rate from SpO2 Sensor 79 84 75 Pulse Rhythm [Right Finger] Pulse Strength [Right Finger] Respiratory Rate 20 19 16 Respiratory Effort / Characteristics Respiratory Depth Respiratory Pattern Blood Pressure 165/98 H Blood Pressure Mean 120 Blood Pressure Position Pulse Oximetry 98 98 97 Oxygen Delivery Method Room Air Room Air Room Air Sepsis Recent Fever Within 48 Hours Sepsis New/Unexplained Change in Mental Status Sepsis Action Taken by Nursing 08/29/23 15:40 08/29/23 15:50 08/29/23 16:00 Temperature Temperature Source Pulse Rate 79 72 75 Pulse Rate [Right Finger] Pulse Rate from SpO2 Sensor 77 74 76 Pulse Rhythm [Right Finger] Pulse Strength [Right Finger] Respiratory Rate 20 20 15 Respiratory Effort / Characteristics Respiratory Depth Respiratory Pattern Blood Pressure Blood Pressure Mean Blood Pressure Position Pulse Oximetry 99 97 98 Oxygen Delivery Method Room Air Sepsis Recent Fever Within 48 Hours Sepsis New/Unexplained Change in Mental Status Sepsis Action Taken by Nursing 08/29/23 16:15 08/29/23 16:20 08/29/23 16:30 Temperature Temperature Source Pulse Rate 86 78 79 Pulse Rate [Right Finger] Pulse Rate from SpO2 Sensor 78 81 Pulse Rhythm [Right Finger] Pulse Strength [Right Finger] Respiratory Rate 21 18 17 Respiratory Effort / Characteristics Respiratory Depth Respiratory Pattern Blood Pressure Blood Pressure Mean Blood Pressure Position Pulse Oximetry 99 97 Oxygen Delivery Method Room Air Room Air Sepsis Recent Fever Within 48 Hours Sepsis New/Unexplained Change in Mental Status Sepsis Action Taken by Nursing 08/29/23 16:31 08/29/23 16:40 08/29/23 16:57 Temperature Temperature Source Pulse Rate 81 77 83 Pulse Rate [Right Finger] Pulse Rate from SpO2 Sensor 79 74 83 Pulse Rhythm [Right Finger] Pulse Strength [Right Finger] Respiratory Rate 17 16 17 Respiratory Effort / Characteristics Respiratory Depth Respiratory Pattern Blood Pressure 184/112 H Blood Pressure Mean 136 Blood Pressure Position Pulse Oximetry 98 97 99 Oxygen Delivery Method Room Air Room Air Room Air Sepsis Recent Fever Within 48 Hours Sepsis New/Unexplained Change in Mental Status Sepsis Action Taken by Nursing 08/29/23 17:00 08/29/23 17:10 08/29/23 17:20 Temperature Temperature Source Pulse Rate 79 87 83 Pulse Rate [Right Finger] Pulse Rate from SpO2 Sensor 79 88 78 Pulse Rhythm [Right Finger] Pulse Strength [Right Finger] Respiratory Rate 19 19 14 Respiratory Effort / Characteristics Respiratory Depth Respiratory Pattern Blood Pressure 173/108 H Blood Pressure Mean 129 Blood Pressure Position Pulse Oximetry 98 97 98 Oxygen Delivery Method Room Air Room Air Room Air Sepsis Recent Fever Within 48 Hours Sepsis New/Unexplained Change in Mental Status Sepsis Action Taken by Nursing 08/29/23 17:30 08/29/23 17:40 08/29/23 17:50 Temperature Temperature Source Pulse Rate 79 79 74 Pulse Rate [Right Finger] Pulse Rate from SpO2 Sensor 77 78 76 Pulse Rhythm [Right Finger] Pulse Strength [Right Finger] Respiratory Rate 21 17 15 Respiratory Effort / Characteristics Respiratory Depth Respiratory Pattern Blood Pressure 174/116 H Blood Pressure Mean 135 Blood Pressure Position Pulse Oximetry 97 96 96 Oxygen Delivery Method Room Air Room Air Room Air Sepsis Recent Fever Within 48 Hours Sepsis New/Unexplained Change in Mental Status Sepsis Action Taken by Nursing 08/29/23 18:00 08/29/23 18:03 08/29/23 18:10 Temperature Temperature Source Pulse Rate 77 77 75 Pulse Rate [Right Finger] Pulse Rate from SpO2 Sensor 75 77 76 Pulse Rhythm [Right Finger] Pulse Strength [Right Finger] Respiratory Rate 13 16 17 Respiratory Effort / Characteristics Respiratory Depth Respiratory Pattern Blood Pressure 165/105 H Blood Pressure Mean 125 Blood Pressure Position Pulse Oximetry 96 98 96 Oxygen Delivery Method Room Air Room Air Room Air Sepsis Recent Fever Within 48 Hours Sepsis New/Unexplained Change in Mental Status Sepsis Action Taken by Nursing 08/29/23 18:24 08/29/23 18:30 08/29/23 18:40 Temperature Temperature Source Pulse Rate 80 76 75 Pulse Rate [Right Finger] Pulse Rate from SpO2 Sensor 72 Pulse Rhythm [Right Finger] Pulse Strength [Right Finger] Respiratory Rate 24 18 19 Respiratory Effort / Characteristics Respiratory Depth Respiratory Pattern Blood Pressure Blood Pressure Mean Blood Pressure Position Pulse Oximetry 97 97 Oxygen Delivery Method Room Air Room Air Sepsis Recent Fever Within 48 Hours Sepsis New/Unexplained Change in Mental Status Sepsis Action Taken by Nursing Laboratory Data 11/05/23 14:14 08/29/23 14:14 Lab Results 08/29/23 08/29/23 08/29/23 Range/Units 14:14 16:55 18:45 WBC 7.09 (4.8-10.8) K/ul RBC 4.81 (4.70-6.10) M/uL Hgb 13.6 L (14.0-18.0) g/dl Hct 42.1 (42.0-52.0) % MCV 87.5 (80.0-100.0) fL MCH 28.3 (25.0-34.0) pg MCHC 32.3 (32.0-36.0) g/dL RDW Std Deviation 42.4 (36.4-46.3) fL RDW Coeff of [place] 13.2 (11.5-14.5) % Plt Count 256 (130-400) K/uL MPV 9.8 (9.4-12.4) fL Immature Gran % (Auto) 0.4 % Neut % (Auto) 61.5 % Lymph % (Auto) 30.5 % [place] % (Auto) 5.2 % Eos % (Auto) 2.0 % Baso % (Auto) 0.4 % Neut # (Auto) 4.36 (1.40-6.50) K/uL Lymph # (Auto) 2.16 (1.20-3.40) K/uL [place] # (Auto) 0.37 (0.11-0.59) K/uL Eos # (Auto) 0.14 (0.00-0.50) K/uL Baso # (Auto) 0.03 (0.00-0.20) K/uL Immature Gran # (Auto) 0.03 (0.01-0.20) K/uL Sodium 137 (136-145) mmol/L Potassium 3.6 (3.5-5.1) mmol/L Chloride 102 (98-107) mmol/L Carbon Dioxide 28 (21-32) mmol/L Anion Gap 7 (3-11) BUN 11 (6-23) mg/dl Creatinine 0.94 (0.6-1.4) mg/dl Est Cr Clr Drug Dosing 137.7 ml/min Est GFR ( Amer) 110.7 ml/min Est GFR (Non-Af Amer) 95.5 ml/min BUN/Creatinine Ratio 11.7 (10-20) Glucose 148 H (70-99(Fasting)) mg/dl POC Glucose 97 (70-99) mg/dl Lactate 1.5 (0.4-2.0) mmol/L Calcium 9.1 (8.6-10.3) mg/dl Magnesium 2.1 (1.7-2.4) mg/dl C-Reactive Protein 1.78 H (0-0.5) mg/dl Procalcitonin < 0.05 (0-0.5) ng/ml Urine Color Yellow Urine Appearance Clear (Clear) Urine pH 7.0 (4.5-7.5) Ur Specific [place] > 1.045 H (1.000-1.030) Urine Protein Negative (Negative) Urine Glucose (UA) Negative (Negative) Urine Ketones Negative (Negative) Urine Blood Negative (Negative) Urine Nitrite Negative (Negative) Urine Bilirubin Negative (Negative) Urine Urobilinogen Negative (Negative) Ur Leukocyte Esterase Negative (Negative) Administered Medications Discontinued Medications Hydromorphone HCl (Hydromorphone Inj 1 Mg/Ml Syringe) 1 mg IV NOW STA Stop: 08/29/23 16:46 Last Admin: 08/29/23 16:53 Dose: 1 mg Documented By: FREE LANCE ARTIST Sodium Chloride (Nss) 1,000 mls @ 999 mls/hr IV .Q1H1M ONE Stop: 08/29/23 14:32 Last Infusion: 08/29/23 15:55 Dose: Infused Documented By: FREE LANCE ARTIST Admin: 08/29/23 14:21 Dose: 999 mls/hr Documented By: FREE LANCE ARTIST Ampicillin Sodium/Sulbactam Sodium 3,000 mg/ Sodium Chloride 100 mls @ 200 mls/hr IV NOW STA Stop: 08/29/23 17:06 Last Infusion: 08/29/23 18:23 Dose: Infused Documented By: Admin: 08/29/23 17:45 Dose: 200 mls/hr Documented By: FREE LANCE ARTIST Ioversol (Optiray 320 100ml) 90 ml IV ONCE ONE Stop: 08/29/23 16:09 Last Admin: 08/29/23 16:09 Dose: 90 ml Documented By: BRIGIDA Ketorolac Tromethamine (Ketorolac 30 Mg/Ml Vial) 30 mg IV NOW STA Stop: 08/29/23 13:33 Last Admin: 08/29/23 14:21 Dose: 30 mg Documented By: FREE LANCE ARTIST Imaging Data Radiologist's Impression: Pelvis CT 08/29/23 13:32 CT pelvis w/IV con only CLINICAL HISTORY: penial infeciton, suprapubic/rt groin swelling TECHNIQUE: Helical axial images of the pelvis were obtained and displayed at 5 and 1 mm intervals. Automated dose lowering techniques and/or adjustment according to patient size were utilized for this exam. This exam was performed with intravenous contrast. CT DOSE: 1162.52 mGy.cm COMPARISON: Comparison is made to CT abdomen pelvis 05/19/2018 FINDINGS: Bladder: Limited evaluation due to underdistention. Bowel wall thickening is noted. Reproductive organs: Prostatomegaly is seen. Bowel: Diverticulosis is seen without evidence of diverticulitis. The appendix is normal. Lymph nodes Pelvic: Enlarged right inguinal lymph node measures 21 mm in short axis. There is surrounding fat stranding. Mesenteric: Unremarkable. Peritoneum: Normal Vessels: Unremarkable. Abdominal wall: Right greater than left suprapubic fat stranding is seen. Bones: Degenerative changes in the visualized spine. IMPRESSION: 1. Suprapubic fat stranding is seen compatible with cellulitis, right greater than left. Right-sided inguinal lymphadenopathy is seen which is likely reactive. 2. Diverticulosis without diverticulitis. ACT 112: Negative or not required by law. Electronically signed by: Guero Wilson M.D. 08/29/2023 4:31 PM Toe X-Ray 08/29/23 13:32 XR toe(s) LT min 2V CLINICAL HISTORY: great toe swelling/redness TECHNIQUE: 3 views of the left first digit were obtained. Comparison: None available at the time of this dictation. FINDINGS: There is no evidence of an acute fracture. Joint spaces are well-preserved. No soft tissue abnormality is seen. IMPRESSION: No evidence of acute osseous injury. ACT 112: Negative or not required by law. Electronically signed by: Guero Wilson M.D. 08/29/2023 2:56 PM Discharge Plan Visit Data Chief Complaint: Infection Stated Complaint: STAPH INFECTION ABDOMEN, LEFT LEG PAIN ED Provider: Ralph Lawson Discharge Problem: Cellulitis of perineum, Abrasion of penis with infection, Infection of scrotum, Acute gout involving toe of left foot Forms Stand Alone Forms: My [facility] Shout Prescriptions Prescriptions: No Action montelukast [Singulair] 10 mg tablet 10 mg PO PM levocetirizine [Xyzal] 5 mg tablet 5 mg PO PM fluticasone propionate [Flonase Allergy Relief] 50 mcg/actuation spray,suspension 1 sprays INTNAS BID aspirin [Adult Aspirin Regimen] 81 mg tablet,delayed release (DR/EC) 81 mg PO DAILY venlafaxine 75 mg capsule,extended release 24hr See Rx Instructions .ROUTE .COMPLEX Rx Instructions: Take 75mg capsule w/ 150mg capsules once every evening for a total dose of 225mg tamsulosin 0.4 mg capsule 0.4 mg PO AMHS metformin 500 mg tablet 1,000 mg PO AMPM Ozempic 0.25 mg or 0.5 mg (2 mg/3 mL) pen injector 0.5 mg SUBCUT WK Rx Instructions: Wednesday amoxicillin 500 mg capsule 500 mg PO Q8H Rx Instructions: Start Date 08/28/23 - End Date 09/07/23: As of 08/29/23 @1618 - Pt has taken 3 doses. venlafaxine 150 mg capsule,extended release 24hr See Rx Instructions .ROUTE .COMPLEX Rx Instructions: Take 150mg capsule w/ 75mg capsules once every evening for a total dose of 225mg methenamine hippurate 1 gram tablet 1 g PO DAILY PRN (Reason: urinary issues) Fish Oil 1,000 mg Capsule 1 cap PO PM Referrals Referrals: Chacorta Ulrich DO [Primary Care Provider] - Discharge Problem: Abrasion of penis with infection Qualifiers: Encounter type: initial encounter Qualified Code(s): S30.812A - Abrasion of penis, initial encounter Acute gout involving toe of left foot Qualifiers: Gout etiology: unspecified cause Qualified Code(s): M10.9 - Gout, unspecified
[2023-08-29 14:44] LABS: Basophils # (auto) 0.03 K/uL (0.00-0.20); Basophils % (auto) 0.4 %; Eosinophils # (auto) 0.14 K/uL (0.00-0.50); Hematocrit (blood only) 42.1 % (42.0-52.0); Hemoglobin 13.6 g/dl (14.0-18.0); Immature Granulocytes # (auto) 0.03 K/uL (0.01-0.20); Immature Granulocytes % (auto) 0.4 %; Lymphocytes # (auto) 2.16 K/uL (1.20-3.40); Lymphocytes % (auto) 30.5 %; Mean Corpuscular Hemoglobin 28.3 pg (25.0-34.0); Mean Corpuscular Hgb Conc 32.3 g/dL (32.0-36.0); Mean Corpuscular Volume 87.5 fL (80.0-100.0); Mean Platelet Volume 9.8 fL (9.4-12.4); Monocytes # (auto) 0.37 K/uL (0.11-0.59); Monocytes % (auto) 5.2 %; Neutrophils # (auto) 4.36 K/uL (1.40-6.50); Neutrophils % (auto) 61.5 %; Platelet Count 256 K/uL (130-400); RDW Coefficient of Variation 13.2 % (11.5-14.5); RDW Standard Deviation 42.4 fL (36.4-46.3); Red Blood Count 4.81 M/uL (4.70-6.10); White Blood Count 7.09 K/ul (4.8-10.8)
--- NOTE | 2023-08-29 14:57 | XRay Report ---
XR toe(s) LT min 2V CLINICAL HISTORY: great toe swelling/redness TECHNIQUE: 3 views of the left first digit were obtained. Comparison: None available at the time of this dictation. FINDINGS: There is no evidence of an acute fracture. Joint spaces are well-preserved. No soft tissue abnormalit y is seen. IMPRESSION: No evidence of acute osseous injury. ACT 112: Negative or not required by law. Electronically signed by: Guero Wilson M.D. 08/29/2023 2:56 PM
[2023-08-29 14:58] LABS: BUN Creatinine Ratio 11.7 (10-20); C Reactive Protein 1.78 mg/dl (0-0.5); Calcium 9.1 mg/dl (8.6-10.3); Creatinine Clr Calc Pharmacy 137.7 ml/min; Est GFR (African American) 110.7 ml/min; Est GFR (Non-African American) 95.5 ml/min; Magnesium 2.1 mg/dl (1.7-2.4); Potassium 3.6 mmol/L (3.5-5.1)
[2023-08-29] MEDS ORDERED: OPTIRAY 320 100ml IV ONE (16:08)
--- NOTE | 2023-08-29 16:33 | CT Scan Report ---
CT pelvis w/IV con only CLINICAL HISTORY: penial infeciton, suprapubic/rt groin swelling TECHNIQUE: Helical axial images of the pelvis were obtained and displayed at 5 and 1 mm intervals. Au tomated dose lowering techniques and/or adjustment according to patient size were utilized for this e xam. This exam was performed with intravenous contrast. CT DOSE: 1162.52 mGy.cm COMPARISON: Comparison is made to CT abdomen pelvis 05/19/2018 FINDINGS: Bladder: Limited evaluation due to underdistention. Bowel wall thickening is noted. Reproductive organs: Prostatomegaly is seen. Bowel: Diverticulosis is seen without evidence of diverticulitis. The appendix is normal. Lymph nodes Pelvic: Enlarged right inguinal lymph node measures 21 mm in short axis. There is surrounding fat str anding. Mesenteric: Unremarkable. Peritoneum: Normal Vessels: Unremarkable. Abdominal wall: Right greater than left suprapubic fat stranding is seen. Bones: Degenerative changes in the visualized spine. IMPRESSION: 1. Suprapubic fat stranding is seen compatible with cellulitis, right greater than left. Right-sided inguinal lymphadenopathy is seen which is likely reactive. 2. Diverticulosis without diverticulitis. ACT 112: Negative or not required by law. Electronically signed by: Guero Wilson M.D. 08/29/2023 4:31 PM
[2023-08-29] MEDS ORDERED: AMPICILLIN/SULBACTAM SOD 3,000 MG in SODIUM CHLOR 0.9% MINI-B 100 ML IV STA (16:37)
[2023-08-29] MEDS ORDERED: HYDROmorphone INJ 1 MG/ML SYRINGE IV STA (16:45)
--- NOTE | 2023-08-29 17:07 | History & Physical Report ---
Date of Service August 29, 2023 Assessment & Plan (1) Abrasion of penis with infection: Plan: -Admit to med/surge -Currently stable and non-toxic appearing -Patient developed progressive penile, scrotal, and suprapubic pain, erythema, and swelling after initially cutting the head of his penis on a UA collection cup approximately 2 weeks ago -Was started on PO Amoxicillin by [place] [facility] on 08/28, patient took 3 doses prior to arrival -Will call [facility] to see if they can fax culture results -He is non-toxic on exam, WBC WNL, procal negative, UA negative, but with elevated CRP and signs of inflammation/cellulitis on CT of the Pelvis -Patient is without signs of gas-producing organism on physical exam and CT of the pelvis with con -ED staff spoke with Urology who will evaluate the patient tonight or tomorrow, recommends observation with IV unasyn for now -Will continue with Unasyn as it will cover and left great toe infection -Blood cultures and UA were collected prior to antibiotics -PRN tylenol and morphine for pain -Hold chemical DVT PPX for now in case OR would be needed, BL SCD's for now -DMII/HH diet -AM CBC, CMP, Mag, PT/INR (2) Cellulitis of left toe: Plan: -Patient with erythema, swelling, and tenderness of the left great toe -Patient removed medial half of the left great toenail as he thought he had a hangnail -No current drainage, xray negative for osseous involvement -No signs of proximally swelling to suggest gout/pseudogout at this time -Continue unasyn for now; if toe does not improve on unasyn consider adding MRSA coverage -Continue pain control with tylenol and morphine (3) DMII (diabetes mellitus, type 2): Plan: -Hold metformin and ozempic -Monitor BSG ACHS goal is 110-140 -Start CF of 50 ACHS for now -DMII/HH diet -Adjust regimen as needed (4) Depression: Plan: -Continue Venlafaxine (5) BPH with obstruction/lower urinary tract symptoms: Plan: -Continue flomax Plan The patient was discussed with Dr. Camejo at the time of the admission History of Present Illness Chief Complaint: Pelvic and left toe pain Primary Care Provider: DO Luis Armando Rodriguez is a 48 year old male with a PMH significant for DMII, kidney stone disease, BPH, and anxiety who presented to the [facility] ED on 08/29 for multiple complaints including progressive penile/pelvic swelling and discomfort and left great toe pain/inflammation. He remained stable in the ED. Labs including CBC, CMP, procal, and CRP were significant for a CRP of 1.78. Xray of the left toe was negative for fracture or osseous involvement. Pelvis CT w/IV con read as "1. Suprapubic fat stranding is seen compatible with cellulitis, right greater than left. Right-sided inguinal lymphadenopathy is seen which is likely reactive. 2. Diverticulosis without diverticulitis.". The ED spoke with Urology due to concern for rapidly developing scrotal/pelvic swelling and inflammation. While his WBC and procal were WNL and Pelvis CT was negative for signs of gas, Urology agreed with admission/observation on IV Unasyn to ensure the patient's infection does not progress. Prior to admission the patient had blood/Urine cultures obtained and was ordered a dose of Unasyn, 30 mg IV toradol, 1mg IV Dilaudid, and 1L NSS. At the time of the exam the patient was sitting in bed in no acute distress. He states that he was seen for yearly follow up at the [facility] clinic approximately 2 weeks ago. He gave them a UA during his appointment and states that he accidentally cut the left side of the head of his penis on the UA cup while providing a sample. A few days later that patient developed a small ulcer at the site of his cut. He thought he was developing a fungal infection and started to apply a topical antifungal cream without improvement. On 09/01 he noticed some white pustules on the head of his penis and went to the [place] walk in clinic for evaluation. They took a swab of the infected area of his penis and called him 48 hours later stating that he was growing strep on the culture. They prescribed him Amoxicillin, he has taken 3 doses as of ED arrival. He states that he presented to the ED today as he has had progressive scrotal, penile, and suprapubic pain. He denies fever, chest pain, SOB, abd pain, nausea, vomiting, hematuria, melena, diarrhea, LE swelling and recent trauma. He adds that he started to develop pain in the left great toe at the beginning of the week. He thought he was developing an in-grown toenail; because of this he removed the medial half of the left great toenail but his pain and swelling has progressed. Since receiving a dose of dilaudid his pain is now controlled. Please refer to Dr. Camejo's attestation for any changes to the treatment plan Allergies Allergy/AdvReac Type Severity Reaction Status Date / Time dog dander Allergy Verified 08/29/23 17:09 house dust mite Allergy Verified 08/29/23 17:09 clarithromycin AdvReac Mild METALLIC Verified 08/29/23 17:09 TASTE IN MOUTH Home Medications Medication Instructions Recorded Confirmed Type fluticasone propionate 50 1 sprays intranasal BID 11/14/19 08/29/23 History mcg/actuation nasal spray,suspension (Flonase Allergy Relief) levocetirizine 5 mg tablet (Xyzal) 5 mg PO PM Allergy Symptoms 11/14/19 08/29/23 History montelukast 10 mg tablet 10 mg PO PM 11/14/19 08/29/23 History (Singulair) metformin 500 mg tablet 1,000 mg PO AMPM 05/20/23 08/29/23 History semaglutide 0.25 mg or 0.5 mg (2 0.5 mg subcut WK 05/20/23 08/29/23 History mg/3 mL) subcutaneous pen injector (Ozempic) tamsulosin 0.4 mg capsule 0.4 mg PO AMHS 05/20/23 08/29/23 History venlafaxine 75 mg capsule,extended See Rx Instructions .Route .COMPLEX 05/20/23 08/29/23 History release 24 hr aspirin 81 mg tablet,delayed 81 mg PO DAILY 07/20/23 08/29/23 History release (Adult Aspirin Regimen) amoxicillin 500 mg capsule 500 mg PO Q8H 08/29/23 08/29/23 History methenamine hippurate 1 gram tablet 1 g PO DAILY PRN urinary issues 08/29/23 08/29/23 History omega-3 fatty acids-vitamin E 1 cap PO PM 08/29/23 08/29/23 History 1,000 mg capsule venlafaxine 150 mg See Rx Instructions .Route .COMPLEX 08/29/23 08/29/23 History capsule,extended release 24 hr Past Med/Surg History Medical History (Updated 08/29/23 @ 17:53 by Phan Dugan PA-C) BPH with obstruction/lower urinary tract symptoms Kidney stones Depression Diabetes Recurrent nephrolithiasis Surgical History Previous back surgery 02/2010 Social History Smoking Status: Never smoker Hx Alcohol Use: No Hx Substance Use: No Preferred Language: Iraqi Communication Ability: Effective Welfare Eligibility Worker Required: No Beliefs That Will Affect Care: Judaism Judaism Beliefs: Methedist Current Living Situation: Family Current Living Situation Comment: Lives at home with , 2 kids, and 2 puppies. Feels Safe at Home: Yes Assistive Devices: None Physical Exam Physical Exam: Physical Exam: General: In no acute distress, stated age, well-nourished, good hygiene, non- toxic appearing HEENT: Normocephalic, atraumatic, no scleral icterus, pupils around round, symmetrical, and reactive to light, moist mucus membranes, trachea midline, no thyromegaly Chest/Pulm: No respiratory distress, symmetrical chest expansion, clear breath sounds throughout Cardiac: RRR, no murmurs noted Abdomen: Negative for ascites and bruising, normoactive bowel sounds, soft, non-tender to palpation throughout : Patient with multiple white pustules without drainage on the head of the penis, no signs of drainage of the penis, no significant swelling noted on inspection and palpation of the scrotum and testicles, patient with mild- moderate pain on palpation of the BL testicles, tenderness to palpation of the suprapubic region Musculoskeletal: Left great toe with medial aspect of the toenail removed without signs of drainage, patient does have erythema and swlling of the distal aspect of the left great toe, no swelling or erythema on the proximal aspect of the great left toe, patient with intact ROM of the BL feet and toes Extremities: Radial, dorsalis pedis, and posterior tibial pulses are intact and symmetrical, no edema noted in the BL LE's Skin: As described above Neuro: Alert and oriented to person, place, month, year, and president, no focal defects,no tremors noted Psych: No acute distress, calm and cooperative during the exam Results & Data Results & Data Vital Signs (Past 12 Hours) Vital Signs Temp Pulse Pulse Resp BP Pulse Ox O2 Del Method 08/29/23 15:50 72 20 97 08/29/23 15:40 79 20 99 08/29/23 15:30 76 16 165/98 H 97 Room Air 08/29/23 15:20 92 H 19 98 Room Air 08/29/23 15:10 79 20 98 Room Air 08/29/23 15:00 73 17 96 Room Air 08/29/23 14:50 76 16 97 08/29/23 14:21 78 19 97 08/29/23 14:20 82 15 140/100 97 Room Air 08/29/23 14:11 80 14 96 Room Air 08/29/23 14:10 79 22 08/29/23 14:00 80 22 08/29/23 13:50 79 19 98 Room Air 08/29/23 12:59 36.9 C 96 H 20 189/128 H 99 Room Air Laboratory Results Abnormal lab results 08/29/23 08/29/23 Range/Units 14:14 16:55 Hgb 13.6 L (14.0-18.0) g/dl Glucose 148 H (70-99(Fasting)) mg/dl C-Reactive Protein 1.78 H (0-0.5) mg/dl Ur Specific [place] > 1.045 H (1.000-1.030) Diagnostic Findings Pelvis CT 08/29/23 13:32 CT pelvis w/IV con only CLINICAL HISTORY: penial infeciton, suprapubic/rt groin swelling TECHNIQUE: Helical axial images of the pelvis were obtained and displayed at 5 and 1 mm intervals. Automated dose lowering techniques and/or adjustment according to patient size were utilized for this exam. This exam was performed with intravenous contrast. CT DOSE: 1162.52 mGy.cm COMPARISON: Comparison is made to CT abdomen pelvis 05/19/2018 FINDINGS: Bladder: Limited evaluation due to underdistention. Bowel wall thickening is noted. Reproductive organs: Prostatomegaly is seen. Bowel: Diverticulosis is seen without evidence of diverticulitis. The appendix is normal. Lymph nodes Pelvic: Enlarged right inguinal lymph node measures 21 mm in short axis. There is surrounding fat stranding. Mesenteric: Unremarkable. Peritoneum: Normal Vessels: Unremarkable. Abdominal wall: Right greater than left suprapubic fat stranding is seen. Bones: Degenerative changes in the visualized spine. IMPRESSION: 1. Suprapubic fat stranding is seen compatible with cellulitis, right greater than left. Right-sided inguinal lymphadenopathy is seen which is likely reactive. 2. Diverticulosis without diverticulitis. ACT 112: Negative or not required by law. Electronically signed by: Guero Wilson M.D. 08/29/2023 4:31 PM Toe X-Ray 08/29/23 13:32 XR toe(s) LT min 2V CLINICAL HISTORY: great toe swelling/redness TECHNIQUE: 3 views of the left first digit were obtained. Comparison: None available at the time of this dictation. FINDINGS: There is no evidence of an acute fracture. Joint spaces are well-preserved. No soft tissue abnormality is seen. IMPRESSION: No evidence of acute osseous injury. ACT 112: Negative or not required by law. Electronically signed by: Guero Wilson M.D. 08/29/2023 2:56 PM Code Status & VTE Plan Code Status Full code VTE Prophylaxis Plan VTE Prophylaxis will be ordered: Yes PG Care Time/CCT Total # of Minutes Spent Total Time Spent with Patient: Total time spent is greater than 50% in coordination of care (as documented) at patient's floor/unit and/or counseling patient: Coding [place] [address] INT INP/OBS CARE 2/55MIN Patient Type Established History Comprehensive Exam Comprehensive Medical Decision Making Moderate Complexity Diagnoses Abrasion of penis with infection S30.812A; N48.29 Encounter type: initial encounter Cellulitis of left toe L03.032 DMII (diabetes mellitus, type 2) E11.9 Depression F32.9 BPH with obstruction/lower urinary tract symptoms N40.1; N13.8 (1) Abrasion of penis with infection Encounter type: initial encounter Qualified Code(s): S30.812A - Abrasion of penis, initial encounter; N48.29 - Other inflammatory disorders of penis
[2023-08-29 17:18] LABS: Appearance Urine Clear (Clear); Bilirubin Urine Negative (Negative); Blood Urine Negative (Negative); Color Urine Yellow; Glucose Urine UA Negative (Negative); Ketones Urine Negative (Negative); Leukocyte Esterase Urine Negative (Negative); Nitrite Urine Negative (Negative); Protein Urine Negative (Negative); Specific Gravity Urine > 1.045 (1.000-1.030); Urobilinogen Urine Negative (Negative)
[2023-08-29] MEDS ORDERED: CARBOHYDRATES FOR HYPOGLYCEMIA PO PRN (17:37)
[2023-08-29] MEDS ORDERED: GLUCAGON FOR INJ 1 MG VIAL SQ PRN (17:37)
[2023-08-29] MEDS ORDERED: GLUCOSE 40% GEL 15 GM TUBE PO PRN (17:37)
[2023-08-29] MEDS ORDERED: DEXTROSE 50% 50 ML SYRINGE IV PRN (17:37)
[2023-08-29] MEDS ORDERED: GLUCOSE 10 TAB/TUBE PO PRN (17:37)
[2023-08-29] MEDS ORDERED: MoRPHine SULFATE 2 MG/ML CARP IV PRN (17:44)
[2023-08-29] MEDS: INSULIN ASPART PER UNIT CHARGE SC SCH (21:12)
[2023-08-29] MEDS: VENLAFAXINE HCL XR 150 MG CAPXR PO SCH (21:32)
[2023-08-29] MEDS: TAMSULOSIN HCL 0.4 MG CAP PO SCH (21:33)
[2023-08-29] MEDS: VENLAFAXINE HCL XR 75 MG CAPXR PO SCH (21:33)
[2023-08-29] MEDS: ACETAMINOPHEN 325 MG TAB PO PRN (21:56)
[2023-08-29] MEDS: POTASSIUM CITRATE 10 MEQ TAB PO SCH (21:57)
[2023-08-29] MEDS ORDERED: diphenhydrAMINE Capsule 25 MG CAP PO ONE (22:12)
[2023-08-29] MEDS: AMPICILLIN/SULBACTAM SOD 3,000 MG in SODIUM CHLOR 0.9% MINI-B 100 ML IV SCH (23:15)
[2023-08-30] MEDS: ACETAMINOPHEN 325 MG TAB PO PRN ×2 (04:36→11:12)
[2023-08-30] MEDS: AMPICILLIN/SULBACTAM SOD 3,000 MG in SODIUM CHLOR 0.9% MINI-B 100 ML IV SCH ×3 (05:52→17:44)
[2023-08-30 07:59] LABS: Basophils # (auto) 0.04 K/uL (0.00-0.20); Basophils % (auto) 0.5 %; Eosinophils # (auto) 0.14 K/uL (0.00-0.50); Eosinophils % (auto) 1.9 %; Hematocrit (blood only) 37.6 % (42.0-52.0); Hemoglobin 11.9 g/dl (14.0-18.0); Immature Granulocytes # (auto) 0.04 K/uL (0.01-0.20); Immature Granulocytes % (auto) 0.5 %; Lymphocytes # (auto) 2.26 K/uL (1.20-3.40); Lymphocytes % (auto) 30.6 %; Mean Corpuscular Hgb Conc 31.6 g/dL (32.0-36.0); Mean Corpuscular Volume 88.5 fL (80.0-100.0); Mean Platelet Volume 9.7 fL (9.4-12.4); Monocytes % (auto) 5.4 %; Neutrophils # (auto) 4.51 K/uL (1.40-6.50); Neutrophils % (auto) 61.1 %; Platelet Count 235 K/uL (130-400); RDW Coefficient of Variation 13.4 % (11.5-14.5); Red Blood Count 4.25 M/uL (4.70-6.10); White Blood Count 7.39 K/ul (4.8-10.8)
[2023-08-30 08:24] LABS: Albumin Globulin Ratio 1.3 (0.9-2); Albumin Level 3.6 gm/dl (3.4-5.0); BUN Creatinine Ratio 11.5 (10-20); Bilirubin,Total 0.6 mg/dl (0.2-1.0); Calcium 8.5 mg/dl (8.6-10.3); Creatinine Clr Calc Pharmacy 134.7 ml/min; Est GFR (African American) 107.9 ml/min; Est GFR (Non-African American) 93.1 ml/min; Globulin 2.8 gm/dl (2.5-4.0); Potassium 4.6 mmol/L (3.5-5.1); Total Protein 6.4 gm/dl (6.0-8.3)
[2023-08-30] MEDS: POTASSIUM CITRATE 10 MEQ TAB PO SCH ×2 (08:30→19:50)
[2023-08-30] MEDS: TAMSULOSIN HCL 0.4 MG CAP PO SCH ×2 (08:31→19:50)
[2023-08-30] MEDS: ASPIRIN 81 MG ECTAB PO SCH (08:31)
[2023-08-30] MEDS: INSULIN ASPART PER UNIT CHARGE SC SCH ×4 (08:32→19:45)
--- NOTE | 2023-08-30 09:24 | Urology Consultation ---
Date of Consultation August 30, 2023 Assessment & Plan (1) Abrasion of penis with infection: 48 yo M admitted for pelvic infection and left toe cellulitis. - Patient afebrile and hemodynamically stable - Today's labs - creatinine 0.96, WBC 7.39, Hgb 11.9 - UA on arrival was not suggestive of infection - He had 3 doses of Amoxicillin prior to arrival - Blood cultures are pending - Continue with IV Unasyn for now and follow cultures - CT reviewed and showed suprapubic fat stranding, no evidence of abscess - No acute intervention warranted at this time - Recommend STI panel due to lesions of the foreskin - Continue antibiotics and supportive care for now - Recommend f/u with Dr. Owens after hospitalization - will follow peripherally History of Present Illness Reason for Consultation: Pelvic infection Attending Physician: [place] History of Present Illness This is a 48-year-old male with past medical history of type 2 diabetes, BPH with obstruction, recurrent nephrolithiasis, urethral stricture and fracture dislocation of the ankle joint status post ORIF who presented to the emergency department on 08/29/2023 with worsening penile pain as well as left foot pain. Patient follows with Dr. Juanjose Owens, [facility], for BPH with obstruction, urethral strictures and recurrent nephrolithiasis. He reports he had a urology follow-up 2 weeks ago. He gave a urine sample at his urology visit and thinks he may have lacerated his penis on the specimen cup. He subsequently developed penile discomfort/swelling and white pustule lesions on his penis. He tried topical antifungal at home without improvement. He presented to urgent care for further evaluation and a swab was of the lesions w as obtained. Per patient, the culture grew out Streptococcus species and he was started on Amoxicillin. He developed worsening penile and pelvic discomfort as well as left foot pain prompting ER evaluation. On arrival to ED, he was afebrile, hypertensive but otherwise stable vitals. Lab work showed creatinine 0.94, WBC 7.09, hemoglobin 13.6. Urinalysis showed specific gravity >1.045, otherwise negative. CT pelvis with contrast reviewed and showed suprapubic fat stranding, right greater than left, right-sided inguinal lymphadenopathy. No abscess or fluid collection noted. He was treated with IV fluids, Unasyn, ketorolac and hydromorphone in the emergency department. He was admitted to the hospital medicine service for further evaluation. Patient subjectively feeling better since arrival. He reports some ongoing pelvic/suprapubic discomfort and occasional burning sensation of his penis. No scrotal discomfort. He is voiding spontaneously. No dysuria or hematuria. He reports he does perform CIC about twice per week. He reports joint aches and ongoing left foot discomfort and throbbing. No nausea or vomiting. No fever or chills. Allergies Allergy/AdvReac Type Severity Reaction Status Date / Time dog dander Allergy Verified 08/29/23 17:09 house dust mite Allergy Verified 08/29/23 17:09 clarithromycin AdvReac Mild METALLIC Verified 08/29/23 17:09 TASTE IN MOUTH Home Medications Medication Instructions Recorded Confirmed Type fluticasone propionate 50 1 sprays intranasal BID 11/14/19 08/29/23 History mcg/actuation nasal spray,suspension (Flonase Allergy Relief) levocetirizine 5 mg tablet (Xyzal) 5 mg PO PM Allergy Symptoms 11/14/19 08/29/23 History montelukast 10 mg tablet 10 mg PO PM 11/14/19 08/29/23 History (Singulair) metformin 500 mg tablet 1,000 mg PO AMPM 05/20/23 08/29/23 History semaglutide 0.25 mg or 0.5 mg (2 0.5 mg subcut WK 05/20/23 08/29/23 History mg/3 mL) subcutaneous pen injector (Ozempic) tamsulosin 0.4 mg capsule 0.4 mg PO AMHS 05/20/23 08/29/23 History venlafaxine 75 mg capsule,extended See Rx Instructions .Route .COMPLEX 05/20/23 08/29/23 History release 24 hr aspirin 81 mg tablet,delayed 81 mg PO DAILY 07/20/23 08/29/23 History release (Adult Aspirin Regimen) amoxicillin 500 mg capsule 500 mg PO Q8H 08/29/23 08/29/23 History methenamine hippurate 1 gram tablet 1 g PO DAILY PRN urinary issues 08/29/23 08/29/23 History omega-3 fatty acids-vitamin E 1 cap PO PM 08/29/23 08/29/23 History 1,000 mg capsule venlafaxine 150 mg See Rx Instructions .Route .COMPLEX 08/29/23 08/29/23 History capsule,extended release 24 hr amoxicillin 875 mg-potassium 1 tab PO BID #14 tabs 08/31/23 Rx clavulanate 125 mg tablet hydrocortisone 0.5 % topical cream 1 applic topical BID #28.4 grams 08/31/23 Rx nystatin 100,000 unit/gram topical 1 applic topical BID #15 grams 08/31/23 Rx ointment Patient History Medical History BPH with obstruction/lower urinary tract symptoms Kidney stones Depression Diabetes Recurrent nephrolithiasis Surgical History Previous back surgery 02/2010 Social History Smoking Status: Never smoker Do You Dip or Chew Tobacco: No; Hx Alcohol Use: Yes Alcohol type: beer Hx Substance Use: No Preferred Language: Irish Communication Ability: Effective Electronics System Mechanic Required: No Beliefs That Will Affect Care: None Current Living Situation: Spouse Current Living Situation Comment: Lives at home with , 2 kids, and 2 puppies. Feels Safe at Home: Yes Safety Concerns: Feels Safe At This Time Assistive Devices: Cane, Walker, Wheelchair and Other Review of Systems Review of Systems: All systems reviewed & are unremarkable except as noted in HPI & below Physical Exam Constitutional: + obese; no acute distress Eyes: no scleral abnormality Neck: normal visual inspection Respiratory: normal respiratory effort; no respiratory distress Cardiovascular: Extremities: no pedal edema Gastrointestinal (Abdomen): Inspection/Auscultation: abdomen normal to inspection; abdomen not distended Percussion/Palpation: abdomen soft; abdomen nontender Musculoskeletal: Head/Neck/Chest: normocephalic Psychiatric: Orientation: alert and oriented x 3 Genitourinary: Mild tenderness to palpation of the suprapubic region, no erythema or crepitus. Uncircumcised/buried penis with two brown colored wart-like lesions on the right foreskin, additional small white lesions scattered on the foreskin when retracted, no significant erythema or drainage noted. Scrotum without significant edema or erythema, no induration. Results & Data Vital Signs (Past 12 Hours) Vital Signs Temp Pulse Resp BP Pulse Ox O2 Del Method 08/30/23 07:16 36.8 C 76 18 143/86 H 97 Room Air PG Care Time/CCT Total # of Minutes Spent Total Time Spent with Patient: Total time spent is greater than 50% in coordination of care (as documented) at patient's floor/unit and/or counseling patient: Coding Level of Care Code 31455 IN/OBS CONSULT LVL 4,60M Diagnoses Abrasion of penis with infection S30.812A; N48.29 Encounter type: initial encounter (1) Abrasion of penis with infection Encounter type: initial encounter Qualified Code(s): S30.812A - Abrasion of penis, initial encounter; N48.29 - Other inflammatory disorders of penis
--- NOTE | 2023-08-30 13:02 | Electrocardiogram Report ---
Test Reason : Blood Pressure : / mmHG Vent. Rate : 075 BPM Atrial Rate : 075 BPM P-R Int : 130 ms QRS Dur : 100 ms QT Int : 406 ms P-R-T Axes : 058 021 023 degrees QTc Int : 453 ms Normal sinus rhythm RSR' or QR pattern in V1 suggests right ventricular conduction delay Otherwise Normal ECG When compared with ECG of 21-MAY-2023 12:52, Premature ventricular complexes are no longer Present Confirmed by Robinson Glez ([id number]) on 08/30/2023 1:01:32 PM Referred By: REFERRED SELF Confirmed By:Robinson Glez
[2023-08-30] MEDS: VENLAFAXINE HCL XR 75 MG CAPXR PO SCH (19:50)
[2023-08-30] MEDS: VENLAFAXINE HCL XR 150 MG CAPXR PO SCH (19:50)
--- NOTE | 2023-08-30 21:50 | Hospitalist Progress Note ---
Date of Service August 30, 2023 Assessment & Plan (1) Abrasion of penis with infection: Plan: -Admit to med/surge -Currently stable and non-toxic appearing -Patient developed progressive penile, scrotal, and suprapubic pain, erythema, and swelling after initially cutting the head of his penis on a UA collection cup approximately 2 weeks ago -Was started on PO Amoxicillin by [place] [facility] on 08/28, patient took 3 doses prior to arrival -Will call [facility] to see if they can fax culture results -He is non-toxic on exam, WBC WNL, procal negative, UA negative, but with elevated CRP and signs of inflammation/cellulitis on CT of the Pelvis -Patient is without signs of gas-producing organism on physical exam and CT of the pelvis with con -ED staff spoke with Urology who will evaluate the patient tonight or tomorrow, recommends observation with IV unasyn for now -Will continue with Unasyn as it will cover and left great toe infection -Blood cultures and UA were collected prior to antibiotics -PRN tylenol and morphine for pain -Hold chemical DVT PPX for now in case OR would be needed, BL SCD's for now Ordered STI: panel. (2) Cellulitis of left toe: Plan: -Patient with erythema, swelling, and tenderness of the left great toe -Patient removed medial half of the left great toenail as he thought he had a hangnail -No current drainage, xray negative for osseous involvement -No signs of proximally swelling to suggest gout/pseudogout at this time -Continue unasyn for now; if toe does not improve on unasyn consider adding MRSA coverage -Continue pain control with tylenol and morphine (3) DMII (diabetes mellitus, type 2): Plan: -Hold metformin and ozempic -Monitor BSG ACHS goal is 110-140 -Start CF of 50 ACHS for now -DMII/HH diet -Adjust regimen as needed (4) Depression: Plan: -Continue Venlafaxine (5) BPH with obstruction/lower urinary tract symptoms: Plan: -Continue flomax Admission and Anticipated Discharge Date Admission Date: August 29, 2023 Subjective 48 yo male reports that he has pain from his left great big toe and it radiates down the lower third of his leg. Review of Systems Review of Systems: All systems reviewed & are unremarkable except as noted in HPI & below Physical Exam Physical Exam: General: In no acute distress, stated age, well-nourished, good hygiene, non- toxic appearing HEENT: Normocephalic, atraumatic, no scleral icterus, pupils around round, symmetrical, and reactive to light, moist mucus membranes, trachea midline, no thyromegaly Chest/Pulm: No respiratory distress, symmetrical chest expansion, clear breath sounds throughout Cardiac: RRR, no murmurs noted Abdomen: Negative for ascites and bruising, normoactive bowel sounds, soft, non- tender to palpation throughout Extremities: Radial, dorsalis pedis, and posterior tibial pulses are intact and symmetrical, no edema noted in the BL LE's Skin: As described above Neuro: no focal defects,no tremors noted Psych: No acute distress, calm and cooperative during the exam Results & Data Results & Data Vital Signs (Past 12 Hours) Vital Signs Temp Pulse Resp BP Pulse Ox O2 Del Method 08/30/23 19:45 Room Air 08/30/23 19:40 37.0 C 79 16 153/104 H 97 Room Air 08/30/23 14:29 36.8 C 81 139/85 97 Room Air PG Care Time/CCT Total # of Minutes Spent Total Time Spent with Patient: Total time spent is greater than 50% in coordination of care (as documented) at patient's floor/unit and/or counseling patient: Coding Level of Care Code 42797 SUB INP/OBS CARE 2/35MIN Diagnoses Abrasion of penis with infection S30.812A; N48.29 Encounter type: initial encounter Cellulitis of left toe L03.032 DMII (diabetes mellitus, type 2) E11.9 Depression F32.9 BPH with obstruction/lower urinary tract symptoms N40.1; N13.8 (1) Abrasion of penis with infection Encounter type: initial encounter Qualified Code(s): S30.812A - Abrasion of penis, initial encounter; N48.29 - Other inflammatory disorders of penis
[2023-08-31] MEDS: AMPICILLIN/SULBACTAM SOD 3,000 MG in SODIUM CHLOR 0.9% MINI-B 100 ML IV SCH ×3 (00:15→12:36)
[2023-08-31] MEDS: ACETAMINOPHEN 325 MG TAB PO PRN (00:15)
--- NOTE | 2023-08-31 07:00 | Orthopedic Consultation ---
Date of Service August 31, 2023 Assessment & Plan (1) Cellulitis of left toe: It appears that he has a little bit of cellulitis around his left great toe. He is currently on Unasyn for the strep infection. If the cellulitis around his great toe continues, we may consider adding a cephalosporin for that. He is a diabetic but I do not see anything operative at this time. He can continue to be weightbearing as tolerated. He currently has an appointment to see me in the office in about 6 weeks and he should keep that appointment. He can be discharged from an orthopedic standpoint on oral antibiotics. If you have any further questions please feel free to [place] text me or contact me personally on my cell phone at [phone]. History of Present Illness Reason for Consultation: Cellulitis left great toe. Requesting Physician: . Attending Physician: Burt Torresshaquille Durán is a pleasant 48-year-old male who I did an open reduction internal fixation of his left ankle on about 3-1/2 months ago. He is done very well postoperatively. Has been up and ambulating on it. He he has not been having much pain until recently. He has since acquired a strep infection in his groin area. He has had multiple arthralgias with that. 1 of those being significant pain in his left ankle and down to his great toe. He is hospitalized for the strep infection. Orthopedics was consulted for the left great toe.. Allergies Allergy/AdvReac Type Severity Reaction Status Date / Time dog dander Allergy Verified 08/29/23 17:09 house dust mite Allergy Verified 08/29/23 17:09 clarithromycin AdvReac Mild METALLIC Verified 08/29/23 17:09 TASTE IN MOUTH Home Medications Medication Instructions Recorded Confirmed Type fluticasone propionate 50 1 sprays intranasal BID 11/14/19 08/29/23 History mcg/actuation nasal spray,suspension (Flonase Allergy Relief) levocetirizine 5 mg tablet (Xyzal) 5 mg PO PM Allergy Symptoms 11/14/19 08/29/23 History montelukast 10 mg tablet 10 mg PO PM 11/14/19 08/29/23 History (Singulair) metformin 500 mg tablet 1,000 mg PO AMPM 05/20/23 08/29/23 History semaglutide 0.25 mg or 0.5 mg (2 0.5 mg subcut WK 05/20/23 08/29/23 History mg/3 mL) subcutaneous pen injector (Ozempic) tamsulosin 0.4 mg capsule 0.4 mg PO AMHS 05/20/23 08/29/23 History venlafaxine 75 mg capsule,extended See Rx Instructions .Route .COMPLEX 05/20/23 08/29/23 History release 24 hr aspirin 81 mg tablet,delayed 81 mg PO DAILY 07/20/23 08/29/23 History release (Adult Aspirin Regimen) amoxicillin 500 mg capsule 500 mg PO Q8H 08/29/23 08/29/23 History methenamine hippurate 1 gram tablet 1 g PO DAILY PRN urinary issues 08/29/23 08/29/23 History omega-3 fatty acids-vitamin E 1 cap PO PM 08/29/23 08/29/23 History 1,000 mg capsule venlafaxine 150 mg See Rx Instructions .Route .COMPLEX 08/29/23 08/29/23 History capsule,extended release 24 hr Past Med/Surg History Medical History BPH with obstruction/lower urinary tract symptoms Kidney stones Depression Diabetes Recurrent nephrolithiasis Surgical History Previous back surgery 02/2010 Social History Smoking Status: Never smoker Do You Dip or Chew Tobacco: No; Hx Alcohol Use: Yes Alcohol type: beer Hx Substance Use: No Preferred Language: Gabonese 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 Feels Safe at Home: Yes Safety Concerns: Feels Safe At This Time Assistive Devices: Cane, Walker, Wheelchair and Other Review of Systems All systems reviewed & are unremarkable except as noted in HPI & below. Physical Exam On physical examination left great toe, there is a small area of the nail on the medial aspect that is missing. There is a very small red area around there. No signs of abscess. No signs of deep infection. He has full motion of his toe. His ankle looks fine. He is good motion of his ankle. No signs of infection there.. Constitutional WD/WN, vitals as above Eyes PERRL, conjunctivae normal, anicteric sclerae ENMT external ear and nose normal, oropharynx normal Neck trachea midline, no thyromegaly Respiratory normal respiratory effort Cardiovascular RRR, no murmur, no edema Gastrointestinal (Abdomen) normal bowel sounds, soft, nontender, no hepatosplenomegaly Psychiatric A+Ox3, euthymic affect Results & Data Results & Data Laboratory Results . Diagnostic Findings X-rays of his left foot show no signs of bony involvement. The x-rays are essentially negative.. PG Care Time/CCT Total # of Minutes Spent Total Time Spent with Patient: Total time spent is greater than 50% in coordination of care (as documented) at patient's floor/unit and/or counseling patient: Coding Level of Care Code 33810 IN/OBS CONSULT LVL 4,60M Diagnoses Cellulitis of left toe L03.032
[2023-08-31 07:58] LABS: Basophils # (auto) 0.04 K/uL (0.00-0.20); Basophils % (auto) 0.5 %; Eosinophils # (auto) 0.16 K/uL (0.00-0.50); Eosinophils % (auto) 2.1 %; Hematocrit (blood only) 38.1 % (42.0-52.0); Hemoglobin 12.5 g/dl (14.0-18.0); Immature Granulocytes # (auto) 0.04 K/uL (0.01-0.20); Immature Granulocytes % (auto) 0.5 %; Lymphocytes % (auto) 33.5 %; Mean Corpuscular Hemoglobin 28.2 pg (25.0-34.0); Mean Corpuscular Hgb Conc 32.8 g/dL (32.0-36.0); Mean Platelet Volume 9.6 fL (9.4-12.4); Monocytes % (auto) 5.2 %; Neutrophils # (auto) 4.52 K/uL (1.40-6.50); Neutrophils % (auto) 58.2 %; Platelet Count 242 K/uL (130-400); RDW Coefficient of Variation 13.3 % (11.5-14.5); RDW Standard Deviation 41.7 fL (36.4-46.3); Red Blood Count 4.43 M/uL (4.70-6.10); White Blood Count 7.76 K/ul (4.8-10.8)
[2023-08-31 08:16] LABS: Albumin Globulin Ratio 1.3 (0.9-2); Albumin Level 3.9 gm/dl (3.4-5.0); BUN Creatinine Ratio 12.2 (10-20); Bilirubin,Total 0.6 mg/dl (0.2-1.0); C Reactive Protein 0.81 mg/dl (0-0.5); Calcium 8.7 mg/dl (8.6-10.3); Est GFR (African American) 105.2 ml/min; Est GFR (Non-African American) 90.8 ml/min; Potassium 4.2 mmol/L (3.5-5.1); Total Protein 6.9 gm/dl (6.0-8.3)
[2023-08-31] MEDS: INSULIN ASPART PER UNIT CHARGE SC SCH ×2 (08:44→12:50)
[2023-08-31] MEDS: ASPIRIN 81 MG ECTAB PO SCH (08:45)
[2023-08-31] MEDS: POTASSIUM CITRATE 10 MEQ TAB PO SCH (08:45)
[2023-08-31] MEDS: TAMSULOSIN HCL 0.4 MG CAP PO SCH (08:45)
--- NOTE | 2023-08-31 10:29 | Urology Progress Note ---
Date of Service August 31, 2023 Assessment & Plan (1) Balanitis: Plan Reviewed his full history In my opinion he has mild balanitis at most His culture shows some strep but I suspect he probably has a fungal infection as well I will treat with topical nystatin and triamcinolone ointment Okay to continue coverage with oral antibiotics He does have follow-up scheduled with his typical urologist and I suggest he continue with that plan No indication to remain in the hospital Admission and Anticipated Discharge Date Admission Date: August 29, 2023 Subjective Patient seen and examined I reviewed his record from yesterday and I discussed the timeframe of events with him in detail. We spent approximately 20 minutes reviewing his full urological history He reports that he is feeling much better today than he was yesterday He has minimal suprapubic tenderness No fevers or chills that he can really appreciate at the moment No significant penile discharge comfort His ankle discomfort has also resolved He reports that he saw Dr. Shore earlier today felt comfortable with the status of his left ankle Physical Exam Physical Exam: Somewhat buried penis After retracting the foreskin I inspected and he does have a few white patches around the coronathese appear to me to be most consistent with minor balanitislikely fungal but possibly superinfected with bacteria He has no ulcerated lesions with bleeding He does have a few condylomas on the lateral aspect of his penile shaft Results & Data Vital Signs (Past 12 Hours) Vital Signs Temp Pulse Resp BP Pulse Ox O2 Del Method 08/31/23 07:25 36.6 C 70 18 132/92 96 Room Air 08/30/23 23:08 36.6 C 82 18 144/86 H 97 Room Air PG Care Time/CCT Total # of Minutes Spent Total Time Spent with Patient: Total time spent is greater than 50% in coordination of care (as documented) at patient's floor/unit and/or counseling patient: Prolonged Care Time 35 minutes plus on the visit today Coding Level of Care Code 40998 SUB INP/OBS CARE 2/35MIN Diagnoses Balanitis N48.1
[2023-08-31] MEDS ORDERED: NYSTATIN/TRIAMCIN CR 15 GM TUBE EXT SCH (11:00)
--- NOTE | 2023-08-31 11:01 | Discharge Summary ---
Date of Service August 31, 2023 Admission HPI Per Admitting Provider Luis Armando is a 48 year old male with a PMH significant for DMII, kidney stone disease, BPH, and anxiety who presented to the [facility] ED on 08/29 for multiple complaints including progressive penile/pelvic swelling and discomfort and left great toe pain/inflammation. He remained stable in the ED. Labs including CBC, CMP, procal, and CRP were significant for a CRP of 1.78. Xray of the left toe was negative for fracture or osseous involvement. Pelvis CT w/IV con read as "1. Suprapubic fat stranding is seen compatible with cellulitis, right greater than left. Right-sided inguinal lymphadenopathy is seen which is likely reactive. 2. Diverticulosis without diverticulitis.". The ED spoke with Urology due to concern for rapidly developing scrotal/pelvic swelling and inflammation. While his WBC and procal were WNL and Pelvis CT was negative for signs of gas, Urology agreed with admission/observation on IV Unasyn to ensure the patient's infection does not progress. Prior to admission the patient had blood/Urine cul tures obtained and was ordered a dose of Unasyn, 30 mg IV toradol, 1mg IV Dilaudid, and 1L NSS. At the time of the exam the patient was sitting in bed in no acute distress. He states that he was seen for yearly follow up at the [facility] clinic approximately 2 weeks ago. He gave them a UA during his appointment and states that he accidentally cut the left side of the head of his penis on the UA cup while providing a sample. A few days later that patient developed a small ulcer at the site of his cut. He thought he was developing a fungal infection and started to apply a topical antifungal cream without improvement. On 09/01 he noticed some white pustules on the head of his penis and went to the [facility] for evaluation. They took a swab of the infected area of his penis and called him 48 hours later stating that he was growing strep on the culture. They prescribed him Amoxicillin, he has taken 3 doses as of ED arrival. He states that he presented to the ED today as he has had progressive scrotal, penile, and suprapubic pain. He denies fever, chest pain, SOB, abd pain, nausea, vomiting, hematuria, melena, diarrhea, LE swelling and recent trauma. He adds that he started to develop pain in the left great toe at the beginning of the week. He thought he was developing an in-grown toenail; because of this he removed the medial half of the left great toenail but his pain and swelling has progressed. Since receiving a dose of dilaudid his pain is now controlled. Please refer to Dr. Camejo's attestation for any changes to the treatment plan Discharge Exam General: In no acute distress, stated age, well-nourished, good hygiene, non- toxic appearing HEENT: Normocephalic, atraumatic, no scleral icterus, pupils around round, symmetrical, and reactive to light, moist mucus membranes, trachea midline, no thyromegaly Chest/Pulm: No respiratory distress, symmetrical chest expansion, clear breath sounds throughout Cardiac: RRR, no murmurs noted Abdomen: Negative for ascites and bruising, normoactive bowel sounds, soft, non- tender to palpation throughout Extremities: Radial, dorsalis pedis, and posterior tibial pulses are intact and symmetrical, no edema noted in the BL LE's Skin: As described above Neuro: no focal defects,no tremors noted Psych: No acute distress, calm and cooperative during the exam Discharge Data Allergies Allergy/AdvReac Type Severity Reaction Status Date / Time dog dander Allergy Verified 08/29/23 17:09 house dust mite Allergy Verified 08/29/23 17:09 clarithromycin AdvReac Mild METALLIC Verified 08/29/23 17:09 TASTE IN MOUTH Consultations 08/29/23 16:50 Consult Urology Routine 08/29/23 17:06 ED Decision to Admit Stat 08/30/23 17:17 Consult Orthopedic Surgery Routine Ordered Studies 08/29/23 13:32 CT pelvis w/IV con only Stat Hospital Course (1) Abrasion of penis with infection: -Admit to med/surge -Currently stable and non-toxic appearing -Patient developed progressive penile, scrotal, and suprapubic pain, erythema, and swelling after initially cutting the head of his penis on a UA collection cup approximately 2 weeks ago -Was started on PO Amoxicillin by [facility] on 08/28, patient took 3 doses prior to arrival -Will call [facility] to see if they can fax culture results -He is non-toxic on exam, WBC WNL, procal negative, UA negative, but with elevated CRP and signs of inflammation/cellulitis on CT of the Pelvis -Patient is without signs of gas-producing organism on physical exam and CT of the pelvis with con -Consulted Urology: no intervention required. -Patient will followup with his outpatient Urologist: will discharge on augmentin, topical antifungal cream and low potency topical corticosteroid Ordered STI: panel. (2) Cellulitis of left toe: -Patient with erythema, swelling, and tenderness of the left great toe -Patient removed medial half of the left great toenail as he thought he had a hangnail -No current drainage, xray negative for osseous involvement -No signs of proximally swelling to suggest gout/pseudogout at this time -Continue unasyn: -Continue pain control with tylenol and morphine (3) DMII (diabetes mellitus, type 2): resume home meds. (4) Depression: -Continue Venlafaxine (5) BPH with obstruction/lower urinary tract symptoms: -Continue flomax Discharge Plan Discharge Items Patient Disposition: Home - Self-Care Reason For Visit: PELVIC/SCROTAL INFECTION, LEFT TOE PAIN Discharge Diagnosis: Left toe pain Activity: Resume your previous activity Non-emergency contact: Primary Care Provider Call non-emergency contact if: you have any medication questions Follow-up/Referrals: Chacorta Ulrich DO [Primary Care Provider] - 09/22/23 7:00 am Diet: Carb Consistent or DM2 Addtl Attending Provider Instructions: Recommend close followup with your Urologist in 1-2 weeks Recommend followup with PCP in 1-2 weeks Please apply nystatin ointment to foreskin twice a day for 2 weeks Also apply small film of hydrocortisone cream on inflamed area of foreskin. You will also be on augmentin twice a day, take first dose tonight. Pending Studies at Discharge: No Stand-Alone Forms: My [facility], Smoking Cessation Medications and DC Order Prescriptions: New amoxicillin-pot clavulanate 875-125 mg tablet 1 tab PO BID Qty: 14 0RF nystatin 100,000 unit/gram ointment 1 applic topical BID Qty: 15 0RF Rx Instructions: apply to inflamed area in genital region for 2 weeks hydrocortisone 0.5 % cream 1 applic topical BID Qty: 28.4 0RF Rx Instructions: thin film for 1 week on inflamed area in genital region Continued montelukast [Singulair] 10 mg tablet 10 mg PO PM levocetirizine [Xyzal] 5 mg tablet 5 mg PO PM fluticasone propionate [Flonase Allergy Relief] 50 mcg/actuation spra y,suspension 1 sprays INTNAS BID aspirin [Adult Aspirin Regimen] 81 mg tablet,delayed release (DR/EC) 81 mg PO DAILY venlafaxine 75 mg capsule,extended release 24hr See Rx Instructions .ROUTE .COMPLEX Rx Instructions: Take 75mg capsule w/ 150mg capsules once every evening for a total dose of 225mg tamsulosin 0.4 mg capsule 0.4 mg PO AMHS metformin 500 mg tablet 1,000 mg PO AMPM Ozempic 0.25 mg or 0.5 mg (2 mg/3 mL) pen injector 0.5 mg SUBCUT WK Rx Instructions: Wednesday venlafaxine 150 mg capsule,extended release 24hr See Rx Instructions .ROUTE .COMPLEX Rx Instructions: Take 150mg capsule w/ 75mg capsules once every evening for a total dose of 225mg methenamine hippurate 1 gram tablet 1 g PO DAILY PRN (Reason: urinary issues) omega-3 fatty acids-vitamin E 1,000 mg Capsule 1 cap PO PM Discontinued amoxicillin 500 mg capsule 500 mg PO Q8H Rx Instructions: Start Date 08/28/23 - End Date 09/07/23: As of 08/29/23 @1618 - Pt has taken 3 doses. Discharge Orders: Discharge Order (Routine); Ordered 08/31/23 Ordered By: Burt Cole/Other Patient Handouts: Cellulitis Dc Admission Data Admit Date/Time: 08/29/23 17:09 Attending Provider: Burt Park Admit Provider: Kamar Camejo Primary Care Provider: Chacorta Ulrich Other Providers: Yury Dunlap; Kamar Camejo; Rogre Shore Other Interventions: Discharge Summary Assessment (RN) Last Done: 08/31/23 13:51 Coding Diagnoses Abrasion of penis with infection S30.812A; N48.29 Encounter type: initial encounter Cellulitis of left toe L03.032 DMII (diabetes mellitus, type 2) E11.9 Depression F32.9 BPH with obstruction/lower urinary tract symptoms N40.1; N13.8
[2023-08-31 13:02] LABS: Chlam trach RNA(Genit,Ureth,Ur Not Detected (NotDetected); GC(Neis gon)RNA(Genit,Ureth,Ur Not Detected (NotDetected)
== END 2023-08-31 14:35 | disposition home or self-care (01) ==
LOC: ED 12:54 → EDINP 12:54 → SUATTDRO 17:09 → EDINP 19:48 → 3N 20:06